=== PATIENT | female | born 1960 | race Two or more races ===

== ENCOUNTER 2016-12-13 15:48 | Emergency (ER) | payer SELFPAY ==
[~2016-12-13] VITALS: Ht 162.6 cm; Wt 72.6 kg
[2016-12-13] MEDS ORDERED: VITATAB11 PO (16:08)
[2016-12-13] MEDS ORDERED: LOSA25TA8 PO (16:08)
[2016-12-13] MEDS ORDERED: GLYB5TA PO (16:08)
[2016-12-13] MEDS ORDERED: [UNRECOGNIZED DRUG - OTHER] SQ (16:08)
[2016-12-13] MEDS ORDERED: PLAV75TA38 PO (16:08)
[2016-12-13] MEDS ORDERED: HYDR50TAB PO (16:08)
[2016-12-13] MEDS ORDERED: ASPI325T PO (16:08)
[2016-12-13] MEDS ORDERED: METO50TA2 PO (16:08)
[2016-12-13] MEDS ORDERED: LORA2TAB9 PO (16:08)
[2016-12-13 18:59] VITALS: BP 178/8
== END 2016-12-13 19:04 | disposition home or self-care (01) ==
LOC: M ED 18:09
DX: I10 Essential (primary) hypertension (principal); Z86.73 Personal history of transient ischemic attack (TIA), and cerebral infarction without residual deficits; Z79.02 Long term (current) use of antithrombotics/antiplatelets; Z79.82 Long term (current) use of aspirin; Z79.899 Other long term (current) drug therapy

== ENCOUNTER → 2017-01-12 | Outpatient (REF) | payer OTHER ==
[~2017-01-12] MED LIST: ASPI325T PO; GLYB5TA PO; HYDR50TAB PO; LORA2TAB9 PO; LOSA25TA8 PO; METO50TA2 PO; PLAV75TA38 PO; VITATAB11 PO; [UNRECOGNIZED DRUG - OTHER] SQ
== END ==
LOC: M LABDRAWP 11:18 → MERGE 11:18
DX: Z11.3 Encounter for screening for infections with a predominantly sexual mode of transmission (principal); Z53.9 Procedure and treatment not carried out, unspecified reason

== ENCOUNTER → 2017-01-12 | Outpatient (CLI) | payer SELFPAY | LOC: M LAB 13:23 | DX: R76.11 Nonspecific reaction to tuberculin skin test without active tuberculosis (principal) ==

== ENCOUNTER → 2017-01-12 | Outpatient (REF) | payer OTHER | LOC: MERGE 11:08 → M SFHCPLAZ 11:08 | PROVIDERS: ATTEND Family Medicine | DX: Z13.0 Encounter for screening for diseases of the blood and blood-forming organs and certain disorders involving the immune mechanism (principal); I10 Essential (primary) hypertension; R22.1 Localized swelling, mass and lump, neck; E11.9 Type 2 diabetes mellitus without complications; Z11.4 Encounter for screening for human immunodeficiency virus [HIV]; Z11.3 Encounter for screening for infections with a predominantly sexual mode of transmission ==

== ENCOUNTER → 2017-01-21 | Outpatient (CLI) | payer SELFPAY ==
[2017-01-21 09:48] LABS: MEAN CORPUSCULAR HEMOGLOBIN 23.9 pg (27.0-33.0); MEAN CORPUSCULAR HGB CONC 31.7 g/dl (32.0-36.5); MEAN CORPUSCULAR VOLUME 75.5 fl (80.0-96.0); RED CELL DISTRIBUTION WIDTH 14.1 % (11.5-14.5); WHITE BLOOD COUNT 14.7 K/mm3 (4.0-10.0)
[2017-01-21 10:11] LABS: ALBUMIN 3.3 GM/DL (3.2-5.2); ALBUMIN/GLOBULIN RATIO 0.66 (1.00-1.93); ALKALINE PHOSPHATASE 166 U/L (45-117); ALT/SGPT 18 U/L (12-78); ANION GAP 9 MEQ/L (8-16); AST/SGOT 9 U/L (15-37); BILIRUBIN,TOTAL 0.2 MG/DL (0.2-1.0); BLOOD UREA NITROGEN 63 MG/DL (7-18); CALCIUM LEVEL 8.9 MG/DL (8.5-10.1); CARBON DIOXIDE LEVEL 21 MEQ/L (21-32); CHLORIDE LEVEL 100 MEQ/L (98-107); CHOLESTEROL LEVEL 239 MG/DL (<200); CREATININE FOR GFR 1.78 MG/DL (0.55-1.02); FREE T4 1.26 NG/DL (0.76-1.46); GLOMERULAR FILTRATION RATE 31.2 (>51); GLUCOSE, FASTING 208 MG/DL (70-105); SODIUM LEVEL 130 MEQ/L (136-145); TOTAL PROTEIN 8.3 GM/DL (6.4-8.2); TRIGLYCERIDES LEVEL 612 MG/DL (<150)
[2017-01-22 09:59] LABS: FOLATE > 24.0 NG/ML; VITAMIN B12 LEVEL > 2000 PG/ML
== END ==
LOC: M LAB 08:01
PROVIDERS: ATTEND Family Medicine
DX: Z13.0 Encounter for screening for diseases of the blood and blood-forming organs and certain disorders involving the immune mechanism (principal); Z11.1 Encounter for screening for respiratory tuberculosis; E11.9 Type 2 diabetes mellitus without complications; R22.1 Localized swelling, mass and lump, neck; I10 Essential (primary) hypertension

== ENCOUNTER → 2017-01-21 | Outpatient (CLI) | payer SELFPAY | LOC: M LAB 08:09 | DX: Z11.3 Encounter for screening for infections with a predominantly sexual mode of transmission (principal) ==

== ENCOUNTER → 2017-01-31 | Outpatient (REF) | payer OTHER ==
[~2017-01-31] MED LIST changes: -METO50TA2 PO; +METO50TA7 PO; +PLAV1TAB2 PO; -PLAV75TA38 PO
== END ==
LOC: M SFHCPLAZ 15:40
PROVIDERS: ATTEND Family Medicine
DX: E11.29 Type 2 diabetes mellitus with other diabetic kidney complication (principal)

== ENCOUNTER → 2017-05-01 | Outpatient (REF) | payer OTHER ==
[2017-05-01 12:27] LABS: BASO # 0.1 10^3/uL (0.0-0.2); BASO % 0.6 % (0.0-1.0); EOS # 0.4 10^3/uL (0.0-0.50); IMMATURE GRANULOCYTE % 0.4 % (0-0); LYMPH # 2.4 10^3/uL (1.5-4.5); LYMPH % 23.1 % (24.0-44.0); MEAN CORPUSCULAR HEMOGLOBIN 22.7 pg (27.0-33.0); MEAN CORPUSCULAR HGB CONC 31.4 g/dl (32.0-36.5); MONO # 0.6 10^3/uL (0.0-0.8); MONO % 5.4 % (0.0-5.0); NEUTROPHILS # 6.9 10^3/uL (1.8-7.7); NEUTROPHILS % 66.5 % (36.0-66.0); PLATELET COUNT, AUTOMATED 528 10^3/uL (150-450); WHITE BLOOD COUNT 10.4 10^3/uL (4.0-10.0)
[2017-05-01 12:29] LABS: ADD MANUAL DIFFER NO; ADD MORPHOLOGY? YES; DIFF SLIDE NUMBER 239; MEAN CORPUSCULAR VOLUME 72.2 fl (80.0-96.0)
[2017-05-01 12:58] LABS: INR 0.92
[2017-05-01 13:01] LABS: CALCIUM LEVEL 9.1 MG/DL (8.5-10.1); GLOMERULAR FILTRATION RATE 27.2 (>51); POTASSIUM SERUM 4.7 MEQ/L (3.5-5.1)
[2017-05-01 13:30] LABS: HYPOCHROMASIA 1+; MICROCYTOSIS 2+
== END ==
LOC: M LAB REF 12:01
PROVIDERS: ATTEND Surgery Vascular Surgery
DX: Z01.818 Encounter for other preprocedural examination (principal); D69.8 Other specified hemorrhagic conditions; I70.213 Atherosclerosis of native arteries of extremities with intermittent claudication, bilateral legs

== ENCOUNTER → 2017-05-10 | Outpatient (REF) | payer OTHER ==
[2017-05-10 14:12] LABS: CREATININE FOR GFR 2.09 MG/DL (0.55-1.02); GLOMERULAR FILTRATION RATE 25.9 (>51)
== END ==
LOC: M LAB REF 11:32
PROVIDERS: ATTEND Surgery Vascular Surgery
DX: N18.6 End stage renal disease (principal); I70.213 Atherosclerosis of native arteries of extremities with intermittent claudication, bilateral legs

== ENCOUNTER → 2017-08-13 | Outpatient (REF) | payer OTHER | LOC: M SFHCPLAZ 18:52 | DX: E11.59 Type 2 diabetes mellitus with other circulatory complications (principal); D50.9 Iron deficiency anemia, unspecified; L97.419 Non-pressure chronic ulcer of right heel and midfoot with unspecified severity; E87.1 Hypo-osmolality and hyponatremia ==

== ENCOUNTER → 2017-08-24 | Outpatient (REF) | payer OTHER ==
[2017-08-24 14:21] LABS: ESTIMATED AVERAGE GLUCOSE 226 MG/DL (60-110); HEMOGLOBIN A1c 9.5 %
[2017-08-27 15:33] LABS: CREATININE, URINE 45.7 MG/DL; MAU/CREAT RATIO 509.8 MCG/MG (0.0-30.0)
== END ==
LOC: M SFHCPLAZ 12:00
DX: E11.59 Type 2 diabetes mellitus with other circulatory complications (principal)

== ENCOUNTER → 2017-08-30 | Outpatient (CLI) | payer MEDICAID, OTHER ==
[2017-08-30 14:37] LABS: BASO # 0.1 10^3/uL (0.0-0.2); BASO % 0.6 % (0.0-1.0); EOS # 0.8 10^3/uL (0.0-0.50); EOS % 6.8 % (0.0-3.0); HEMATOCRIT 32.2 % (36.0-47.0); HEMOGLOBIN 9.8 g/dl (12.0-16.0); IMMATURE GRANULOCYTE # 0.1 10^3/uL (0-0); IMMATURE GRANULOCYTE % 0.4 % (0-0); LYMPH # 3.2 10^3/uL (1.5-4.5); LYMPH % 27.2 % (24.0-44.0); MEAN CORPUSCULAR HGB CONC 30.4 g/dl (32.0-36.5); MEAN CORPUSCULAR VOLUME 72.4 fl (80.0-96.0); MONO # 0.7 10^3/uL (0.0-0.8); MONO % 5.7 % (0.0-5.0); NEUTROPHILS % 59.3 % (36.0-66.0); PLATELET COUNT, AUTOMATED 558 10^3/uL (150-450); RED BLOOD COUNT 4.45 10^6/uL (4.00-5.40); RED CELL DISTRIBUTION WIDTH 14.9 % (11.5-14.5); WHITE BLOOD COUNT 11.8 10^3/uL (4.0-10.0)
[2017-08-30 14:57] LABS: ERYTHROCYTE SEDIMENTATION RATE 118 mm/hr (0-30)
[2017-08-30 15:42] LABS: ESTIMATED AVERAGE GLUCOSE 226 MG/DL (60-110); HEMOGLOBIN A1c 9.5 %
[2017-08-30 16:03] LABS: ANION GAP 10 MEQ/L (8-16); BLOOD UREA NITROGEN 58 MG/DL (7-18); CALCIUM LEVEL 9.2 MG/DL (8.5-10.1); CARBON DIOXIDE LEVEL 22 MEQ/L (21-32); CHLORIDE LEVEL 104 MEQ/L (98-107); CREATININE FOR GFR 1.83 MG/DL (0.55-1.30); FERRITIN 110 NG/ML (8-252); GLOMERULAR FILTRATION RATE 30.2 (>51); GLUCOSE, FASTING 274 MG/DL (70-100); IRON (FE) 64 UG/DL (50-170); PERCENT SATURATION 22.9 % (13.2-45.0); POTASSIUM SERUM 4.8 MEQ/L (3.5-5.1); SODIUM LEVEL 136 MEQ/L (136-145); TOTAL IRON BINDING CAPACITY 279 UG/DL (250-450)
== END ==
LOC: M LAB 13:01
DX: M85.9 Disorder of bone density and structure, unspecified (principal); E11.59 Type 2 diabetes mellitus with other circulatory complications; L97.419 Non-pressure chronic ulcer of right heel and midfoot with unspecified severity; D50.9 Iron deficiency anemia, unspecified; E87.1 Hypo-osmolality and hyponatremia; S66.912D Strain of unspecified muscle, fascia and tendon at wrist and hand level, left hand, subsequent encounter; X58.XXXD Exposure to other specified factors, subsequent encounter; Y92.89 Other specified places as the place of occurrence of the external cause
CPT/HCPCS: 73110

== ENCOUNTER → 2017-09-01 | Outpatient (REF) | payer MEDICAID | LOC: M LAB 14:05 | DX: E11.59 Type 2 diabetes mellitus with other circulatory complications (principal); D50.9 Iron deficiency anemia, unspecified; L97.419 Non-pressure chronic ulcer of right heel and midfoot with unspecified severity; E87.1 Hypo-osmolality and hyponatremia | CPT/HCPCS: 82270 ==

== ENCOUNTER → 2017-09-02 | Outpatient (REF) | payer MEDICAID ==
[2017-09-02 13:20] LABS: MAU/CREAT RATIO 465.8 MCG/MG (0.0-30.0)
== END ==
LOC: M LAB 12:14
DX: Z00.00 Encounter for general adult medical examination without abnormal findings (principal)

== ENCOUNTER → 2017-12-28 | Outpatient (REF) | payer MEDICAID, OTHER ==
[2017-12-28 14:21] LABS: BASO # 0.1 10^3/uL (0.0-0.2); BASO % 0.6 % (0.0-1.0); EOS # 0.4 10^3/uL (0.0-0.50); EOS % 4.1 % (0.0-3.0); HEMATOCRIT 27.6 % (36.0-47.0); HEMOGLOBIN 8.7 g/dl (12.0-15.5); IMMATURE GRANULOCYTE % 0.5 % (0-3.0); LYMPH # 2.9 10^3/uL (1.5-4.5); LYMPH % 27.6 % (24.0-44.0); MEAN CORPUSCULAR HEMOGLOBIN 23.8 pg (27.0-33.0); MEAN CORPUSCULAR HGB CONC 31.5 g/dl (32.0-36.5); MEAN CORPUSCULAR VOLUME 75.4 fl (80.0-96.0); MONO # 0.6 10^3/uL (0.0-0.8); MONO % 5.5 % (0.0-5.0); NEUTROPHILS # 6.5 10^3/uL (1.8-7.7); NEUTROPHILS % 61.7 % (36.0-66.0); PLATELET COUNT, AUTOMATED 452 10^3/uL (150-450); RED BLOOD COUNT 3.66 10^6/uL (4.00-5.40); RED CELL DISTRIBUTION WIDTH 16.4 % (11.5-14.5); WHITE BLOOD COUNT 10.5 10^3/uL (4.0-10.0)
[2017-12-28 14:27] LABS: APPEARANCE, URINE MANUAL CLOUDY (CLEAR); COLOR, URINE MANUAL LT YELLOW (YELLOW); PROTEIN, URINE MANUAL 3+ mg/dL (NEGATIVE); SPECIFIC GRAVITY,URINE MANUAL 1.006 (1.002-1.035)
[2017-12-28 14:29] LABS: BILIRUBIN, URINE MANUAL NEGATIVE (NEGATIVE); BLOOD URINE MANUAL POSITIVE (NEGATIVE); GLUCOSE, URINE (UA) MANUAL NEGATIVE (NEGATIVE); KETONE, URINE MANUAL NEGATIVE (NEGATIVE); LEUKOCYTE ESTERASE, URINE MAN POSITIVE (NEGATIVE); NITRITE, URINE MANUAL NEGATIVE (NEGATIVE); UROBILINOGEN, URINE MANUAL NORMAL (NORMAL)
[2017-12-28 14:30] LABS: MICROSCOPIC INDICATED? MAN YES (NO)
[2017-12-28 14:31] LABS: BACTERIA, URINE LARGE AMOUNT; HYALINE CAST, URINE NONE SEEN /lpf (0-1); MICROSCOPIC EXAM PERFORMED; SQUAMOUS EPITHELIAL CELL URINE SMALL AMOUNT /hpf (SMALL AMT); WBC, URINE 15-20 /hpf (0-3)
[2017-12-28 14:37] LABS: ALBUMIN 3.1 GM/DL (3.2-5.2); ANION GAP 10 MEQ/L (8-16); BLOOD UREA NITROGEN 67 MG/DL (7-18); CALCIUM LEVEL 8.9 MG/DL (8.5-10.1); CARBON DIOXIDE LEVEL 18 MEQ/L (21-32); CHLORIDE LEVEL 111 MEQ/L (98-107); CREATININE FOR GFR 2.13 MG/DL (0.55-1.30); GLOMERULAR FILTRATION RATE 25.2 (>51); GLUCOSE, FASTING 209 MG/DL (70-100); MAGNESIUM LEVEL 2.2 MG/DL (1.8-2.4); PHOSPHORUS LEVEL 4.5 MG/DL (2.5-4.9); POTASSIUM SERUM 4.9 MEQ/L (3.5-5.1); SODIUM LEVEL 139 MEQ/L (136-145); URIC ACID 6.2 MG/DL (2.6-6.0)
[2017-12-28 14:41] LABS: TOTAL 25(OH) VITAMIN D 18.1 NG/ML (30.0-100.0)
[2017-12-28 14:42] LABS: PTH INTACT 69.8 PG/ML (18.5-88.0)
[2017-12-31 14:23] LABS: FERRITIN 112 NG/ML (8-252); IRON (FE) 53 UG/DL (50-170); PERCENT SATURATION 21.5 % (13.2-45.0); TOTAL IRON BINDING CAPACITY 247 UG/DL (250-450)
== END ==
LOC: M LAB REF 13:51
DX: N18.3 Chronic kidney disease, stage 3 (moderate) (principal); E11.22 Type 2 diabetes mellitus with diabetic chronic kidney disease; N25.81 Secondary hyperparathyroidism of renal origin; D63.1 Anemia in chronic kidney disease; E55.9 Vitamin D deficiency, unspecified

== ENCOUNTER 2018-01-03 10:45 | Emergency (ER) | payer MEDICAID, OTHER ==
[2018-01-03] MEDS: CLINDAMYCIN 150 MG CAP PO (11:54)
== END 2018-01-03 12:03 | disposition home or self-care (01) ==
LOC: M ED 10:45
DX: J34.0 Abscess, furuncle and carbuncle of nose (principal); I10 Essential (primary) hypertension; E78.70 Disorder of bile acid and cholesterol metabolism, unspecified; Z86.73 Personal history of transient ischemic attack (TIA), and cerebral infarction without residual deficits; Z79.899 Other long term (current) drug therapy
CPT/HCPCS: 99282

== ENCOUNTER 2018-01-16 06:44 | Outpatient (CLI) | payer MEDICAID ==
[2018-01-16] MEDS ORDERED: IRON SUCROSE 475 MG in NS 250 ML IV (07:00)
[2018-01-16] MEDS ORDERED: IRON SUCROSE 25 MG in NS 50 ML IV (07:00)
== END 2018-01-16 08:45 | disposition home or self-care (01) ==
LOC: M INFU 06:44
DX: D50.9 Iron deficiency anemia, unspecified (principal); Z53.8 Procedure and treatment not carried out for other reasons

== ENCOUNTER → 2018-01-25 | Outpatient (CLI) | payer MEDICAID ==
[2018-01-25 10:20] LABS: CREATININE,RANDOM URINE 32.6 MG/DL
[2018-01-25 10:20] LABS: TOTAL PROTEIN,RANDOM URINE 56.4 MG/DL (0.0-12.0)
[2018-01-25 10:24] LABS: FERRITIN 126 NG/ML (8-252); IRON (FE) 65 UG/DL (50-170); PERCENT SATURATION 28.8 % (13.2-45.0); TOTAL IRON BINDING CAPACITY 226 UG/DL (250-450)
== END ==
LOC: M LAB 09:25
DX: N18.4 Chronic kidney disease, stage 4 (severe) (principal)
CPT/HCPCS: 83550

== ENCOUNTER → 2018-01-29 | Outpatient (CLI) | payer MEDICAID ==
[2018-01-29 14:16] LABS: BASO # 0.1 10^3/uL (0.0-0.2); BASO % 0.7 % (0.0-1.0); EOS # 0.9 10^3/uL (0.0-0.50); EOS % 8.4 % (0.0-3.0); HEMOGLOBIN 8.9 g/dl (12.0-15.5); IMMATURE GRANULOCYTE % 0.4 % (0-3.0); LYMPH # 2.7 10^3/uL (1.5-4.5); LYMPH % 24.1 % (24.0-44.0); MEAN CORPUSCULAR HEMOGLOBIN 24.3 pg (27.0-33.0); MEAN CORPUSCULAR HGB CONC 31.8 g/dl (32.0-36.5); MEAN CORPUSCULAR VOLUME 76.5 fl (80.0-96.0); MONO # 0.6 10^3/uL (0.0-0.8); MONO % 5.6 % (0.0-5.0); NEUTROPHILS # 6.7 10^3/uL (1.8-7.7); NEUTROPHILS % 60.8 % (36.0-66.0); PLATELET COUNT, AUTOMATED 418 10^3/uL (150-450); RED BLOOD COUNT 3.66 10^6/uL (4.00-5.40); RED CELL DISTRIBUTION WIDTH 15.9 % (11.5-14.5); WHITE BLOOD COUNT 11.1 10^3/uL (4.0-10.0)
[2018-01-29 14:25] LABS: APPEARANCE, URINE CLOUDY (CLEAR); BACTERIA, URINE AUTO 3+ (NEGATIVE); BILIRUBIN, URINE AUTO NEGATIVE (NEGATIVE); BLOOD, URINE BLOOD NEGATIVE (NEGATIVE); COLOR, URINE YELLOW (YELLOW); GLUCOSE, URINE (UA) AUTO 1+ mg/dL (NEGATIVE); KETONE, URINE AUTO NEGATIVE (NEGATIVE); LEUKOCYTE ESTERASE, URINE AUTO 3+ (NEGATIVE); MUCUS, URINE SMALL (NEGATIVE); NITRITE, URINE AUTO NEGATIVE (NEGATIVE); PROTEIN, URINE AUTO 2+ mg/dL (NEGATIVE); RBC, URINE AUTO 17 /HPF (0-3); SPECIFIC GRAVITY URINE AUTO 1.013 (1.002-1.035); SQUAMOUS EPITHELIAL CELL UR AU 0 /HPF (0-6); UROBILINOGEN, URINE AUTO 0.2 mg/dL (0.0-2.0); WBC, URINE AUTO TNTC /HPF (0-3)
[2018-01-29 14:53] LABS: TOTAL PROTEIN,RANDOM URINE 173.5 MG/DL (0.0-12.0); URINE TOTAL PROTEIN 173.5 MG/DL (0-12)
[2018-01-29 14:57] LABS: ALBUMIN 3.1 GM/DL (3.2-5.2); ANION GAP 12 MEQ/L (8-16); BLOOD UREA NITROGEN 56 MG/DL (7-18); CALCIUM LEVEL 8.6 MG/DL (8.5-10.1); CARBON DIOXIDE LEVEL 22 MEQ/L (21-32); CHLORIDE LEVEL 102 MEQ/L (98-107); COMPLEMENT C3 165 MG/DL (90-180); COMPLEMENT C4 42.2 MG/DL (10-40); CREATININE FOR GFR 2.22 MG/DL (0.55-1.30); GLOMERULAR FILTRATION RATE 24.1 (>51); GLUCOSE, FASTING 307 MG/DL (70-100); MAGNESIUM LEVEL 2.3 MG/DL (1.8-2.4); PHOSPHORUS LEVEL 4.9 MG/DL (2.5-4.9); POTASSIUM SERUM 5.1 MEQ/L (3.5-5.1); SODIUM LEVEL 136 MEQ/L (136-145); TOTAL PROTEIN 7.9 GM/DL (6.4-8.2); URIC ACID 6.7 MG/DL (2.6-6.0)
[2018-01-29 15:05] LABS: PTH INTACT 156.8 PG/ML (18.5-88.0); VITAMIN B12 LEVEL 1709 PG/ML
[2018-01-29 15:06] LABS: FOLATE 21.5 NG/ML
[2018-01-31 11:54] LABS: ALBUMIN 3.84 GM/DL (3.29-5.55); ALBUMIN % 48.6 % (55.8-66.1); ALPHA-1-GLOBULIN % 4.9 % (2.9-4.9); ALPHA-1-GLOBULINS 0.39 GM/DL (0.17-0.41); ALPHA-2-GLOBULINS 1.14 GM/DL (0.42-0.99); ALPHA-2-GLOBULINS % 14.4 % (7.1-11.8); BETA-1-GLOBULINS 0.41 GM/DL (0.28-0.60); BETA-1-GLOBULINS % 5.2 % (4.7-7.2); BETA-2-GLOBULINS 0.52 GM/DL (0.19-0.55); BETA-2-GLOBULINS % 6.6 % (3.2-6.5); GAMMA GLOBULIN % 20.3 % (11.1-18.8)
[2018-01-31 13:13] LABS: UPEP INTERPRETATION NO M-SPIKE NOTED; URINE VOLUME RANDOM ML
[2018-02-01 00:10] LABS: ANTINUCLEAR ANTIBODIES DIRECT Negative (Negative); FREE KAPPA LIGHT CHAINS SERUM 102.3 mg/L (3.3-19.4); FREE LAMBDA LIGHT CHAINS SERUM 38.6 mg/L (5.7-26.3); KAPPA/LAMBDA RATIO SERUM 2.65 (0.26-1.65)
[2018-02-01 14:18] LABS: ANCA-ATYPICAL <1:20 titer (Neg:<1:20); ANTI DOUBLE STRAND-DNA AB 3 IU/mL (0-9); CYTOPLASMIC NEUTROP AB ANCA-C <1:20 titer (Neg:<1:20); PERINUCLEAR AB ANCA-P <1:20 titer (Neg:<1:20)
== END ==
LOC: M LAB 13:28
DX: N18.3 Chronic kidney disease, stage 3 (moderate) (principal); E11.22 Type 2 diabetes mellitus with diabetic chronic kidney disease; N25.81 Secondary hyperparathyroidism of renal origin
CPT/HCPCS: 82746

== ENCOUNTER → 2018-01-29 | Outpatient (CLI) | payer MEDICAID ==
[2018-02-02 00:12] LABS: HEMOGLOBIN A2 QUANTITATIVE 2.2 % (1.8-3.2)
== END ==
LOC: M LAB 13:32
DX: D50.9 Iron deficiency anemia, unspecified (principal)

== ENCOUNTER → 2018-02-20 | Outpatient (REF) | payer MEDICAID ==
[2018-02-20 11:32] LABS: APPEARANCE, URINE HAZY (CLEAR); BACTERIA, URINE AUTO 2+ (NEGATIVE); BILIRUBIN, URINE AUTO NEGATIVE (NEGATIVE); BLOOD, URINE BLOOD NEGATIVE (NEGATIVE); COLOR, URINE YELLOW (YELLOW); GLUCOSE, URINE (UA) AUTO NEGATIVE (NEGATIVE); KETONE, URINE AUTO NEGATIVE (NEGATIVE); LEUKOCYTE ESTERASE, URINE AUTO 3+ (NEGATIVE); MUCUS, URINE SMALL (NEGATIVE); NITRITE, URINE AUTO NEGATIVE (NEGATIVE); PROTEIN, URINE AUTO 2+ mg/dL (NEGATIVE); RBC, URINE AUTO 1 /HPF (0-3); SQUAMOUS EPITHELIAL CELL UR AU 0 /HPF (0-6); UROBILINOGEN, URINE AUTO 0.2 mg/dL (0.0-2.0); WBC, URINE AUTO 53 /HPF (0-3)
[2018-02-20 11:44] LABS: BASO # 0.1 10^3/uL (0.0-0.2); BASO % 0.6 % (0.0-1.0); EOS # 0.5 10^3/uL (0.0-0.50); EOS % 4.4 % (0.0-3.0); HEMATOCRIT 30.3 % (36.0-47.0); HEMOGLOBIN 9.5 g/dl (12.0-15.5); IMMATURE GRANULOCYTE % 0.3 % (0-3.0); LYMPH # 3.1 10^3/uL (1.5-4.5); LYMPH % 26.4 % (24.0-44.0); MEAN CORPUSCULAR HEMOGLOBIN 23.7 pg (27.0-33.0); MEAN CORPUSCULAR HGB CONC 31.4 g/dl (32.0-36.5); MEAN CORPUSCULAR VOLUME 75.6 fl (80.0-96.0); MONO # 0.7 10^3/uL (0.0-0.8); MONO % 5.7 % (0.0-5.0); NEUTROPHILS # 7.3 10^3/uL (1.8-7.7); NEUTROPHILS % 62.6 % (36.0-66.0); PLATELET COUNT, AUTOMATED 468 10^3/uL (150-450); RED BLOOD COUNT 4.01 10^6/uL (4.00-5.40); RED CELL DISTRIBUTION WIDTH 15.1 % (11.5-14.5); WHITE BLOOD COUNT 11.7 10^3/uL (4.0-10.0)
[2018-02-20 12:04] LABS: ALBUMIN 3.3 GM/DL (3.2-5.2); ANION GAP 12 MEQ/L (8-16); BLOOD UREA NITROGEN 77 MG/DL (7-18); CALCIUM LEVEL 8.9 MG/DL (8.5-10.1); CARBON DIOXIDE LEVEL 18 MEQ/L (21-32); CHLORIDE LEVEL 108 MEQ/L (98-107); CREATININE FOR GFR 2.07 MG/DL (0.55-1.30); GLOMERULAR FILTRATION RATE 26.1 (>51); GLUCOSE, FASTING 168 MG/DL (70-100); MAGNESIUM LEVEL 1.9 MG/DL (1.8-2.4); PHOSPHORUS LEVEL 4.5 MG/DL (2.5-4.9); POTASSIUM SERUM 4.9 MEQ/L (3.5-5.1); SODIUM LEVEL 138 MEQ/L (136-145); URIC ACID 5.6 MG/DL (2.6-6.0)
[2018-02-20 12:28] LABS: PTH INTACT 73.6 PG/ML (18.5-88.0)
== END ==
LOC: SKLABADC 10:12
DX: N18.3 Chronic kidney disease, stage 3 (moderate) (principal); N39.0 Urinary tract infection, site not specified; E11.22 Type 2 diabetes mellitus with diabetic chronic kidney disease; N25.81 Secondary hyperparathyroidism of renal origin

== ENCOUNTER → 2018-04-10 | Outpatient (REF) | payer MEDICAID ==
[2018-04-10 14:44] LABS: FERRITIN 140 NG/ML (8-252); IRON (FE) 59 UG/DL (50-170); TOTAL IRON BINDING CAPACITY 210 UG/DL (250-450); TOTAL PROTEIN,RANDOM URINE 145.5 MG/DL (0.0-12.0)
[2018-04-10 14:44] LABS: CREATININE,RANDOM URINE 41.1 MG/DL
== END ==
LOC: M LAB REF 13:27
DX: N18.4 Chronic kidney disease, stage 4 (severe) (principal); E11.22 Type 2 diabetes mellitus with diabetic chronic kidney disease; D63.1 Anemia in chronic kidney disease

== ENCOUNTER → 2018-07-08 | Outpatient (REF) | payer OTHER ==
[2018-07-08 18:10] LABS: FERRITIN 188 NG/ML (8-252); IRON (FE) 83 UG/DL (50-170); PERCENT SATURATION 38.8 % (13.2-45.0); TOTAL IRON BINDING CAPACITY 214 UG/DL (250-450)
== END ==
LOC: M LAB REF 17:06
DX: N18.4 Chronic kidney disease, stage 4 (severe) (principal); E11.22 Type 2 diabetes mellitus with diabetic chronic kidney disease; D63.1 Anemia in chronic kidney disease
CPT/HCPCS: 83550

== ENCOUNTER → 2018-09-28 | Outpatient (CLI) | payer OTHER ==
[~2018-09-28] MED LIST changes: +AGGR1CAP; +ALLO100T; +ALLO100T PO; +ASPI1CHW2; +AURY1TAB PO; +CHLO25TA PO; +CLEO300C2 PO; +CLOP75TA2; +D-101000; +FURO20TA2; +FURO20TA2 PO; +FURO40TA2 PO; +GABA-843; +GLIP5TAB20 PO; +GLIP5TAB8; +KEPP1TAB PO; +LANTINJ4 SC; +LEVETIRACETAM; +LOSA25TA14 PO; -LOSA25TA8 PO; +MAPA325T2 PO; +MUPI2OI; +NIFE60TA40; +OMEP20CA3 PO; +PROC1INJ5 IJ; +PROC20004 IJ; +SIMV20TA2 PO; +SODI325T9; +VITA100067 PO
--- NOTE | 2018-09-29 21:30 | ECGEPIP ---
Stationary ECG Study [facility] Test Date: 2018-09-28 Pat Name: KIRSTEN GARCIA Department: Room: - Gender: F Interrelated Special Education Teacher: MICHELLE : 1960 Requested By: Lyndon Awan Order Number: [id number] Reading MD: Sourav Weeks Measurements Intervals [place] Rate: 87 P: 32 AK: 160 QRS: -5 QRSD: 91 T: 31 QT: 366 QTc: 440 Interpretive Statements SINUS RHYTHM POSSIBLE ANTERIOR MYOCARDIAL INFARCTION, PROBABLY OLD VERSUS POOR R-WAVE PROGRESSION NO PRIOR TRACING IN THE SYSTEM Electronically Signed On 09-29-2018 21:30:51 EST by Sourav Weeks
== END ==
LOC: M EKG 12:44
PROVIDERS: ATTEND Anesthesiology
DX: Z01.818 Encounter for other preprocedural examination (principal); I10 Essential (primary) hypertension; E11.9 Type 2 diabetes mellitus without complications; Z86.73 Personal history of transient ischemic attack (TIA), and cerebral infarction without residual deficits; N28.89 Other specified disorders of kidney and ureter

== ENCOUNTER 2018-10-04 11:18 | Day surgery (SDC) | payer OTHER ==
[~2018-10-04] VITALS: Ht 167.6 cm; Wt 66.2 kg
[2018-10-04] MEDS ORDERED: LIDOCAINE 2% INJ 100 MG/5 ML SDV (FOR ANES.) As Ordered ONE (12:53)
[2018-10-04] MEDS ORDERED: ONDANSETRON 4MG/2ML VIAL (J2405) As Ordered ONE (12:53)
[2018-10-04] MEDS ORDERED: PROPOFOL 200 MG/20 ML VIAL As Ordered ONE (12:53)
[2018-10-04] MEDS ORDERED: fentaNYL 250 MCG/5 ML INJECTION (J3010) As Ordered ONE (12:53)
[2018-10-04] MEDS ORDERED: MIDAZOLAM INJ 2 MG/2 ML VIAL (J2250) As Ordered ONE (12:56)
[2018-10-04] MEDS ORDERED: KETAMINE HCL 200 MG/20 ML VIAL As Ordered ONE (12:56)
[2018-10-04] MEDS ORDERED: PHENYLEPHRINE INJ 10MG/ML VIAL (J2370) As Ordered ONE (12:59)
[2018-10-04] MEDS ORDERED: HumaLOG INSULIN (NovoLOG) PER UNIT As Ordered ONE (13:06)
[2018-10-04] MEDS ORDERED: HumaLOG INSULIN (NovoLOG) PER UNIT SC ONE ×3 (13:15→15:45)
[2018-10-04] MEDS ORDERED: HEPARIN SOD (PORCINE) 5000 UNITS/ML VIAL As Ordered ONE (13:25)
[2018-10-04] MEDS ORDERED: ISOVUE-300 61% 50ML VIAL (Q9967) As Ordered ONE (13:25)
[2018-10-04] MEDS ORDERED: LIDOCAINE 1% SDV INJ 30 ML VIAL As Ordered ONE (13:25)
[2018-10-04] MEDS ORDERED: BUPIVACAINE HCL 0.5% 30 ML VIAL As Ordered ONE (13:26)
[2018-10-04] MEDS ORDERED: D5W/0.45% SODIUM CHLORIDE 1,000 ML IV SCH (13:30)
[2018-10-04] MEDS ORDERED: D5W/0.2% SODIUM CHLORIDE 1,000 ML IV ONE (13:45)
[2018-10-04 15:40] VITALS: BP 180/88
[2018-10-04] MEDS ORDERED: LR 1,000 ML IV SCH (15:45)
[2018-10-04] MEDS ORDERED: fentaNYL 100 MCG/2 ML INJECTION (J3010) IV PRN (15:45)
[2018-10-04] MEDS ORDERED: PERCOCET 5MG/325MG TAB PO PRN (15:45)
--- NOTE | 2018-10-30 10:13 | RO ---
DATE OF PROCEDURE: 10/04/2018 PREOPERATIVE DIAGNOSIS: Chronic renal insufficiency nearing end-stage renal disease. POSTOPERATIVE DIAGNOSIS: Chronic renal insufficiency nearing end-stage renal disease. PROCEDURE Left brachiocephalic arteriovenous fistula autogenous creation. ATTENDING SURGEON: Taryn Hebert MD QA REVIEWER: None. ANESTHESIA: Local monitored anesthesia care (MAC). INDICATION: Patient is a 57-year-old female with chronic renal insufficiency nearing end-stage renal disease who will require access for hemodialysis. The patient will undergo placement of a left radiocephalic possible brachiocephalic arteriovenous fistula. Risks, benefits and alternative treatment options were discussed with the patient. ESTIMATED BLOOD LOSS: 15 mL. IV FLUIDS: 300 mL. HEPARIN: None. COMPLICATIONS: None. DRAINS: None. SPECIMENS: None. IMPLANTS: None. PROCEDURE: Patient was taken to the operating room, placed supine on the operating table and the left upper extremity was prepped and draped in a standard surgical fashion. A tourniquet was applied to the forearm which showed no good cephalic vein at the wrist. The tourniquet was moved into the upper arm and there was a small cephalic vein at the antecubital fossa. A transverse incision was made after anesthetizing overlying skin with 1% lidocaine mixed with 0.5% Marcaine. The cephalic vein and brachial artery were sharply dissected free and encircled with vessel loops. The cephalic vein was then transected as far distal as possible with the remnant ligated with a #2-0 silk suture ligature. The cephalic vein was dilated using heparinized saline and anastomosed to the brachial artery in an end-to-side fashion using #6-0 Prolene suture. The incision was then closed using #3-0 Monocryl in a running subcuticular fashion. Steri-Strips and dressings were applied. The patient tolerated the procedure well. All instrument, sponge, and needle counts were correct at the end of the case. There were no complications. Dr. Hebert was present for and directed the entire case. The patient was transferred to the recovery room awake, alert, extubated and in stable condition.
== END 2018-10-04 16:03 | disposition home or self-care (01) ==
LOC: M SDC 11:18
PROVIDERS: ATTEND Surgery Vascular Surgery
DX: N18.6 End stage renal disease (principal); I12.0 Hypertensive chronic kidney disease with stage 5 chronic kidney disease or end stage renal disease; E11.22 Type 2 diabetes mellitus with diabetic chronic kidney disease; E78.00 Pure hypercholesterolemia, unspecified; M10.9 Gout, unspecified; K21.9 Gastro-esophageal reflux disease without esophagitis; F41.9 Anxiety disorder, unspecified; F32.9 Major depressive disorder, single episode, unspecified; D63.1 Anemia in chronic kidney disease; G40.909 Epilepsy, unspecified, not intractable, without status epilepticus; I69.964 Other paralytic syndrome following unspecified cerebrovascular disease affecting left non-dominant side; R60.0 Localized edema; E79.0 Hyperuricemia without signs of inflammatory arthritis and tophaceous disease; N25.81 Secondary hyperparathyroidism of renal origin; Z79.899 Other long term (current) drug therapy; Z79.82 Long term (current) use of aspirin; Z79.01 Long term (current) use of anticoagulants; Z86.718 Personal history of other venous thrombosis and embolism; Z90.710 Acquired absence of both cervix and uterus
CPT/HCPCS: 36415; 36818; 84132; J2250; J2370; J2405; J3010

== ENCOUNTER → 2018-10-17 | Outpatient (CLI) | payer OTHER ==
[~2018-10-17] MED LIST changes: +ASPI-1 PO; -ASPI325T PO; +HEPARIN 1,000 UNITS/ML 10ML VIAL (FOR RADIOLOGY& DIALYSIS ONLY) As Ordered ONE; +ISOVUE-300 61% 50ML VIAL (Q9967) As Ordered ONE; +LIDOCAINE 2% MDV 20 ML VIAL As Ordered ONE; +MIDAZOLAM INJ 2 MG/2 ML VIAL (J2250) As Ordered ONE; +PROTAMINE SULF INJ 50 MG/5 ML VIAL (J2720) As Ordered ONE; +diphenhydrAMINE INJ 50MG/ML VIAL (J1200) As Ordered ONE; +fentaNYL 100 MCG/2 ML INJECTION (J3010) As Ordered ONE
--- NOTE | 2018-10-30 11:52 | REPIR ---
DATE OF PROCEDURE: 10/17/2018 ATTENDING SURGEON: Dr. Taryn Hebert ASSISTANTS: Gavi Meza and Hannah Hurt PREOPERATIVE DIAGNOSES: Bilateral lower extremity heel ulcers. Chronic renal insufficiency. POSTOPERATIVE DIAGNOSES: Bilateral lower extremity heel ulcers. Chronic renal insufficiency. PROCEDURE: Ultrasound-guided left common femoral artery cannulation. Selective right common femoral artery catheter placement. Selective right superficial femoral artery catheter placement. MYNX closure of the left common femoral arteriotomy. INDICATION: Patient is a 57-year-old female with bilateral lower extremity heel ulcers which are not healing and nonpalpable pulses with the right lower extremity being worse than the left. The patient will undergo angiogram with possible angioplasty, stent and/or atherectomy. Risks, benefits and alternative treatment options were discussed with the patient. ANESTHESIA: Local with sedation with 1 mg Versed, 50 mcg of fentanyl, 10 mL of 2% lidocaine. FLUORO TIME: 0.9 minutes. CONTRAST: 2 mL. SEDATION TIME: was from 7:46 a.m. to 08:15 a.m. for a total of 29 minutes. COMPLICATIONS: None. DRAINS: None. SPECIMENS: None. PROCEDURE: Patient was taken to the angiography suite, placed supine on the angiography table and the left common femoral artery was cannulated. Catheter was brought up and over the bifurcation, placed in the right common femoral artery and an angiogram was performed. Catheter was advanced into the profunda femoris artery and a right lower extremity angiogram was performed. This showed complete occlusion of the superficial femoral artery and high-grade stenosis in the midportion of the profunda femoris artery. Catheters and wires were removed. A MYNX closure device was used to close the arteriotomy in the left common femoral artery with an additional 10 minutes of adjunctive pressure applied for hemostasis. Dressings were then applied. The patient tolerated the procedure well. All instrument, sponge and needle counts were correct at the end the case. There were no complications. Dr. Hebert was present for and directed the entire case. The patient was transferred to the recovery area and subsequently discharged in stable condition.
== END | disposition home or self-care (01) ==
LOC: M IRPRO 06:30
PROVIDERS: ATTEND Surgery Vascular Surgery
DX: I70.234 Atherosclerosis of native arteries of right leg with ulceration of heel and midfoot (principal); L97.419 Non-pressure chronic ulcer of right heel and midfoot with unspecified severity; L97.429 Non-pressure chronic ulcer of left heel and midfoot with unspecified severity; I70.92 Chronic total occlusion of artery of the extremities; N18.9 Chronic kidney disease, unspecified
CPT/HCPCS: 36247; 75710; 75774; C1760; C1769; C1887; C1894; G0269; J2250; J3010; Q9967

== ENCOUNTER → 2018-10-28 | Outpatient (CLI) | payer OTHER ==
[~2018-10-28] MED LIST changes: +ACETAMINOPHEN 325 MG TAB As Ordered ONE; +BUPIVACAINE HCL 0.5% 10 ML VIAL As Ordered ONE; +ISOVUE-300 61% 100ML VIAL (Q9967) As Ordered ONE; -ISOVUE-300 61% 50ML VIAL (Q9967) As Ordered ONE; +ISOVUE-370 76% 125ML VIAL (Q9967 PER ML) As Ordered ONE
[2018-10-28 09:45] LABS: HEMATOCRIT 30.6 % (36.0-47.0); HEMOGLOBIN 9.8 g/dl (12.0-15.5); PLATELET COUNT, AUTOMATED 492 10^3/uL (150-450); RED BLOOD COUNT 4.08 10^6/uL (4.00-5.40); WHITE BLOOD COUNT 13.6 10^3/uL (4.0-10.0)
[2018-10-28 10:05] LABS: CALCIUM LEVEL 8.8 MG/DL (8.5-10.1); CREATININE FOR GFR 2.91 MG/DL (0.55-1.30); GLOMERULAR FILTRATION RATE 17.6 (>51); POTASSIUM SERUM 4.4 MEQ/L (3.5-5.1)
--- NOTE | 2018-10-29 16:18 | ROOPDOC ---
[facility] Report Of Operation Report of Operation DATE OF PROCEDURE: PREPROCEDURE DIAGNOSES: . POSTPROCEDURE DIAGNOSES: . PROCEDURE: Aortogram. iliofemoral angiogram. Selective right common femoral artery catheter placement with right lower extremity angiogram. Selective right superficial femoral artery catheter placement with right lower extremity angiogram. Selective right popliteal artery catheter placement with right lower extremity angiogram. Recanalization of the occluded superficial femoral artery and popliteal artery junction. Right popliteal artery angioplasty with 6 x 100 balloon. Right superficial femoral artery angioplasty with 6 x 100 balloon. Right common femoral artery angioplasty with 6 x 100 balloon. MYNX closure of the left common femoral arteriotomy. SURGEON: Dr. Taryn Hebert MD BOOK CUTTER: Gavi Hernandez and Omari Preciado ANESTHESIA: Local with mL of 2% lidocaine INDICATION: The patient is a . The patient presents now with in the left foot and will undergo a left lower extremity angiogram with possible angioplasty, stent and/or arthrectomy. The procedure was described in detail to the patient. Risks, benefits and alternative treatment options were discussed with the patient. Alternative treatment options including but were not limited to no intervention. Benefits include but were not limited to evaluation of ar terial inflow to the right lower extremity with possible intervention improving blood flow to the right foot. Risks included but were not limited to infection, bleeding, renal failure requiring hemodialysis, retroperitoneal hematoma, possible need for surgical intervention, allergic reaction and her complication from the prepping and draping materials, sedation related complication, possible requirement for transfusion of blood products, scarring of the skin, bruising, nerve injury, anesthetic complications, cerebrovascular accident, myocardial infarction, pulmonary embolus, deep venous thrombosis, loss of limb, loss of life and poor outcome. Patient's questions were answered. Patient voices understanding of these risks, benefits and alternative treatment options. Patient voices acceptance of the risks associated with left lower extremity angiogram with possible angioplasty, stent and/or atherectomy and agrees to proceed with the procedure excepting the associated risks of the procedure. SEDATION TIME:. The sedation was administered by . The cardiopulmonary monitoring during sedation was performed by . Administration of sedation and cardiopulmonary monitoring were performed under my direct supervision and direction. I was present for and directed the entire case. There were no sedation related complications. Patient was stable post sedation and returned to pre-sedation status. FLUORO TIME: minutes CONTRAST: mL of isovue 300 HEPARIN: units COMPLICATION: None DRAINS: None. SPECIMENS: None. IMPLANTS: Mynx closure device to close the femoral arteriotomy. DESCRIPTION OF PROCEDURE: The patient was taken to the angiography suite and placed supine on the angiography room table and then prepped and draped in a standard surgical fashion. A procedural time-out was conducted by myself and the team members in the room, confirming the correct procedure, patient and laterality. The left common femoral artery was then cannulated using a micropuncture needle after anesthetized the overlying skin with 2% lidocaine. A micropuncture wire was advanced through the micropuncture needle which was up-sized to a micropunc ture sheath. The Willoughby wire was then advanced through the micropuncture sheath which was up-sized to a 5 Panamanian sheath. The Omni flush catheter was advanced over the Willoughby wire placed in the aorta and an aortogram was performed. The Omni flush catheter was pulled down to the level of the bifurcation of the iliac arteries and and iliofemoral angiogram was performed. The Omni flush catheter was advanced up and over the bifurcation of the iliac arteries using the Willoughby wire, with some difficulty due to the calcific atherosclerotic plaque at the bifurcation of the iliac arteries. The Omni flush catheter was placed in the right common femoral artery and a right lower extremity angiogram was performed showing diffuse moderate atherosclerotic arterial occlusive disease in the common femoral artery above the junction of the superficial femoral and profunda femoris arteries as well as diffuse mild to moderate superficial femoral arterial atherosclerotic disease down to the junction of the popliteal artery where there was occlusion of the superficial femoral and popliteal artery junction. The popliteal artery in the above and below knee region showed diffuse moderate atherosclerotic arterial occlusive disease.. The Willoughby wire was then used to bring a 6 Panamanian destination sheath up and over the bifurcation of the iliac arteries with the tip of the destination sheath was placed in the right common femoral artery. The patient was given 7000 units of heparin. The angled glide catheter was advanced selectively into the superficial femoral artery and used to cross the occlusion in the superficial femoral and popliteal arteries with multiple angiograms performed during the crossing of the occlusion. The angled glide catheter was advanced into the popliteal artery and a selective popliteal artery angiogram was performed confirming intraluminal positioning after crossing the occluded superficial femoral and popliteal arteries. After the occlusion was crossed angioplasty of the common femoral, superficial femoral, and popliteal arteries were performed with a 6 x 100 balloon. The completion angiogram showed resolution of the stenosis and occlusion with good flow into the right lower extremity. The left common femoral destination sheath was exchanged for a short 6 Panamanian sheath over a Willoughby wire. The left common femoral arteriotomy was closed using a 5 Panamanian Mynx closure devices with an additional 10 minutes of adjunctive pressure applied for hemostasis. Patient tolerated the procedure well. All instrument, sponge and needle counts were correct at the end of the case. Dr. Hebert was present for and directed the entire case. Patient was transferred to the recovery area awake, alert and in stable condition. RADIOLOGIC SUPERVISION AND INTERPRETATION: The aortogram showed the suprarenal aorta to be widely patent with good filling of the intercostal arteries. The superior mesenteric and celiac artery were widely patent. The renal arteries were patent bilaterally. The infrarenal aorta showed some atherosclerotic plaquing but was patent. The inferior mesenteric artery was not visualized. The iliofemoral angiogram showed good filling of the lumbar vessels in the infrarenal aorta. The infrarenal aorta showed some atherosclerotic plaquing but was patent. The inferior mesenteric artery was not visualized. The left common iliac, external iliac and internal iliac arteries were widely patent. The left common femoral artery, proximal superficial femoral artery and proximal profunda femoris artery were patent There was no visualization of the left lower extremity below the puncture site. The right common iliac, external iliac and internal iliac arteries were patent. There was mild calcific atherosclerotic arterial occlusive disease in the common femoral artery just above the bi furcation of the superficial femoral and profunda femoris arteries. The selective right common femoral artery catheter placement and angiogram showed the common femoral artery to have mild to moderate atherosclerotic arterial occlusive disease just above the junction of the superficial femoral and profunda femoris arteries. The profunda femoris artery was patent. The superficial femoral artery was patent to the junction of the popliteal artery where there was a short segment occlusion. There was diffuse atherosclerotic arterial occlusive disease along the course of the superficial femoral artery. The angled glide catheter was advanced into the superficial femoral artery selectively and angiogram was performed and then the catheter was used to cross the occlusion in the superficial femoral and popliteal arteries. The angled glide catheter was advanced into the popliteal artery and a selective popliteal artery angiogram was performed confirming intraluminal positioning and showing diffuse moderate atherosclerotic arterial occlusive disease in the above and below knee popliteal artery. The runoff in the below-knee region was via the peroneal artery which was patent into the distal calf with reconstitution of the anterior tibial artery and posterior tibial artery via collaterals from the peroneal artery. The posterior tibial artery occluded shortly after its takeoff and was reconstituted at the ankle via collaterals from the peroneal artery. The anterior tibial artery occluded shortly after its takeoff and reconstituted ankle via collaterals off the peroneal artery. The tibial peroneal trunk showed an approximate 50% stenosis in its midportion. The posterior tibial artery was small in the arch of the foot. The dorsalis pedis artery was patent into the dorsum of the foot and an occluded in the dorsum of the foot. Once intraluminal positioning was confirmed within the right popliteal artery below the superficial femoral artery and popliteal artery occlusion the right popliteal artery was angioplastied with the 6 x 100 mm balloon. The right superficial femoral artery was angioplastied with 6 x 100 mm balloon. The right common femoral artery was angioplastied with the 6 x 100 mm balloon. A completion angiogram showed resolution of the stenoses with good flow through the common femoral artery, superficial femoral artery and popliteal arteries with preserved tibial vessel runoff. The arteriotomy in the left femoral artery was closed using a Mynx closure device. Colin Hebert MD Oct 29, 2018 16:18
== END | disposition home or self-care (01) ==
LOC: M IRPRO 08:15
PROVIDERS: ATTEND Surgery Vascular Surgery
DX: I70.201 Unspecified atherosclerosis of native arteries of extremities, right leg (principal)
CPT/HCPCS: 37224; 75716; 75774; 80048; 85027; C1725; C1769; C1887; C1894; J1200; J2250; J2720; J3010; Q9967

== ENCOUNTER → 2018-12-02 | Outpatient (CLI) | payer OTHER ==
[~2018-12-02] MED LIST changes: -ACETAMINOPHEN 325 MG TAB As Ordered ONE; -ISOVUE-370 76% 125ML VIAL (Q9967 PER ML) As Ordered ONE
[2018-12-02 09:01] LABS: HEMATOCRIT 31.3 % (36.0-47.0); HEMOGLOBIN 9.9 g/dl (12.0-15.5); MEAN CORPUSCULAR HGB CONC 31.6 g/dl (32.0-36.5); PLATELET COUNT, AUTOMATED 475 10^3/uL (150-450); RED BLOOD COUNT 4.12 10^6/uL (4.00-5.40); WHITE BLOOD COUNT 12.7 10^3/uL (4.0-10.0)
[2018-12-02 09:28] LABS: CALCIUM LEVEL 9.1 MG/DL (8.8-10.2); CREATININE FOR GFR 2.83 MG/DL (0.55-1.30); GLOMERULAR FILTRATION RATE 18.1 (>45); POTASSIUM SERUM 4.7 MEQ/L (3.5-5.1)
--- NOTE | 2018-12-04 12:34 | REPIR ---
DATE OF PROCEDURE: 12/02/2018 ATTENDING SURGEON: Dr. Taryn Hebert HANDY MAN: PREOPERATIVE DIAGNOSES: Left lower extremity nonhealing ulcers and pain. POSTOPERATIVE DIAGNOSES: Left lower extremity nonhealing ulcers and pain. PROCEDURE: Left lower extremity angiogram. INDICATION: The patient is a female with end-stage renal disease approaching and diabetes mellitus who has nonhealing ulcers on both feet. The patient will undergo a left lower extremity angiogram with possible angioplasty, stent, and/or atherectomy. Risks, benefits, and alternative treatment options were discussed with the patient. ANESTHESIA: Was local with sedation. ESTIMATED BLOOD LOSS: Minimal. INTRAVENOUS (IV) FLUID: 100 mL. COMPLICATIONS: None. DRAINS: None. SPECIMENS: None. IMPLANTS: Right femoral Mynx closure device. DESCRIPTION OF PROCEDURE: The patient was taken to the angiography suite, placed supine on the angiography room table, and then prepped and draped in a standard surgical fashion. The right common femoral artery was cannulated with a micropuncture needle. A catheter was placed in the left common femoral artery, and an angiogram was performed showing complete occlusion of the left superficial femoral artery at its origin with reconstitution in the above-knee popliteal artery. Catheters and wires were removed. The sheath was removed, and a 5-Frisian Mynx closure device was used close the arteriotomy in the right common femoral artery with an additional 10 minutes of adjunctive pressure applied for hemostasis. Dressings were then applied. The patient tolerated the procedure well. All instrument, sponge, and needle counts were correct at the end of the case. There were no complications. Dr. Hebert was present for and directed the entire case. The patient was transferred to the holding area and subsequently discharged in stable condition.
== END | disposition home or self-care (01) ==
LOC: M IRPRO 08:12
PROVIDERS: ATTEND Surgery Vascular Surgery
DX: E11.22 Type 2 diabetes mellitus with diabetic chronic kidney disease (principal); N18.9 Chronic kidney disease, unspecified; I70.92 Chronic total occlusion of artery of the extremities
CPT/HCPCS: 36246; 75710; 80048; 85027; C1760; C1769; C1887; C1894; G0269; J1200; J2250; J3010; Q9967

== ENCOUNTER → 2019-01-10 | Outpatient (REF) | payer OTHER ==
[~2019-01-10] MED LIST changes: -BUPIVACAINE HCL 0.5% 10 ML VIAL As Ordered ONE; -HEPARIN 1,000 UNITS/ML 10ML VIAL (FOR RADIOLOGY& DIALYSIS ONLY) As Ordered ONE; -ISOVUE-300 61% 100ML VIAL (Q9967) As Ordered ONE; -LIDOCAINE 2% MDV 20 ML VIAL As Ordered ONE; -MIDAZOLAM INJ 2 MG/2 ML VIAL (J2250) As Ordered ONE; -PROTAMINE SULF INJ 50 MG/5 ML VIAL (J2720) As Ordered ONE; -diphenhydrAMINE INJ 50MG/ML VIAL (J1200) As Ordered ONE; -fentaNYL 100 MCG/2 ML INJECTION (J3010) As Ordered ONE
== END ==
LOC: M LABDRAWP 14:40
PROVIDERS: ATTEND Physician Assistant Medical
DX: G40.909 Epilepsy, unspecified, not intractable, without status epilepticus (principal)

== ENCOUNTER → 2019-01-10 | Outpatient (REF) | payer OTHER ==
[2019-01-10 16:55] LABS: CHOLESTEROL LEVEL 188 MG/DL (<200); CHOLESTEROL RISK RATIO 5.222 (<5); HDL CHOLESTEROL 36 MG/DL (>40); NON-HDL-C 152 MG/DL; TRIGLYCERIDES LEVEL 700 MG/DL (<150)
[2019-01-10 16:56] LABS: HEMOGLOBIN A1c 10.2 %
== END ==
LOC: M SFHCPLAZ 14:26
PROVIDERS: ATTEND Family Medicine
DX: E11.59 Type 2 diabetes mellitus with other circulatory complications (principal); E78.00 Pure hypercholesterolemia, unspecified

== ENCOUNTER → 2019-02-03 | Outpatient (CLI) | payer OTHER ==
[~2019-02-03] MED LIST changes: -OMEP20CA3 PO; +OMEP20CA4 PO
--- NOTE | 2019-02-03 14:51 | REP ---
MRI BRAIN WITHOUT CONTRAST: HISTORY: Aneurysm. Carotid stenosis. Pontine stroke. No comparison brain imaging. TECHNIQUE: Axial and sagittal imaging planes are utilized for T1- and T2-weighted scans. Sequences include spin-echo, fast spin echo, FLAIR, and diffusion weighted sequences. A no bony calvarial lesion is seen. There is moderate mucosal thickening affecting the left maxillary sinus. Left frontal sinus is also affected. No intraorbital abnormality. Craniocervical junction and upper cervical cord are unremarkable. On diffusion weighted scans, there is no evidence of restricted diffusion to suggest acute ischemia. There is diffuse moderate cerebral atrophy. There is a somewhat linear area of low T1- and increased T2-signal intensity in the right ventral antoine which may reflect an old infarction. There is mild periventricular T2-hyperintensity consistent with small vessel changes. An old left frontal lobe periventricular lacunar infarction is seen. There is no evidence of intracranial hemorrhage. No mass, extra-axial fluid collection, or midline shift is seen. IMPRESSION: Diffuse atrophy, small vessel changes, and old lacunar infarcts in the left frontal lobe periventricular white matter and in the right ventral antoine. No acute ischemia seen. Left maxillary and left frontal sinus mucosal changes. Electronically Signed by Nazario Hernandez MD 02/03/2019 05:16 P
--- NOTE | 2019-02-03 14:53 | REP ---
MR angiography the brain without contrast: History: Aneurysm. Severe bilateral carotid stenosis. Technique: 3-D [id number] MR angiography of the brain is acquired in the usual fashion and maximal intensity projection images were generated in rotational format about the vertical and horizontal axes. In addition, source axial T1-weighted images are viewed in cine mode. MR angiographic findings: The distal vertebral arteries are patent and co-dominant. Basilar artery is a little tortuous but widely patent. The posterior cerebral and superior cerebellar vessels are normal and symmetric. The distal internal carotid arteries show bilateral atherosclerotic irregularity in the cavernous segments. Mild somewhat diffuse narrowing is seen bilaterally. . Anterior and middle cerebral arteries appear intact. There is no visible carter aneurysm or arteriovenous malformation. Impression: Atherosclerotic irregularity and diffuse narrowing of the cavernous segments of the internal carotid arteries bilaterally. Otherwise unremarkable MR angiography the brain. Electronically Signed by Nazario Hernandez MD 02/03/2019 02:44 P
== END ==
LOC: M RAD 11:58
PROVIDERS: ATTEND Neurological Surgery
DX: I63.9 Cerebral infarction, unspecified (principal)

== ENCOUNTER → 2019-03-03 | Outpatient (REF) | payer OTHER ==
[2019-03-03 14:47] LABS: PERCENT SATURATION 20.8 % (13.2-45.0)
== END ==
LOC: M LAB REF 13:06
PROVIDERS: ATTEND Internal Medicine Nephrology
DX: N18.4 Chronic kidney disease, stage 4 (severe) (principal); E11.22 Type 2 diabetes mellitus with diabetic chronic kidney disease; D63.1 Anemia in chronic kidney disease

== ENCOUNTER → 2019-04-03 | Outpatient (CLI) | payer OTHER ==
[~2019-04-03] MED LIST changes: +BUPIVACAINE HCL 0.5% 10 ML VIAL As Ordered ONE; +HEPARIN 1,000 UNITS/ML 10ML VIAL (FOR RADIOLOGY& DIALYSIS ONLY) As Ordered ONE; +ISOVUE-300 61% 50ML VIAL (Q9967) As Ordered ONE; +LIDOCAINE 1% MDV 20ML VIAL As Ordered ONE; +LIDOCAINE 2% MDV 20 ML VIAL As Ordered ONE; +MIDAZOLAM INJ 2 MG/2 ML VIAL (J2250) As Ordered ONE; +diphenhydrAMINE INJ 50MG/ML VIAL (J1200) As Ordered ONE; +fentaNYL 100 MCG/2 ML INJECTION (J3010) As Ordered ONE
--- NOTE | 2019-04-03 09:17 | IRHP ---
[facility] IR Pre-Procedure H & P General Date of Service: Apr 03, 2019 Procedure: Same Day Surgery Interval History and Physical I have seen the patient and reviewed last H & P performed within 30 days. There is no significant interval change. Patient is stable for procedure. History of Present Illness Chief Complaint The patient is a 58-year-old female admitted with a reason for visit of PAD. PRE-PROCEDURE DIAGNOSIS: PAD HEART: normal rate. LUNGS: normal breathing at rest. ASA Classification ASA Classification: III-Severe systemic dis. Mallampati Score: II NPO: Yes Problems with prior sedation: No Obstructive Sleep Apnea: No Plan moderate sedation Allergies Coded Allergies: No Known Allergies (Unverified , 12/13/16) Home Medications Scheduled Acetaminophen (Mapap), 650 MG PO Q4HP, (Reported) Allopurinol (Allopurinol), 100 MG PO DAILY, (Reported) Aspirin (Aspirin), 81 DAILY, (Reported) B1/B2/B3/B5/B6 (Vitamin B Complex), 1 TAB PO DAILY, (Reported) Chlorthalidone (Chlorthalidone), 25 MG PO DAILY, (Reported) Clopidogrel Bisulfate (Plavix), 75 MG PO DAILY, (Reported) Epoetin Rasheed (Procrit), 10,000 UNIT IJ Q4WKS, (Reported) Ferric Citrate (Auryxia), 210 MG PO BID, (Reported) Furosemide (Furosemide), 20 MG PO DAILY, (Reported) Gabapentin (Gabapentin), 300 DAILY, (Reported) Glipizide (Glipizide ER), 5 MG PO TID, (Reported) Insulin Glargine,Hum.rec.anlog (Lantus Solostar), 30 UNITS SC QAM, (Reported) Levetiracetam (Keppra), 500 MG PO BID, (Reported) Lorazepam (Lorazepam), 6 MG PO QHS, (Reported) Metoprolol Tartrate (Metoprolol Tartrate), 50 MG PO BID, (Reported) Nifedipine (Nifedipine ER), 90 DAILY, (Reported) Omeprazole (Omeprazole), 20 MG PO DAILY, (Reported) Simvastatin (Simvastatin), 20 MG PO QHS, (Reported) Vitamin D (Vitamin D), 1,000 UNIT PO BID, (Reported) Discontinued Medications Losartan Potassium (Losartan Potassium), 25 MG PO DAILY, (Reported) Discontinued Reason: Pt states not taking YOHANNES,DAR MD Apr 03, 2019 09:17
--- NOTE | 2019-04-03 11:51 | POST-OPPD ---
Postoperative Procedure Note Date Of Procedure: Apr 03, 2019 Time Of Procedure: 11:49 PREOPERATIVE DIAGNOSIS: pad POSTOPERATIVE DIAGNOSIS: pad FINDINGS: flush occlusion of SFA and distal reconstitution from hypertrophied profunda at popliteal artery with 2 vessel run off to foot PROCEDURE: left leg angiogram SURGEON: felicia ANESTHESIA: moderate sedation ESTIMATED BLOOD LOSS: < 15 ml COMPLICATIONS: none POSTOPERATIVE CONDITION: stable DAR SHEFFIELD MD Apr 03, 2019 11:51
--- NOTE | 2019-04-03 14:43 | REP ---
IR left leg angiogram. IR ultrasound left groin. IR left leg runoff. IR moderate sedation. Clinical Information: Left leg pain at rest. Non healing left extremity wounds. Physician: Dr Fitch.Procedure: The patient was advised of the benefits, risks, and alternatives of the procedure and informed consent was obtained.A time out was performed with verification of the patient's name, MRN, site of procedure, and type of procedure to be performed. The patient was positioned in the supine position on the angiographic table. The site was prepped and draped in the usual sterile fashion.Moderate sedation was performed by the physician including the presence of an independent trained observer that assisted in monitoring the patient's level of consciousness and physiological status. Following the administration of Fentanyl and Versed, the physician spent 60 minutes of continuous cevg-eg-aaye time with the patient. A enterostomal nurse radiograph reveals no gross abnormality. Ultrasound of the left groin demonstrates calcified but patent left femoral artery. The left femoral artery was accessed antegrade, under ultrasound guidance using a micropuncture kit. The needle was removed over the wire and sheath was advanced into the artery. A pullback arteriogram was performed which demonstrates patent hypertrophic profunda femoris and branches supplying the thigh. The micro sheath was retracted further back and repeat arteriogram was performed which demonstrates good flow through the hypertrophic profunda femoris but no reflux into the superficial femoral artery. The micro sheath was retracted further back and repeat arteriogram was performed which shows flush occlusion of the superficial femoral artery. An arteriogram of the distal thigh and proximal calf was performed and this demonstrates slow flow through many collaterals within the distal thigh and reconstitution of a good sized popliteal artery above the level of the knee joint. Patent popliteal artery, patent proximal anterior tibial and tibioperoneal trunk. A run off arteriogram was performed to the foot and this demonstrates a good sized anterior tibial artery completely patent all the way down to the foot. Patent peroneal and posterior tibial artery giving a three-vessel runoff to the foot. The sheath was removed, pressure held and hemostasis achieved. A sterile dressing was applied to the site. Patient tolerated the procedure well and was transferred to PRU in stable condition. Complications: None. Estimated blood loss: Less than 5 ml. Impression: 1. Left leg angiogram demonstrates flush occlusion of the superficial femoral artery at its origin and through out its entirety. 2. Hypertrophic profunda femoris supplying the proximal thigh but slow flow through small collaterals in the distal thigh. 3. Distal reconstitution of the popliteal artery above the knee joint with good size popliteal artery, patent anterior tibial, peroneal and posterior tibial artery. Three-vessel runoff to the foot. 4. The patient is not a candidate for endovascular recanalization of this complete and flush SFA occlusion. However given good proximal profunda branches and the distal runoff may be a candidate for surgical options. I will refer this patient for evaluation for surgical bypass options. Thank you for this referral. Electronically Signed by Ginette Fitch MD 04/03/2019 02:42 P
[2019-04-03 17:40] VITALS: BP 147/74
== END ==
LOC: M IRPRO 08:42
PROVIDERS: ATTEND Radiology Diagnostic Radiology
DX: I73.9 Peripheral vascular disease, unspecified (principal)
CPT/HCPCS: 36140; 75710; 99152; 99153; C1760; C1769; C1887; C1894; J1200; J2250; J3010; Q9967

== ENCOUNTER 2019-04-26 13:34 | Emergency (ER) | payer OTHER ==
[~2019-04-26] VITALS: Ht 170.2 cm; Wt 65.0 kg
[~2019-04-26 13:34] MED LIST changes: -BUPIVACAINE HCL 0.5% 10 ML VIAL As Ordered ONE; -HEPARIN 1,000 UNITS/ML 10ML VIAL (FOR RADIOLOGY& DIALYSIS ONLY) As Ordered ONE; -ISOVUE-300 61% 50ML VIAL (Q9967) As Ordered ONE; -LIDOCAINE 1% MDV 20ML VIAL As Ordered ONE; -LIDOCAINE 2% MDV 20 ML VIAL As Ordered ONE; -MIDAZOLAM INJ 2 MG/2 ML VIAL (J2250) As Ordered ONE; -diphenhydrAMINE INJ 50MG/ML VIAL (J1200) As Ordered ONE; -fentaNYL 100 MCG/2 ML INJECTION (J3010) As Ordered ONE
[2019-04-26] MEDS ORDERED: OSEN25TA PO (14:29)
[2019-04-26] MEDS ORDERED: D-101000 PO (14:29)
[2019-04-26] MEDS ORDERED: ATIV2TAB PO (14:29)
[2019-04-26] MEDS ORDERED: AURY1TAB PO (14:29)
[2019-04-26] MEDS ORDERED: SM A10CA PO (14:29)
[2019-04-26] MEDS ORDERED: FERR325T18 PO (14:29)
[2019-04-26] MEDS ORDERED: FURO40TA2 PO (14:29)
[2019-04-26] MEDS ORDERED: BASA100I SQ (14:29)
[2019-04-26] MEDS ORDERED: MELA5CAP2 PO (14:29)
[2019-04-26] MEDS ORDERED: CALC500T60 PO (14:29)
[2019-04-26] MEDS ORDERED: TIZA2TA PO (14:29)
[2019-04-26] MEDS ORDERED: GEMF600T5 PO (14:29)
[2019-04-26] MEDS ORDERED: LOSA25TA14 PO (14:29)
[2019-04-26] MEDS ORDERED: FENO43CA PO (14:29)
[2019-04-26 15:54] LABS: BASO % 0.5 % (0.0-1.0); EOS # 0.4 10^3/uL (0.0-0.5); HEMATOCRIT 31.3 % (36.0-47.0); HEMOGLOBIN 9.8 g/dl (12.0-15.5); LYMPH # 1.8 10^3/uL (1.5-5.0); LYMPH % 22.7 % (24.0-44.0); MEAN CORPUSCULAR HEMOGLOBIN 24.9 pg (27.0-33.0); MEAN CORPUSCULAR HGB CONC 31.3 g/dl (32.0-36.5); MEAN CORPUSCULAR VOLUME 79.4 fl (80.0-96.0); MONO # 0.4 10^3/uL (0.0-0.8); MONO % 5.2 % (0.0-5.0); NEUTROPHILS # 5.2 10^3/uL (1.5-8.5); NEUTROPHILS % 66.3 % (36.0-66.0); PLATELET COUNT, AUTOMATED 407 10^3/uL (150-450); RED BLOOD COUNT 3.94 10^6/uL (4.00-5.40); WHITE BLOOD COUNT 7.9 10^3/uL (4.0-10.0)
[2019-04-26] MEDS ORDERED: MACR100C43 PO (16:31)
[2019-04-26 16:45] VITALS: BP 182/80
== END 2019-04-26 16:56 | disposition home or self-care (01) ==
LOC: M ED 13:34
DX: N30.90 Cystitis, unspecified without hematuria (principal); N18.4 Chronic kidney disease, stage 4 (severe); E11.65 Type 2 diabetes mellitus with hyperglycemia; D64.9 Anemia, unspecified; I12.9 Hypertensive chronic kidney disease with stage 1 through stage 4 chronic kidney disease, or unspecified chronic kidney disease; G40.909 Epilepsy, unspecified, not intractable, without status epilepticus; E78.5 Hyperlipidemia, unspecified; K21.9 Gastro-esophageal reflux disease without esophagitis; F33.9 Major depressive disorder, recurrent, unspecified; F41.9 Anxiety disorder, unspecified; Z79.899 Other long term (current) drug therapy; Z79.82 Long term (current) use of aspirin; Z79.4 Long term (current) use of insulin; Z79.01 Long term (current) use of anticoagulants

== ENCOUNTER → 2019-05-09 | Outpatient (REF) | payer OTHER ==
[~2019-05-09] MED LIST changes: +ATIV2TAB PO; +BASA100I SQ; +CALC500T60 PO; +D-101000 PO; +FENO43CA PO; +FERR325T18 PO; +GEMF600T5 PO; +MACR100C43 PO; +MELA5CAP2 PO; +OSEN25TA PO; +SM A10CA PO; +TIZA2TA PO
[2019-05-09 17:24] LABS: BASO # 0.1 10^3/uL (0.0-0.2); BASO % 0.7 % (0.0-1.0); EOS # 0.3 10^3/uL (0.0-0.5); EOS % 2.7 % (0.0-3.0); HEMATOCRIT 31.5 % (36.0-47.0); HEMOGLOBIN 9.7 g/dl (12.0-15.5); LYMPH # 2.5 10^3/uL (1.5-5.0); MEAN CORPUSCULAR HEMOGLOBIN 24.1 pg (27.0-33.0); MEAN CORPUSCULAR HGB CONC 30.8 g/dl (32.0-36.5); MEAN CORPUSCULAR VOLUME 78.2 fl (80.0-96.0); MONO # 0.5 10^3/uL (0.0-0.8); MONO % 5.4 % (0.0-5.0); NEUTROPHILS # 6.6 10^3/uL (1.5-8.5); NEUTROPHILS % 65.8 % (36.0-66.0); PLATELET COUNT, AUTOMATED 528 10^3/uL (150-450); RED BLOOD COUNT 4.03 10^6/uL (4.00-5.40); WHITE BLOOD COUNT 10.1 10^3/uL (4.0-10.0)
[2019-05-09 17:29] LABS: ALBUMIN 3.3 GM/DL (3.2-5.2); ALT/SGPT 12 U/L (12-78); BILIRUBIN,TOTAL 0.2 MG/DL (0.2-1.0); BLOOD UREA NITROGEN 78 MG/DL (7-18); CALCIUM LEVEL 9.5 MG/DL (8.8-10.2); CARBON DIOXIDE LEVEL 26 MEQ/L (21-32); CHLORIDE LEVEL 100 MEQ/L (98-107); CHOLESTEROL LEVEL 192 MG/DL (<200); CREATININE FOR GFR 2.97 MG/DL (0.55-1.30); FERRITIN 147 NG/ML (8-252); GLOMERULAR FILTRATION RATE 17.1 (>45); GLUCOSE, FASTING 284 MG/DL (70-100); HDL CHOLESTEROL 32 MG/DL (>40); IRON (FE) 33 UG/DL (50-170); MAGNESIUM LEVEL 2.2 MG/DL (1.8-2.4); NON-HDL-C 160 MG/DL; PERCENT SATURATION 13.5 % (13.2-45.0); PHOSPHORUS LEVEL 4.1 MG/DL (2.5-4.9); POTASSIUM SERUM 4.2 MEQ/L (3.5-5.1); SODIUM LEVEL 136 MEQ/L (136-145); TOTAL IRON BINDING CAPACITY 245 UG/DL (250-450); TOTAL PROTEIN 8.5 GM/DL (6.4-8.2); TRIGLYCERIDES LEVEL 485 MG/DL (<150)
[2019-05-09 17:59] LABS: PTH INTACT 186.8 PG/ML (18.5-88.0); TOTAL 25(OH) VITAMIN D 21.6 NG/ML (30.0-100.0)
[2019-05-09 18:11] LABS: APPEARANCE, URINE CLOUDY (CLEAR); BACTERIA, URINE AUTO 3+ (NEGATIVE); BILIRUBIN, URINE AUTO NEGATIVE (NEGATIVE); BLOOD, URINE BLOOD 1+ (NEGATIVE); COLOR, URINE YELLOW (YELLOW); GLUCOSE, URINE (UA) AUTO 3+ mg/dL (NEGATIVE); KETONE, URINE AUTO NEGATIVE (NEGATIVE); LEUKOCYTE ESTERASE, URINE AUTO 3+ (NEGATIVE); MUCUS, URINE SMALL (NEGATIVE); NITRITE, URINE AUTO POSITIVE (NEGATIVE); PROTEIN, URINE AUTO 2+ mg/dL (NEGATIVE); RBC, URINE AUTO 2 /HPF (0-3); SQUAMOUS EPITHELIAL CELL UR AU 1 /HPF (0-6); UROBILINOGEN, URINE AUTO 0.2 mg/dL (0.0-2.0); WBC, URINE AUTO 19 /HPF (0-3)
[2019-05-09 18:14] LABS: CREATININE, URINE 59.4 MG/DL; MAU/CREAT RATIO 1851.8 MCG/MG (0.0-30.0)
[2019-05-14 10:35] LABS: LEVETIRACETAM (KEPPRA) 26.5 ug/mL (10.0-40.0); VITAMIN D 1,25 DIHYDROXY 12.7 pg/mL (19.9-79.3)
== END ==
LOC: M SFHCPLAZ 14:49
DX: E78.1 Pure hyperglyceridemia (principal); E11.59 Type 2 diabetes mellitus with other circulatory complications; D50.9 Iron deficiency anemia, unspecified; R56.9 Unspecified convulsions; N18.4 Chronic kidney disease, stage 4 (severe); N30.00 Acute cystitis without hematuria; E61.1 Iron deficiency

== ENCOUNTER → 2019-05-28 | Outpatient (CLI) | payer OTHER ==
[~2019-05-28] MED LIST changes: +ISOVUE-300 61% 50ML VIAL (Q9967) As Ordered ONE; +LIDOCAINE 1% MDV 20ML VIAL As Ordered ONE; +MIDAZOLAM INJ 2 MG/2 ML VIAL (J2250) As Ordered ONE; +fentaNYL 100 MCG/2 ML INJECTION (J3010) As Ordered ONE
--- NOTE | 2019-05-28 12:51 | ROOPDOC ---
[facility] Report Of Operation Report of Operation DATE OF PROCEDURE: 05/28/19 PREPROCEDURE DIAGNOSES: Stage IV renal insufficiency with poor maturation brachiocephalic fistula left upper extremity POSTPROCEDURE DIAGNOSES: Same PROCEDURE: 1. Ultrasound-guided access left cephalic vein 2. Fistulogram and central venogram 3. Angioplasty cephalic vein into subclavian vein with 6 x 200 [place] balloon 4. Completion venograms SURGEON: Kayla Pereyra MD ANESTHESIA: Local anesthesia 4 cc lidocaine. Moderate intravenous conscious sedation was supervised by Dr. Pereyra. The patient was independently monitored by registered nurse decided to the Department of radiology using automated blood pressure, EKG, pulse oximetry. The detailed sedation record is permanently [facility] information system. The following is a brief sedation record: Start time 12:05,. Time 12:34, Versed 1 mg IV, fentanyl 50 g IV. INDICATION FOR PROCEDURE: This is a very pleasant 58-year-old patient with stage IV renal insufficiency progressing towards date 5 who had a brachiocephalic fistula placed with Dr. Hebert several months ago. The fistula is failed to mature. I reviewed his operative note and at the time of fistula creation, the patient did not have a vein mapping. It is not clear if the vein was of a suitable size for fistula creation in the first place, however if there is any way that we can help it to mature we certainly would like to salvage. Her other option is an AV graft, which is not ideal compared to the fistula. Risks benefits and alternatives to a fistulogram and central venogram and intervention were discussed with the patient and her family. I did discuss with them that due to the diminutive nature of her pain she would likely need multiple procedures if maturation was to be possible. They understand this is the case. After lengthy discussion informed consent was obtained. INTERPRETATION: 1. The cephalic vein proximal to the AV anastomosis is extremely small in size on retrograde fistulogram through the anastomosis, partially due to spasm from attempt to access near the AV anastomosis. This will require retrograde access angioplasty at her next procedure to try to improve inflow. I did not want to try to angioplasty the vein in this area while it was in a tight spasm because that puts the fistula at risk for failure. 2. The cephalic vein distal to this is slightly larger in size and was fairly easy to access. It appeared to be about 3 mm diameter through the majority of its length with the few areas of 30-40% stenosis. We were able to dilate this up to a 6 mm with a 6 x 200 Dav[place] balloon. REPORT OF OPERATION: Patient was brought to the angiographic suite in stable condition. Her left upper extremity is prepped and draped in a sterile fashion. A timeout was performed. Sedation was administered without competition. Local anesthesia was a gas dispenser to the skin and subcutaneous tissue over the cephalic vein near the AV anastomosis and we attempted to access this with an ultrasound, but the vein was very small, mobile within the soft tissue and over centimeter deep, and upon access attempt, the vessel spasmed and we were not able to gain access. We held pressure for 1 minute and then obtain a more proximal access towards the biceps in a slightly larger aspect of the vein in a similar fashion. Microwire was passed through this under fluoroscopic guidance and the needle was removed and a micro-sheath was placed. Through the sheath we performed a quick fistulogram to see if the fistula was viable. There is in-line flow through the cephalic vein into the subclavian vein and central systems. This was encouraging that we may still have a chance to mature this fistula. It would be ideal if we could give her a functional autologous access. Glidewire was passed through this access in the sheath was exchanged for 6 Tunisian sheath which was flushed with saline. Following this, we angioplasty the length of the cephalic vein into the subclavian vein with a 6 x 200 Dav[place] balloon. 2 three-minute inflations were performed at low atmospheres and completion venograms showed improved outflow through the fistula. A retrograde injection showed there was still spasm in the proximal cephalic vein near the AV anastomosis, and we will likely need to angioplasty this with a small balloon to improve inflow from a retrograde access at her next visit. We flushed with copious amounts of saline, and a Prolene suture was placed at the sheath site and the sheath was removed. Sterile dressings were applied. The patient was taken to recovery in stable condition. ESTIMATED BLOOD LOSS: Approximately 5 mL. COMPLICATIONS: None. PLAN: We will see the patient back to check her fistula in a week. We'd like to bring her back in 1-2 weeks for another angioplasty to see if we can improve her outflow, we like to get her up to a 7-8 mm balloon at her next visit. As far as the proximal inflow, we will likely have to start with a 4 or 5 mm balloon depending on spasm and this will be angioplasty from a retrograde access. Hopefully this will improve inflow and help with maturation of the fistula. There is still concern that the fistula will not mature due to diminutive size of the vein, but I think it is worth trying to salvage. KAYLA PEREYRA MD May 28, 2019 12:51
[2019-05-28 13:13] VITALS: BP 122/56
== END ==
LOC: M IRPRO 09:22
PROVIDERS: ATTEND Surgery Vascular Surgery
DX: T82.898A Other specified complication of vascular prosthetic devices, implants and grafts, initial encounter (principal); N18.4 Chronic kidney disease, stage 4 (severe); X58.XXXA Exposure to other specified factors, initial encounter; Y93.9 Activity, unspecified; Y92.9 Unspecified place or not applicable; Y99.9 Unspecified external cause status
CPT/HCPCS: 36902; 99152; 99153; C1725; C1769; C1894; J2250; J3010; Q9967

== ENCOUNTER → 2019-07-03 | Outpatient (REF) | payer OTHER ==
[~2019-07-03] MED LIST changes: -ISOVUE-300 61% 50ML VIAL (Q9967) As Ordered ONE; -LIDOCAINE 1% MDV 20ML VIAL As Ordered ONE; -MIDAZOLAM INJ 2 MG/2 ML VIAL (J2250) As Ordered ONE; -SIMV20TA2 PO; +SIMV20TA22 PO; -fentaNYL 100 MCG/2 ML INJECTION (J3010) As Ordered ONE
[2019-07-03 18:25] LABS: TOTAL PROTEIN 8.2 GM/DL (6.4-8.2)
[2019-07-03 18:28] LABS: TOTAL PROTEIN,RANDOM URINE 467.6 MG/DL (0.0-12.0); URINE TOTAL PROTEIN 467.6 MG/DL (0-12)
[2019-07-04 10:31] LABS: HEPATITIS C VIRUS ABY INDEX 0.1 INDEX (<0.8)
[2019-07-04 13:09] LABS: ALBUMIN 4.12 GM/DL (3.29-5.55); ALBUMIN % 50.3 % (55.8-66.1); ALPHA-1-GLOBULIN % 4.8 % (2.9-4.9); ALPHA-1-GLOBULINS 0.39 GM/DL (0.17-0.41); ALPHA-2-GLOBULINS 1.15 GM/DL (0.42-0.99); BETA-1-GLOBULINS % 4.9 % (4.7-7.2); BETA-2-GLOBULINS 0.58 GM/DL (0.19-0.55); BETA-2-GLOBULINS % 7.1 % (3.2-6.5); GAMMA GLOBULIN % 18.9 % (11.1-18.8); GAMMA GLOBULINS 1.55 GM/DL (0.65-1.58)
== END ==
LOC: M SFHCPLAZ 17:08
PROVIDERS: ATTEND Internal Medicine
DX: Z11.59 Encounter for screening for other viral diseases (principal); E88.09 Other disorders of plasma-protein metabolism, not elsewhere classified

== ENCOUNTER → 2019-08-27 | Outpatient (CLI) | payer OTHER ==
[~2019-08-27] MED LIST changes: +FENO1CAP16 PO; -FENO43CA PO; +LORA2TAB14 PO; -LORA2TAB9 PO; +OMEP1CAP73 PO; -OMEP20CA4 PO
== END ==
LOC: M LAB 16:27
PROVIDERS: ATTEND Physician Assistant Medical
DX: G40.89 Other seizures (principal)

== ENCOUNTER → 2019-09-04 | Outpatient (REF) | payer OTHER ==
[~2019-09-04] MED LIST changes: +EQL50TAB2 PO; +NIFE30TA50 PO; +ROCA0.25 PO; +VITA100054 PO
[2019-09-04 17:51] LABS: HEMATOCRIT 33.3 % (36.0-47.0); HEMOGLOBIN 10.1 g/dl (12.0-15.5); MEAN CORPUSCULAR HEMOGLOBIN 24.5 pg (27.0-33.0); MEAN CORPUSCULAR HGB CONC 30.3 g/dl (32.0-36.5); MEAN CORPUSCULAR VOLUME 80.6 fl (80.0-96.0); PLATELET COUNT, AUTOMATED 513 10^3/uL (150-450); RED BLOOD COUNT 4.13 10^6/uL (4.00-5.40); WHITE BLOOD COUNT 10.2 10^3/uL (4.0-10.0)
[2019-09-04 17:53] LABS: CALCIUM LEVEL 9.4 MG/DL (8.8-10.2); CREATININE FOR GFR 3.56 MG/DL (0.55-1.30); GLOMERULAR FILTRATION RATE 13.9 (>45); POTASSIUM SERUM 4.4 MEQ/L (3.5-5.1)
== END ==
LOC: M SFHCPLAZ 14:38
DX: Z01.818 Encounter for other preprocedural examination (principal)

== ENCOUNTER 2019-09-17 06:50 | Day surgery (SDC) | payer OTHER ==
[~2019-09-17] VITALS: Ht 170.2 cm; Wt 64.4 kg
[~2019-09-17 06:50] MED LIST changes: +D5W/0.2% SODIUM CHLORIDE 1,000 ML IV ONE; +ceFAZolin SOD 2 GM in IV 1 EA IV ONE
[2019-09-17] MEDS ORDERED: GEMF600T5 PO (07:47)
[2019-09-17] MEDS ORDERED: OXYMETAZOLINE NASAL SPRAY (AFRIN) As Ordered ONE (08:42)
[2019-09-17] MEDS ORDERED: HumaLOG INSULIN (NovoLOG) PER UNIT SC STA (08:44)
[2019-09-17] MEDS ORDERED: SUGAMMADEX SODIUM 500 MG/5 ML VIAL (BRIDION) As Ordered ONE (08:45)
[2019-09-17] MEDS ORDERED: CHLORHEXIDINE GLUCONATE 0.12 % 15ML UDC (PERIDEX ORAL RINSE) As Ordered ONE (08:45)
[2019-09-17] MEDS ORDERED: ONDANSETRON 4MG/2ML VIAL (J2405) As Ordered ONE (08:45)
[2019-09-17] MEDS ORDERED: dexameTHASONE 4 MG/ML 1ML VIAL (J1100) As Ordered ONE (08:45)
[2019-09-17] MEDS ORDERED: LIDOCAINE 2% INJ 100 MG/5 ML SDV (FOR ANES.) As Ordered ONE (08:45)
[2019-09-17] MEDS ORDERED: ROCURONIUM BROMIDE 50 MG/5 ML VIAL As Ordered ONE (08:45)
[2019-09-17] MEDS ORDERED: propofoL 200 MG/20 ML VIAL As Ordered ONE (08:45)
[2019-09-17] MEDS ORDERED: MIDAZOLAM INJ 2 MG/2 ML VIAL (J2250) As Ordered ONE (08:46)
[2019-09-17] MEDS ORDERED: LIDOCAINE 2% W/ EPINEPHRINE 1.7 ML DENTAL INJ As Ordered ONE (08:46)
[2019-09-17] MEDS ORDERED: fentaNYL 100 MCG/2 ML INJECTION (J3010) As Ordered ONE (08:47)
[2019-09-17] MEDS ORDERED: NS 1,000 ML IV ONE (09:00)
[2019-09-17] MEDS ORDERED: HumaLOG INSULIN (NovoLOG) PER UNIT SC ONE (09:00)
[2019-09-17] MEDS ORDERED: ONDANSETRON 4MG/2ML VIAL (J2405) IV PRN (11:00)
[2019-09-17] MEDS ORDERED: fentaNYL 100 MCG/2 ML INJECTION (J3010) IV PRN (11:00)
[2019-09-17] MEDS ORDERED: PERCOCET 5MG/325MG TAB PO PRN ×2 (11:00)
[2019-09-17] MEDS ORDERED: LR 1,000 ML IV SCH ×2 (11:00)
[2019-09-17] MEDS ORDERED: METOCLOPRAMIDE INJ 10MG/2ML VIAL (J2765) IV PRN (11:00)
[2019-09-17] MEDS ORDERED: NS 1,000 ML IV SCH (11:15)
[2019-09-17 13:35] VITALS: BP 160/90
--- NOTE | 2019-09-18 09:22 | RO ---
DATE OF PROCEDURE: 09/17/2019 PREPROCEDURE DIAGNOSIS: Grossly decayed and periodontally involved teeth numbers 2, 3, 4, 5, 6, 7, 8, 9, 10, 11, 12, 13, 14, 15, 17, 18, 19, 20, 21, 22, 23, 26, 27, 28, 29, 30, 31, and 32. POSTPROCEDURE DIAGNOSIS: Grossly decayed and periodontally involved teeth numbers 2, 3, 4, 5, 6, 7, 8, 9, 10, 11, 12, 13, 14, 15, 17, 18, 19, 20, 21, 22, 23, 26, 27, 28, 29, 30, 31, and 32. SURGEON: Moustapha Maki DDS BARREL CENTERER: Frieda and the nurse for the case was Phyllis. ANESTHESIA: Provided by Dr. Wyman. FINDINGS: Findings during the procedure were consistent with the preoperative diagnosis. FLUIDS: The patient received approximately 200 mL of lactated Ringers. BLOOD LOSS: Approximately 50 mL. DISPOSITION: The patient was taken to the postanesthesia care unit (PACU) in stable condition and later discharged to home with postoperative instructions and a followup appointment. INDICATIONS FOR THE PROCEDURE: The patient was seen in the private setting. Her case was complicated due to the number of teeth, as well as the patient's comorbidities, including kidney issues, poor mobility and multiple medications for high blood pressure and cardiac involvement. Given the patient's complicated medical history, I recommended that the patient undergo the procedure in the main operating room. We also cleared the patient's surgery with her primary care physician and reviewed all the medications that the patient was on, including stopping her Plavix one week prior. After reviewing the risks, complications, and alternatives with the patient, she elected to undergo the procedure in the main operating room and all the necessary paperwork was completed. DESCRIPTION OF PROCEDURE: The patient was seen in the preoperative holding area and all necessary paperwork was completed. She was taken to operating room #3 where she was placed under general anesthesia via nasoendotracheal intubation with no complications. The tube was then secured in the head wrap by the anesthesia team. The patient then underwent a time-out, all were in agreement. The throat was then suctioned clean and dried and a throat pack was placed. We then proceeded with placement of local anesthetic 2% Lidocaine with 1:100,000 epinephrine in all four quadrants of the mouth. After anesthetizing the patient, a full mucoperiosteal flap was raised in the maxilla and the mandible. We then proceeded with removal of buccal bone and removal of sectioning of the teeth as necessary. Teeth numbers 2, 3, 4, 5, 6, 7, 8, 9, 10, 11, 12, 13, 14, 15, 17, 18, 19, 20, 21, 22, 23, 26, 27, 28, 29, 30, 31, and 32 were surgically removed. After removal, the area was thoroughly curetted and irrigated. We also performed alveoloplasty on the area to ensure that no sharp areas would be found underneath the denture. We then proceeded to close each area with 3-0 chromic gut suture in a running fashion. After completing closure, the throat was suctioned clean and dried and the throat pack was removed. Hemostasis was verified. The patient was then allowed to emerge from general anesthesia and did so without any complications. She was taken to the postanesthesia care unit (PACU) in stable condition and later discharged to home with instructions for postoperative care and followup.
== END 2019-09-17 13:50 | disposition home or self-care (01) ==
LOC: M SDC 06:50
PROVIDERS: ATTEND Dentist
DX: K02.9 Dental caries, unspecified (principal); I10 Essential (primary) hypertension; K21.9 Gastro-esophageal reflux disease without esophagitis; E78.5 Hyperlipidemia, unspecified; E11.9 Type 2 diabetes mellitus without complications; D64.9 Anemia, unspecified; Z79.82 Long term (current) use of aspirin; R07.9 Chest pain, unspecified; Z79.899 Other long term (current) drug therapy
CPT/HCPCS: 41899; 88300; J0690; J1100; J2250; J2405; J3010

== ENCOUNTER → 2019-10-09 | Outpatient (REF) | payer OTHER ==
[~2019-10-09] MED LIST changes: -D5W/0.2% SODIUM CHLORIDE 1,000 ML IV ONE; -ceFAZolin SOD 2 GM in IV 1 EA IV ONE
[2019-10-09 16:05] LABS: PERCENT SATURATION 20.7 % (13.2-45.0)
== END ==
LOC: M LAB REF 13:35
PROVIDERS: ATTEND Nurse Practitioner Family
DX: D50.9 Iron deficiency anemia, unspecified (principal)

== ENCOUNTER → 2019-11-12 | Outpatient (REF) | payer OTHER ==
[2019-11-12 14:06] LABS: PERCENT SATURATION 26.2 % (13.2-45.0)
== END ==
LOC: M LAB REF 13:08
PROVIDERS: ATTEND Nurse Practitioner Family
DX: D50.9 Iron deficiency anemia, unspecified (principal)

== ENCOUNTER → 2019-12-18 | Outpatient (REF) | payer OTHER, MEDICAID ==
[~2019-12-18] MED LIST changes: -MAPA325T2 PO; +MAPA325T8 PO
[2019-12-19 10:54] LABS: HEPATITIS B CORE ANTIBODY IGM NEGATIVE (NEGATIVE); HEPATITIS B SURFACE ANTIBODY NEGATIVE (POSITIVE); HEPATITIS B SURFACE ANTIGEN NEGATIVE (NEGATIVE); HEPATITIS C VIRUS ABY INDEX 0.1 INDEX (<0.8)
== END ==
LOC: M LAB REF 16:39
PROVIDERS: ATTEND Nurse Practitioner Family
DX: N18.5 Chronic kidney disease, stage 5 (principal)

== ENCOUNTER → 2020-01-21 | Outpatient (REF) | payer OTHER, MEDICAID | LOC: M LAB REF 16:36 | PROVIDERS: ATTEND Nurse Practitioner Family | DX: N39.0 Urinary tract infection, site not specified (principal) ==

== ENCOUNTER → 2020-03-30 | Outpatient (REF) | payer OTHER, MEDICAID ==
[2020-03-30 19:32] LABS: HEPATITIS B CORE ANTIBODY IGM NEGATIVE (NEGATIVE); HEPATITIS B SURFACE ANTIBODY NEGATIVE (POSITIVE); HEPATITIS B SURFACE ANTIGEN NEGATIVE (NEGATIVE); HEPATITIS C VIRUS ABY INDEX 0.3 INDEX (<0.8)
== END ==
LOC: M LAB REF 18:04
PROVIDERS: ATTEND Nurse Practitioner Family
DX: N18.5 Chronic kidney disease, stage 5 (principal); N39.0 Urinary tract infection, site not specified

== ENCOUNTER → 2020-04-29 | Outpatient (REF) | payer OTHER, MEDICAID ==
[2020-04-30 10:34] LABS: HEPATITIS B CORE ANTIBODY IGM NEGATIVE (NEGATIVE); HEPATITIS B SURFACE ANTIBODY NEGATIVE (POSITIVE); HEPATITIS B SURFACE ANTIGEN NEGATIVE (NEGATIVE); HEPATITIS C VIRUS ABY INDEX 0.1 INDEX (<0.8)
== END ==
LOC: M LAB REF 16:56
PROVIDERS: ATTEND Nurse Practitioner Family
DX: N18.5 Chronic kidney disease, stage 5 (principal)

== ENCOUNTER → 2020-04-30 | Outpatient (CLI) | payer OTHER ==
[~2020-04-30] MED LIST changes: +LIDOCAINE W/EPINEPHRINE 1% 20ML VIAL As Ordered ONE; +MIDAZOLAM INJ 2MG/2ML VIAL (J2250 PER 1MG) As Ordered ONE; +ceFAZolin 1GM VIAL (J0690 PER 500MG) As Ordered ONE; +fentaNYL 100 MCG/2 ML INJECTION (J3010) As Ordered ONE; +hydrALAZINE 20MG/ML 1ML VIAL (J0360 PER 20MG) As Ordered ONE
--- NOTE | 2020-04-30 13:24 | ROOPDOC ---
[facility] Report Of Operation Report of Operation DATE OF PROCEDURE: 04/30/20 PREPROCEDURE DIAGNOSES: End-stage renal disease on hemodialysis POSTPROCEDURE DIAGNOSES: Same PROCEDURE: 1. Ultrasound-guided access right internal jugular vein 2. Placement of a 23 cm tunneled PermCath right internal jugular vein SURGEON: Kayla Pereyra MD ANESTHESIA: Local anesthesia 17 mL lidocaine with epinephrine. Moderate intravenous conscious sedation was supervised by Dr. Pereyra. The patient was independently monitored by registered nurse under the department of radiology using automated blood pressure, EKG, and pulse oximetry. The detailed sedation record is personally stored in the hospital information system. The following is the brief sedation record: Start time 12:50, stop time 13:09, Versed 1 mg IV, fentanyl 50 g IV, Ancef 1 g IV. INDICATION FOR PROCEDURE: This very pleasant 59-year-old patient with end-stage renal disease ready for dialysis and needs IV access for dialysis. Risks benefits and alternatives to a PermCath placement were explained to the patient and she is agreeable to proceed. Informed consent was obtained. INTERPRETATION: 1. Right IJ PermCath is in good position, no kinks in the catheter, tip freely mobile at the right atrial SVC junction. No pneumothorax is present. Okay to use PermCath for dialysis. REPORT OF OPERATION: The patient was brought into graphic suite in stable condition. Her right neck and chest were prepped and draped in sterile fashion. A timeout was performed. Antibiotics and sedation were administered without complication. Local anesthesia was administered to skin and subcutaneous tissue over the right neck and chest. A microneedle was used to access the right internal jugular vein under ultrasound guidance. A wire was passed through this access under fluoroscopic guidance. The needle was removed and a micro-sheath wa s placed. A J-wire was advanced through this access into the SVC and then the IVC under fluoroscopic guidance. A small incision was made in the right chest distal to the clavicle. A 23 cm PermCath was tunneled from the right chest to the jugular access site in the subcutaneous tissue until the cuff was within the subcutaneous tissue. 2 serial dilations were then performed over the wire using a Seldinger technique, and the peel-away sheath was placed over the wire. The inner cannula and wire were removed. The tips of the catheter were advanced through the peel-away sheath into the central system. Both ports andi back and flushed easily. The catheter was adjusted to make sure there were no kinks in the catheter in the tips were freely mobile at the right atrial SVC junction. Once the catheter was in good position, we then heparin locked the catheter. Jugular access site was irrigated and closed with a deep and superficial dermal Monocryl suture, and Dermabond was placed at the skin. A Prolene sutures were placed at the exit site on the right chest and to additional sutures were placed to secure the catheter to the chest wall. Sterile dressings were applied. The patient was then taken to recovery in stable condition. She tolerated the procedure well. ESTIMATED BLOOD LOSS: Approximately 5 mL. COMPLICATIONS: None. PLAN: Okay to use PermCath for dialysis. Keep head of bed elevated greater than 45 for the rest of the day. Try to avoid laying flat to minimize venous pressure and minimize risk of bleeding and bruising. We appreciate the opportunity to participate in the care of this patient. KAYLA PEREYRA MD Apr 30, 2020 13:24
[2020-04-30 14:45] VITALS: BP 215/97
== END ==
LOC: M IRPRO 11:46
PROVIDERS: ATTEND Surgery Vascular Surgery
DX: N18.6 End stage renal disease (principal); E11.22 Type 2 diabetes mellitus with diabetic chronic kidney disease; I12.0 Hypertensive chronic kidney disease with stage 5 chronic kidney disease or end stage renal disease
CPT/HCPCS: 36558; 99152; 99153; C1750; C1894; J0690; J1644; J2250; J3010

== ENCOUNTER → 2020-10-25 | Outpatient (REF) | payer OTHER ==
[~2020-10-25] MED LIST changes: +GABA-282; -GABA-843; -GLYB5TA PO; +GLYB5TAB6 PO; -LIDOCAINE W/EPINEPHRINE 1% 20ML VIAL As Ordered ONE; -MIDAZOLAM INJ 2MG/2ML VIAL (J2250 PER 1MG) As Ordered ONE; -ceFAZolin 1GM VIAL (J0690 PER 500MG) As Ordered ONE; -fentaNYL 100 MCG/2 ML INJECTION (J3010) As Ordered ONE; -hydrALAZINE 20MG/ML 1ML VIAL (J0360 PER 20MG) As Ordered ONE
[2020-10-25 15:56] LABS: CHOLESTEROL LEVEL 216 MG/DL (<200); CHOLESTEROL RISK RATIO 6.352 (<5); HDL CHOLESTEROL 34 MG/DL (>40); NON-HDL-C 182 MG/DL; TRIGLYCERIDES LEVEL 666 MG/DL (<150)
== END ==
LOC: M SFHCPLAZ 11:57
PROVIDERS: ATTEND Family Medicine
DX: E78.1 Pure hyperglyceridemia (principal)

== ENCOUNTER 2021-01-05 10:57 | Emergency (ER) | payer OTHER ==
[~2021-01-05] VITALS: Ht 167.6 cm; Wt 66.8 kg
[~2021-01-05 10:57] MED LIST changes: -GABA-282; +GABA-282 PO
[2021-01-05 12:24] LABS: BASO # 0.1 10^3/uL (0.0-0.2); BASO % 0.6 % (0.0-1.0); EOS # 0.3 10^3/uL (0.0-0.5); EOS % 2.2 % (0.0-3.0); HEMATOCRIT 30.1 % (36.0-47.0); HEMOGLOBIN 9.5 g/dl (12.0-15.5); LYMPH # 2.2 10^3/uL (1.5-5.0); LYMPH % 15.7 % (24.0-44.0); MEAN CORPUSCULAR HEMOGLOBIN 23.8 pg (27.0-33.0); MEAN CORPUSCULAR HGB CONC 31.6 g/dl (32.0-36.5); MEAN CORPUSCULAR VOLUME 75.3 fl (80.0-96.0); MONO # 0.7 10^3/uL (0.0-0.8); MONO % 4.8 % (2.0-8.0); NEUTROPHILS # 10.6 10^3/uL (1.5-8.5); NEUTROPHILS % 75.5 % (36.0-66.0); PLATELET COUNT, AUTOMATED 659 10^3/uL (150-450)
[2021-01-05 12:51] LABS: CALCIUM LEVEL 9.9 MG/DL (8.8-10.2); CREATININE FOR GFR 3.89 MG/DL (0.55-1.30); GLOMERULAR FILTRATION RATE 12.5 (>45); POTASSIUM SERUM 5.3 MEQ/L (3.5-5.1)
--- NOTE | 2021-01-05 13:45 | REP ---
INDICATION: general illness. COMPARISON: None. TECHNIQUE: Single portable AP view of the chest was performed. FINDINGS: There is no acute infiltrate or pulmonary edema. Lungs are clear. The heart is not significantly enlarged. The mediastinal silhouette is unremarkable, except for some calcification of the thoracic aorta. The visualized osseous structures are intact.Right double lumen central venous catheter is seen with tip in the right atrium. IMPRESSION: No acute pulmonary disease. <Electronically signed by Jitendra Boucher > 01/05/21 0726
--- NOTE | 2021-01-05 13:53 | REP ---
INDICATION: right great toe amputation/heel wound; further eval osteo COMPARISON: 08/30/2017. TECHNIQUE: Four views right foot. FINDINGS: There has been amputation at the level of the 1st metatarsophalangeal joint. There is air in the soft tissues adjacent to the head of the 1st metatarsal. There is no fracture or dislocation. There is no radiographic evidence of osseous destruction, periosteal reaction or other signs of osteomyelitis. Diffuse vascular calcifications are present. IMPRESSION: No fracture or dislocation. No compelling radiographic evidence of osteomyelitis. The patient is status post amputation at the 1st metatarsophalangeal joint, with air in the soft tissues surrounding the head of the 1st metatarsal. <Electronically signed by Jitendra Boucher > 01/05/21 0015
[2021-01-05 14:51] VITALS: BP 176/80
--- NOTE | 2021-01-05 19:53 | ECGEPIP ---
[facility] - ED Test Date: 2021-01-05 Pat Name: KIRSTEN GARCIA Department: Room: - Gender: Female Die Developer: : 1960 Requested By: Evelyn Araya Order Number: [id number] Reading MD: Jill Rangel Measurements Intervals [place] Rate: 76 P: 34 [place]: 172 QRS: -14 QRSD: 92 T: 104 QT: 430 QTc: 483 Interpretive Statements Normal sinus rhythm Left ventricular hypertrophy with repolarization abnormality ( Jason product ) prwp NSTTW abnormalities decreased rate 09/28/18 Electronically Signed on 01-05-2021 19:52:35 EDT by Jill Rangel
[2021-01-06] MEDS ORDERED: D31000TA2 PO (09:53)
[2021-01-06] MEDS ORDERED: CLEO300C2 PO (09:53)
[2021-01-06] MEDS ORDERED: MIRA3350 PO (09:53)
[2021-01-06] MEDS ORDERED: ASPI81TA26 PO (09:53)
[2021-01-06] MEDS ORDERED: GLIP5TAB8 PO (09:53)
[2021-01-06] MEDS ORDERED: NIFE1TAB50 PO (09:53)
== END 2021-01-05 15:58 | disposition left against medical advice (07) ==
LOC: M ED 10:57
DX: N18.6 End stage renal disease (principal); Z91.15 Patient's noncompliance with renal dialysis; Z53.20 Procedure and treatment not carried out because of patient's decision for unspecified reasons; E11.9 Type 2 diabetes mellitus without complications; I10 Essential (primary) hypertension; K21.9 Gastro-esophageal reflux disease without esophagitis; Z79.82 Long term (current) use of aspirin; Z79.4 Long term (current) use of insulin; Z79.899 Other long term (current) drug therapy; Z89.421 Acquired absence of other right toe(s); Z99.2 Dependence on renal dialysis

== ENCOUNTER 2021-01-06 08:58 | Inpatient (IN) | payer OTHER ==
[~2021-01-06] VITALS: Ht 167.6 cm; Wt 63.8 kg
[2021-01-06] MEDS ORDERED: CLEO300C2 PO (09:53)
[2021-01-06] MEDS ORDERED: ASPI81TA26 PO (09:53)
[2021-01-06] MEDS ORDERED: GLIP5TAB8 PO (09:53)
[2021-01-06] MEDS ORDERED: MIRA3350 PO (09:53)
[2021-01-06] MEDS ORDERED: NIFE1TAB50 PO (09:53)
[2021-01-06] MEDS ORDERED: D31000TA2 PO (09:53)
[2021-01-06 09:59] LABS: BASO # 0.1 10^3/uL (0.0-0.2); BASO % 0.7 % (0.0-1.0); EOS # 0.3 10^3/uL (0.0-0.5); EOS % 2.6 % (0.0-3.0); HEMATOCRIT 28.7 % (36.0-47.0); HEMOGLOBIN 8.8 g/dl (12.0-15.5); LYMPH # 1.7 10^3/uL (1.5-5.0); LYMPH % 16.5 % (24.0-44.0); MEAN CORPUSCULAR HEMOGLOBIN 23.5 pg (27.0-33.0); MEAN CORPUSCULAR HGB CONC 30.7 g/dl (32.0-36.5); MEAN CORPUSCULAR VOLUME 76.5 fl (80.0-96.0); MONO # 0.6 10^3/uL (0.0-0.8); MONO % 5.9 % (2.0-8.0); NEUTROPHILS # 7.4 10^3/uL (1.5-8.5); NEUTROPHILS % 73.7 % (36.0-66.0); PLATELET COUNT, AUTOMATED 551 10^3/uL (150-450); RED BLOOD COUNT 3.75 10^6/uL (4.00-5.40); WHITE BLOOD COUNT 10.1 10^3/uL (4.0-10.0)
[2021-01-06 10:12] LABS: BLOOD UREA NITROGEN 53 MG/DL (7-18); CARBON DIOXIDE LEVEL 26 MEQ/L (21-32); CHLORIDE LEVEL 96 MEQ/L (98-107); CREATININE FOR GFR 3.84 MG/DL (0.55-1.30); GLOMERULAR FILTRATION RATE 12.7 (>45); GLUCOSE, FASTING 296 MG/DL (70-100); MAGNESIUM LEVEL 2.3 MG/DL (1.8-2.4); PHOSPHORUS LEVEL 4.5 MG/DL (2.5-4.9); SODIUM LEVEL 132 MEQ/L (136-145)
[2021-01-06 10:26] LABS: RSV AMPLIFICATION NEGATIVE (NEGATIVE)
[2021-01-06 11:05] LABS: CHOLESTEROL LEVEL 210 MG/DL (<200); HDL CHOLESTEROL 30 MG/DL (>40); NON-HDL-C 180 MG/DL; TRIGLYCERIDES LEVEL 428 MG/DL (<150)
[2021-01-06 11:15] LABS: HEPATITIS B SURFACE ANTIBODY POSITIVE (POSITIVE)
[2021-01-06 11:25] LABS: HEPATITIS B SURFACE ANTIGEN NEGATIVE (NEGATIVE)
[2021-01-06] MEDS ORDERED: DARBEPOETIN 200MCG/0.4ML *DIALYSIS* SYRINGE (J0882 PER 1MCG) IV SCH (11:35)
[2021-01-06 11:53] LABS: HEPATITIS C VIRUS ABY INDEX < 0.0 INDEX (<0.8)
[2021-01-06 11:54] LABS: HEPATITIS B CORE ANTIBODY IGM NEGATIVE (NEGATIVE)
--- NOTE | 2021-01-06 13:27 | HPEPDOC ---
[facility] Medical History & Physical Date of Admission Jan 06, 2021 Date of Service: Jan 06, 2021 History and Physical CHIEF COMPLAINT: ESRD needing HD HISTORY OF PRESENT ILLNESS: 60-year-old female with history of end-stage renal disease requiring hemodialysis and medical noncompliance presents for hemodialysis. Patient was seen in the emergency room yesterday for the same reason however, she left AGAINST MEDICAL ADVICE. She also notes trauma to her right foot which occurred about two weeks ago. She follows with Dr. Rabago. She denies chest pain, shortness of breath, abdominal pain, N/V/D, headaches. PAST MEDICAL HISTORY: #Diabetes #GERD #Ischemic CVA 2. #Hypertension. #Anemia. #End-stage renal disease on hemodialysis Family History: father, 81, alive, CVA, DM; mother alive, 79, CVA, DM, HTN Social History: never smoker, denies alcohol, illicit drug use ALLERGIES: Please see below. REVIEW OF SYSTEMS: Negative except as per HPI. HOME MEDICATIONS: Please see below. PHYSICAL EXAMINATION: VITAL SIGNS: See below General; NAD, lying comfortably in bed HEENT: NC/AT, edentulous, EOMI Lungs: CTA B/L Heart: +S1S2, RRR, -N/R/G Abd: soft, NT, +BS Ext: trace edema Neuro: AAOx3, no gross focal deficits LABORATORY DATA: See below. MICROBIOLOGY: Please see below. A/P: 60-year-old female with past medical history of end-stage renal disease on hemodialysis and medical noncompliance presents for hemodialysis. #ESRD/HD - nephrology consultation - HD today #right foot wound - wound care - advanced wound care c/s #DM #GERD #Ischemic CVA 2. - asa, simvastatin #HTN - nifedipine, chlorthalidone, lopressor, lasix #Anemia. #DVT prophylaxis Vital Signs Vital Signs Date Time Temp Pulse Resp B/P (MAP) Pulse Ox O2 Delivery O2 Flow Rate FiO2 01/06/21 11:58 66 16 100 Room Air 01/06/21 11:30 221/93 (135) 01/06/21 09:00 96.8 Laboratory Data Labs 24H Laboratory Tests 2 01/06/21 09:17: Immature Granulocyte % (Auto) 0.6, Neutrophils (%) (Auto) 73.7H, Lymphocytes (%) (Auto) 16.5L, Monocytes (%) (Auto) 5.9, Eosinophils (%) (Auto) 2.6, Basophils (%) (Auto) 0.7, Neutrophils # (Auto) 7.4, Lymphocytes # (Auto) 1.7, Monocytes # (Auto) 0.6, Eosinophils # (Auto) 0.3, Basophils # (Auto) 0.1, Nucleated Red Blood Cells % (auto) 0.0, Anion Gap 10, Glomerular Filtration Rate 12.7L, Calcium Level 9.0, Phosphorus Level 4.5, Magnesium Level 2.3, Triglycerides Level 428H, Total Cholesterol 210H, LDL Cholesterol , Non-HDL Cholesterol (LDL + VLDL) 180, Total HDL Cholesterol 30L, Cholesterol/HDL Ratio 7.000H, Hepatitis B Surface Antigen NEGATIVE, Hepatitis B Surface Antibody POSITIVE, Hepatitis B Core IgM Antibody NEGATIVE, Hepatitis C Antibody Index < 0.0 01/06/21 09:25: Coronavirus (COVID-19)(PCR) NEGATIVE, Influenza Type A (RT-PCR) NEGATIVE, Influenza Type B (RT-PCR) NEGATIVE, Respiratory Syncytial Virus (PCR) NEGATIVE CBC/BMP Laboratory Tests 01/06/21 09:17 Home Medications Scheduled Aspirin (Aspirin EC) 81 Mg Tablet.dr, 81 MG PO DAILY Calcitriol (Rocaltrol) 0.25 Mcg Capsule, 0.25 MCG PO 2XW MON/FRI Chlorthalidone (Chlorthalidone) 25 Mg Tab, 25 MG PO DAILY Cholecalciferol (Vitamin D3) (Vitamin D3) 1,000 Unit Tablet, 1,000 UNITS PO DAILY Clindamycin Hcl (Cleocin HCl) 300 Mg Capsule, 600 MG PO BID FOR 14 DAYS, PT STARTED A COUPLE DAYS AGO PER FAMILY Furosemide (Furosemide) 40 Mg Tablet, 40 MG PO BID TAKES AM/AFTERNOON Gabapentin (Gabapentin) 300 Mg Cap, 300 MG PO QHS Glipizide (Glipizide) 5 Mg Tablet, 5 MG PO BID Insulin Glargine,Hum.rec.anlog (Basaglar Kwikpen U-100) 100 Unit/1 Ml Insuln.pen, 20 UNITS SQ BID Metoprolol Tartrate (Metoprolol Tartrate) 50 Mg Tab, 75 MG PO BID Nifedipine (Nifedipine ER) 30 Mg Tablet.er, 30 MG PO DAILY Nifedipine (Nifedipine ER) 90 Mg Tab.er.24, 90 MG PO DAILY Omeprazole (Omeprazole) 20 Mg Cap, 20 MG PO DAILY Polyethylene Glycol 3350 (Miralax) 119 Gm Powder, 17 GM PO DAILY dilute in 8 ounces of water or juice Simvastatin (Simvastatin) 20 Mg Tab, 20 MG PO QHS Allergies Coded Allergies: No Known Allergies (Unverified , 09/04/19) A-FIB/CHADSVASC A-FIB History Current/History of A-Fib/PAF?: No CRISTOFER ELLIOTT MD Jan 06, 2021 13:27
[2021-01-06] MEDS: IRON SUCROSE 100MG 5ML VIAL (J1756 PER 1MG) IV SCH (13:46)
[2021-01-06 16:21] VITALS: BP 150/63
[2021-01-06] MEDS: FUROSEMIDE 40 MG TAB PO SCH (17:35)
[2021-01-06 18:54] LABS: HEMOGLOBIN A1c 9.7 %
[2021-01-06] MEDS: glipiZIDE (GLUCOTROL) 5 MG TAB PO SCH (20:22)
[2021-01-06] MEDS: CLINDAMYCIN 150MG CAPSULE PO SCH (20:22)
[2021-01-06] MEDS: SIMVASTATIN 20 MG TAB PO SCH (20:22)
[2021-01-06] MEDS: GABAPENTIN 300 MG CAP PO SCH (20:23)
[2021-01-06] MEDS: METOPROLOL TART 25 MG TABLET PO SCH (20:23)
[2021-01-06 22:00] VITALS: BP 160/84
--- NOTE | 2021-01-06 23:37 | CR ---
INITIAL INPATIENT CONSULTATION DATE: 01/06/2021 REQUESTING PHYSICIAN: Dr. Adams Olsen CONSULTING PHYSICIAN: Dr. Simeon REASON FOR CONSULTATION: Management of end-stage renal disease. CHIEF COMPLAINT: Patient presented to the Emergency Room after missing dialysis for a week. HISTORY OF PRESENT ILLNESS: Lilliam Rivera is a 60-year-old female with past medical history of end-stage renal disease on hemodialysis, history of diabetes mellitus type 2, hypertension, peripheral vascular disease, left eye blindness, other comorbidities as mentioned below. She used to be a dialysis patient at [facility], however, she went on vacation to [facility] for a couple of weeks and over there she was being dialyzed twice a week (Sunday and Sunday). She was last dialyzed last Sunday. She came back to the [facility], however, she did not get in touch with our dialysis center. Finally she was called to the Emergency Room and she signed out against medical advice again yesterday. Her son brought her again today morning. Patient lost her dialysis spot as an outpatient. She is being admitted under the hospitalist service for re-initiation of hemodialysis and to arrange her hemodialysis as an outpatient. I saw and evaluated the patient today morning at the bedside. Patient is awake and alert. She was able to provide me with history and there was no apparent distress. I arranged her hemodialysis to be done as inpatient today. PAST MEDICAL HISTORY: Hypertension, diabetes mellitus type 2, gastroesophageal reflux disease, ischemic CVA x2, anemia and chronic kidney disease and end-stage renal disease, peripheral vascular disease. PAST SURGICAL HISTORY: Status post right IJ tunneled hemodialysis catheter, status post right big toe amputation when she was in [facility] and as reported by son, she was told that she had wet gangrene. FAMILY HISTORY: No significant family history of end-stage renal disease requiring hemodialysis. SOCIAL HISTORY: Patient denies any smoking, illicit drug abuse or alcohol abuse. She lives with her son. ALLERGIES: No known drug allergies. REVIEW OF SYSTEMS: CONSTITUTIONAL: She denies any fevers or chills. EYES: She denies any blurry vision. She does report left eye blindness. ENT: She denies any dysphagia, odynophagia, CVS: She denies any chest pain or shortness of breath. RESPIRATORY: She denies any cough or shortness of breath. GI: She denies any nausea or vomiting. GENITOURINARY: She reports decreased urine output. MUSCULOSKELETAL: She reports right big toe amputation. SKIN: She reports right big toe amputation site ulcer. HEMATOLOGICAL/ONCOLOGICAL: Denies any easy bleeding or bruising. ENDOCRINE: She reports diabetes mellitus type 2. QUAIL FARMER: No strokes or seizures recently, history of ischemic CVA x2 in the past. All other review of systems is negative. PHYSICAL EXAMINATION: GENERAL: Patient is awake, alert, oriented x3, lying in bed, in no apparent distress. HEAD/NECK: Patient has left eye blindness. Mucous membranes are moist. Neck is supple. Right IJ tunneled hemodialysis catheter is noted. CARDIOVASCULAR: S1, S2, regular rate. No edema of the bilateral lower extremities. RESPIRATORY: Chest is clear to auscultation bilaterally. Bilateral equal air entry. No rales or rhonchi. ABDOMEN: Soft, positive bowel sounds, nontender. No organomegaly. MUSCULOSKELETAL: No clubbing or cyanosis. Pulses are 2+. Patient has dressing on the right big toe amputation site. QUAIL FARMER: No focal deficit. Power is 5/5 in all extremities. LABORATORY REVIEW: CBC showed WBC 10.1, hemoglobin 8.8, platelets 551,000. BMP showed sodium 132, potassium 4, chloride 96, bicarb 26, BUN 53, creatinine 3.8. Hemoglobin A1C 9.7. Magnesium 2.3. Hepatitis B surface antibody is positive. Hepatitis B surface antigen is negative. Hepatitis C antibody is negative. IMAGING: A foot x-ray was done of the right foot, which showed no fracture or dislocation, no compelling evidence of osteomyelitis; status post amputation of the first metatarsophalangeal joint. CURRENT INPATIENT MEDICATIONS: Patient's medications were all reviewed by myself. She is currently on aspirin 81 mg p.o. daily, Calcitriol 0.25 mcg p.o. Sunday and Sunday, Chlorthalidone 25 mg p.o. daily, Clindamycin 600 mg p.o. twice a day. I have started her on Aranesp 200 mcg I.V. with dialysis. She is on Lasix 40 mg p.o. twice a day, Gabapentin 300 mg p.o. q.h.s., Glipizide 5 mg p.o. twice a day. I have started her on Venofer 100 mg I.V. with dialysis. She is on Metoprolol Tartrate 75 mg p.o. twice a day, Nifedipine 120 mg p.o. daily, Omeprazole 20 mg p.o. daily, MiraLax one packet daily, Simvastatin 20 mg q.h.s., and Vitamin D 1,000 units p.o. daily. ASSESSMENT AND PLAN: 1. End-stage renal disease: Patient missed her dialysis for a week, she will be dialyzed today for 3-1/2 hours. She does not have any evidence of edema, minimal fluid removal will be done. 2. Anemia and end-stage renal disease: Hemoglobin level is suboptimal. She is being started on Venofer and Aranesp as mentioned above. 3. Right big toe amputation: Patient is currently on Clindamycin. 4. Secondary hyperparathyroidism: Continue current dose of Calcitriol. 5. Hypertension: Continue current dose of Metoprolol and Nifedipine. 6. Diabetes mellitus type 2: Patient is currently on Glipizide, glucose levels are within the acceptable range. DISPOSITION: I have requested a PFS consult for placement of patient at outpatient dialysis center again. Once she has a spot as an outpatient, she will be discharged home. Thank you for involving me in the care of this patient. I shall be happy to follow the patient along with you tomorrow morning.
[2021-01-07 05:15] LABS: HEMATOCRIT 30.4 % (36.0-47.0); HEMOGLOBIN 9.1 g/dl (12.0-15.5); MEAN CORPUSCULAR HEMOGLOBIN 23.2 pg (27.0-33.0); MEAN CORPUSCULAR HGB CONC 29.9 g/dl (32.0-36.5); MEAN CORPUSCULAR VOLUME 77.6 fl (80.0-96.0); PLATELET COUNT, AUTOMATED 544 10^3/uL (150-450); RED BLOOD COUNT 3.92 10^6/uL (4.00-5.40); WHITE BLOOD COUNT 11.6 10^3/uL (4.0-10.0)
[2021-01-07 05:42] LABS: ALBUMIN 2.7 GM/DL (3.2-5.2); BILIRUBIN,TOTAL 0.3 MG/DL (0.2-1.0); CALCIUM LEVEL 9.3 MG/DL (8.8-10.2); CREATININE FOR GFR 2.7 MG/DL (0.55-1.30); POTASSIUM SERUM 4.4 MEQ/L (3.5-5.1); TOTAL PROTEIN 7.5 GM/DL (6.4-8.2)
[2021-01-07 06:00] VITALS: BP 147/82
[2021-01-07] MEDS ORDERED: NIFEdipine 30 MG XL TAB PO SCH ×2 (09:00)
[2021-01-07] MEDS: MIRALAX *UNIT DOSE* 17GM PACKET PO SCH (09:43)
[2021-01-07] MEDS: NIFEdipine 30 MG XL TAB PO SCH (09:44)
[2021-01-07] MEDS: OMEPRAZOLE 20 MG CAP PO SCH (09:44)
[2021-01-07] MEDS: ASPIRIN 81MG ENTERIC TABLET PO SCH (09:44)
[2021-01-07] MEDS: CALCITRIOL 0.25 MCG CAP (S0169) PO SCH (09:45)
[2021-01-07] MEDS: VITAMIN D 1,000 INTERNATIONAL UNITS TABLET PO SCH (09:45)
[2021-01-07] MEDS: CHLORTHALIDONE 25 MG TAB PO SCH (09:45)
[2021-01-07] MEDS: FUROSEMIDE 40 MG TAB PO SCH ×2 (09:45→17:17)
[2021-01-07] MEDS: glipiZIDE (GLUCOTROL) 5 MG TAB PO SCH ×2 (09:45→21:30)
[2021-01-07] MEDS: CLINDAMYCIN 150MG CAPSULE PO SCH ×2 (09:46→22:21)
[2021-01-07] MEDS: METOPROLOL TART 25 MG TABLET PO SCH ×2 (09:46→22:17)
--- NOTE | 2021-01-07 12:52 | IPNPDOC ---
Text Note Date of Service The patient was seen on 01/07/21. NOTE Subjective: Seen and examined at bedside. No acute overnight events reported. Patient has no new medical complaints this morning. Objective: PHYSICAL EXAMINATION: VITAL SIGNS: See below General; NAD, lying comfortably in bed HEENT: NC/AT, edentulous, EOMI Chest: CTA B/L, right anterior chest catheter in place, area is C/D/I Heart: +S1S2, RRR, -M/R/G Abd: soft, NT, +BS Ext: trace edema, right hallux dressings in place Neuro: AAOx3, no gross focal deficits A/P: 60-year-old female with past medical history of end-stage renal disease on hemodialysis and medical noncompliance presents for hemodialysis. #ESRD/HD - nephrology consultation - HD today #right foot wound - wound care - advanced wound care c/s appreciated - arterial US, continue clindamycin #DM - uncontrolled - A1C 9.7 - continue glipizide - carb consistent diet #GERD #Ischemic CVA 2. - asa, simvastatin #HTN - nifedipine, chlorthalidone, lopressor, lasix #Anemia - venofer, aranesp #DVT prophylaxis VS,Fishbone, I+O VS, Fishbone, I+O Laboratory Tests 01/07/21 04:31 Vital Signs Date Time Temp Pulse Resp B/P (MAP) Pulse Ox O2 Delivery O2 Flow Rate FiO2 01/07/21 09:46 83 195/78 01/07/21 06:00 97.8 18 98 Room Air I&O- Last 24 Hours up to 6 AM 01/07/21 06:00 Intake Total 330 ml Output Total 1000 ml Balance -670 ml CRISTOFER ELLIOTT MD Jan 07, 2021 12:52
[2021-01-07 14:00] VITALS: BP 186/70
--- NOTE | 2021-01-07 17:33 | CR ---
ADVANCED WOUND CARE CONSULTATION VIA TELEMEDICINE DATE: 01/07/2021 CONSULTATION REQUESTED BY: Adams Olsen M.D. REASON FOR CONSULTATION: Recommendations for right foot wounds. Patient identified and verbal consent obtained. HISTORY OF PRESENT ILLNESS: A 60-year-old female with multiple medical problems on dialysis, advanced peripheral vascular disease, has had a stroke in the past, has been seen in the wound clinic in the past, was discharged with no open wounds at that time. Apparently, the patient was in her home [place] of [facility] in [facility]. When she returned, had major issues involving her right foot, more specifically, an open amputation site of great toe and a wound involving her right heel. Patient is in the hospital awaiting dialysis openings as an outpatient. On her right foot, great toe open amputation site measuring 2.0 cm x 3.5 cm with a wound depth of 0.2 cm. According to the nurse at present, there is palpable exposed bone. The right heel medial aspect shows a wound 2.4 cm x 3.0 cm. This has been debrided by podiatry. There is minimal drainage from either wound. Periwounds show no erythema, maceration or ischemic change, and there is no edema involving the right lower extremity. WOUND RECOMMENDATIONS: Clean wounds with Vashe wound cleanser and cover with Hydrofera Blue medicated foam. A heel float boot is mandatory to take pressure off of the right heel. An arterial ultrasound is also indicated and should be obtained prior to discharge. When patient is ready for discharge, please contact our advanced wound care center for followup treatment. Wound care telemedicine provides a visual assessment of a wound without the benefit of physical examination. It can assist with establishing an etiology. This allows for an initial treatment plan. As wounds often change, it may be necessary to modify the original care. Our recommendation is periodic wound reassessment to monitor treatment. Failure to comply may result in nonhealing of the wound, possible complications and/or a poor outcome. The recommendations given will serve as a treatment open. As I will not be following this patient, this care plan will require the attending physician to give and sign the recommended orders. Upon discharge, outpatient followup can be scheduled at our wound care center. LATISHA
--- NOTE | 2021-01-07 18:10 | REP ---
INDICATION: peripheral vascular disease - please do bilateral. COMPARISON: None. TECHNIQUE: Bilateral lower extremity arterial Doppler ultrasound: FINDINGS: The ankle brachial indices are somewhat low bilaterally measured at 0.68 on the right and 0.79 on the left. The vessels are heavily calcified raising the possibility that these ratios may be artificially high. Monophasic arterial Doppler waveforms are noted throughout the lower extremities bilaterally. Severe plaquing is seen extensively and bilaterally. Relatively high velocities are observed in the common femoral arteries region question bilateral inflow disease. There is a 2.821 velocity ratio stenosis in the right common femoral artery and a 2.5-1 proximal right profundal femoral artery stenosis. There is a 1.8-1 velocity ratio stenosis in the left common femoral artery stenotic high velocities are observed in the common femoral arteries bilaterally, velocities greater than 500 cm/S. Multiple SFA occlusions noted bilaterally with revascularization in the right distal SFA and left popliteal artery. The distal right posterior tibial artery is occluded with increased diastolic flow. Right lower extremity arterial Doppler velocity chart: Right INSULATING MACHINE OPERATOR PSV 210/595/174 Profundal 426 Proximal SFA 59/occluded Mid SFA occluded Distal SFA revascularized, 28 cm/S Popliteal 42 Proximal FRANCISCO J 102 Tibial-peroneal trunk 46 Proximal REFRIGERATOR MOVER 48 Distal REFRIGERATOR MOVER occluded Distal FRANCISCO J 35 Left lower extremity arterial Doppler velocity chart: Left INSULATING MACHINE OPERATOR PSV 274/506/194 Profundal 220 cm/S Proximal SFA 234/occluded Mid SFA occluded Distal SFA 53/occluded Popliteal revascularized 35 Proximal FRANCISCO J 29 Tibial-peroneal trunk 17 Proximal REFRIGERATOR MOVER 49 Distal REFRIGERATOR MOVER 20 Distal FRANCISCO J 21 IMPRESSION: Extensive atherosclerotic disease as above. Bilateral common femoral artery stenoses. Bilateral superficial femoral artery occlusions. Distal posterior tibial occlusion on the right. <Electronically signed by Reji Hernandez > 01/07/21 [id number]
[2021-01-07] MEDS: SIMVASTATIN 20 MG TAB PO SCH (21:29)
[2021-01-07] MEDS: GABAPENTIN 300 MG CAP PO SCH (21:30)
[2021-01-07 22:00] VITALS: BP 151/70
--- NOTE | 2021-01-07 22:08 | IPN ---
NEPHROLOGY PROGRESS NOTE DATE: 01/07/2021 SUBJECTIVE: The patient was seen and examined at the bedside today morning. She is afebrile, hemodynamically stable. She was dialyzed yesterday. She tolerated the hemodialysis procedure well. She reports that her dialysis was too long. She was getting 3 hours of dialysis, and she is requesting the dialysis duration to be decreased to 3 hours. Otherwise denies any active complaints. OBJECTIVE: VITAL SIGNS: Temperature is 98.1 degrees Fahrenheit, blood pressure 186/70, pulse is 75, respiratory rate of 18, saturating 99% on room air. INTAKE AND OUTPUT: Urine output is not recorded. She has incontinent voids. Ultrafiltration with hemodialysis was one liter yesterday. PHYSICAL EXAMINATION: GENERAL APPEARANCE: The patient is awake, alert, oriented x3, laying in bed. HEAD AND NECK: The patient has left eye blindness. Otherwise the mucous membranes are moist. Neck is supple. She has a right IJ tunneled hemodialysis catheter. CARDIOVASCULAR: S1, S2, regular rate. EXTREMITIES: No edema of the bilateral lower extremities. RESPIRATORY: Chest is clear to auscultation bilaterally. Bilaterally currently no rales or rhonchi. ABDOMEN: Soft, positive bowel sounds, nontender, no organomegaly. MUSCULOSKELETAL: The patient has a dressing on the right foot, big toe amputation site. APPLICATION INTEGRATION ARCHITECT: The patient has left eye blindness. Otherwise no focal deficits. LAB REVIEW: CBC showed a WBC count of 11.6, hemoglobin 9.1, platelet count 554. BMP showed sodium of 134, potassium 4.4, chloride 102, bicarbonate 23, BUN 28, creatinine is 2.7. IMAGING: Bilateral lower extremity artery yesterday was done. It showed extensive atherosclerotic disease, bilateral common femoral artery stenosis and bilateral superficial femoral artery occlusion. CURRENT INPATIENT MEDICATIONS: The patient's medications were all reviewed by myself. There is no significant change in the medications today as compared with yesterday. ASSESSMENT AND PLAN: 1. End-stage renal disease - The patient was dialyzed yesterday. Next hemodialysis will be done tomorrow morning. I have decreased her dialysis duration to 3 hours. 2. Anemia in end-stage renal disease - The patient is getting Aranesp and Venofer. Hemoglobin is improving. 3. Peripheral vascular disease and right big toe amputation - The patient is on Clindamycin. The rest of the peripheral vascular disease management is as per Vascular. 4. Secondary hyperparathyroidism - continue current dose of Calcitriol. 5. Hypertension - continue Nifedipine and Metoprolol. Optimization of fluid status would also help improve blood pressure.
[2021-01-08 06:00] VITALS: BP 137/59
[2021-01-08] MEDS: CLINDAMYCIN 150MG CAPSULE PO SCH ×2 (06:19→20:37)
[2021-01-08] MEDS: MIRALAX *UNIT DOSE* 17GM PACKET PO SCH (06:19)
[2021-01-08] MEDS: NIFEdipine 30 MG XL TAB PO SCH (06:20)
[2021-01-08] MEDS: ASPIRIN 81MG ENTERIC TABLET PO SCH (06:20)
[2021-01-08] MEDS: CHLORTHALIDONE 25 MG TAB PO SCH (06:21)
[2021-01-08] MEDS: VITAMIN D 1,000 INTERNATIONAL UNITS TABLET PO SCH (06:21)
[2021-01-08] MEDS: OMEPRAZOLE 20 MG CAP PO SCH (06:21)
[2021-01-08] MEDS: FUROSEMIDE 40 MG TAB PO SCH ×2 (06:21→17:46)
[2021-01-08] MEDS: glipiZIDE (GLUCOTROL) 5 MG TAB PO SCH ×2 (06:22→20:38)
[2021-01-08] MEDS: METOPROLOL TART 25 MG TABLET PO SCH ×2 (06:22→20:38)
[2021-01-08 06:46] LABS: HEMATOCRIT 28.4 % (36.0-47.0); HEMOGLOBIN 8.6 g/dl (12.0-15.5); MEAN CORPUSCULAR HEMOGLOBIN 23.3 pg (27.0-33.0); MEAN CORPUSCULAR HGB CONC 30.3 g/dl (32.0-36.5); PLATELET COUNT, AUTOMATED 506 10^3/uL (150-450); RED BLOOD COUNT 3.69 10^6/uL (4.00-5.40); WHITE BLOOD COUNT 12.3 10^3/uL (4.0-10.0)
[2021-01-08 07:03] LABS: CALCIUM LEVEL 9.2 MG/DL (8.8-10.2); CREATININE FOR GFR 3.6 MG/DL (0.55-1.30); GLOMERULAR FILTRATION RATE 13.6 (>45); POTASSIUM SERUM 4.4 MEQ/L (3.5-5.1)
[2021-01-08] MEDS: IRON SUCROSE 100MG 5ML VIAL (J1756 PER 1MG) IV SCH (08:40)
[2021-01-08 14:00] VITALS: BP 141/58
[2021-01-08] MEDS: GABAPENTIN 300 MG CAP PO SCH (20:37)
[2021-01-08] MEDS: SIMVASTATIN 20 MG TAB PO SCH (20:38)
--- NOTE | 2021-01-08 20:47 | IPN ---
PROGRESS NOTE DATE: 01/08/2021 SUBJECTIVE: The patient was seen and examined at the bedside today morning during hemodialysis procedure. She is tolerating the hemodialysis procedure well. She denied any other active complaints at this time. OBJECTIVE: VITAL SIGNS: Temperature 98.9 degrees Fahrenheit, blood pressure 141/58, pulse 82, respiratory rate 18, saturating 98% on room air. INTAKE AND OUTPUT: There is no urine output recorded. She has incontinent voids. Weight on the bed scale is not available. GENERAL: The patient is awake, alert, and oriented x3 laying in bed getting hemodialysis done. HEAD AND NECK: The patient has left eye blindness. Neck is supple. She has a right IJ tunnel hemodialysis catheter. CARDIOVASCULAR: S1, S2. Regular rate. No edema of the bilateral lower extremities. RESPIRATORY: Chest is clear to auscultation bilaterally. Bilaterally currently no rales or rhonchi. ABDOMEN: Soft with positive bowel sounds, nontender, and no organomegaly. MUSCULOSKELETAL: No clubbing or cyanosis. Pulses are 2+. VETERINARY SURGEON: No focal deficit apart from left eye blindness. LABORATORY REVIEW: CBC showed a WBC of 12.3, hemoglobin 8.6, platelets 506,000. BMP showed sodium 131, potassium 4.4, chloride 99, bicarb 24, BUN 45, creatinine 3.6. CURRENT INPATIENT MEDICATIONS: The patient's medications were all reviewed by myself. No significant change in the medication today as compared with yesterday. ASSESSMENT AND PLAN: 1. End-stage renal disease. The patient is being dialyzed according to her regular regimen. She will be dialyzed for three hours today. Volume status is optimal. 2. Hypertension with hypertensive heart disease. Continue current dose of metoprolol and nifedipine. She is also taking a combination of diuretic and chlorthalidone at this time. I will let her continue. Potassium level is within the acceptable range. 3. Secondary hyperparathyroidism. Continue Calcitriol twice a week. 4. Anemia and end-stage renal disease. The patient has been started on Aranesp and Venofer.
[2021-01-08 22:00] VITALS: BP 143/67
[2021-01-09 06:00] VITALS: BP 134/62
[2021-01-09 08:42] LABS: HEMATOCRIT 28.3 % (36.0-47.0); HEMOGLOBIN 8.7 g/dl (12.0-15.5); MEAN CORPUSCULAR HEMOGLOBIN 23.5 pg (27.0-33.0); MEAN CORPUSCULAR HGB CONC 30.7 g/dl (32.0-36.5); MEAN CORPUSCULAR VOLUME 76.3 fl (80.0-96.0); PLATELET COUNT, AUTOMATED 488 10^3/uL (150-450); RED BLOOD COUNT 3.71 10^6/uL (4.00-5.40)
[2021-01-09 09:16] LABS: CALCIUM LEVEL 9.1 MG/DL (8.8-10.2); CREATININE FOR GFR 2.84 MG/DL (0.55-1.30); GLOMERULAR FILTRATION RATE 17.9 (>45)
[2021-01-09] MEDS: NIFEdipine 30 MG XL TAB PO SCH (09:24)
[2021-01-09] MEDS: VITAMIN D 1,000 INTERNATIONAL UNITS TABLET PO SCH (09:25)
[2021-01-09] MEDS: FUROSEMIDE 40 MG TAB PO SCH ×2 (09:25→16:50)
[2021-01-09] MEDS: METOPROLOL TART 25 MG TABLET PO SCH ×2 (09:25→20:08)
[2021-01-09] MEDS: CHLORTHALIDONE 25 MG TAB PO SCH (09:25)
[2021-01-09] MEDS: ASPIRIN 81MG ENTERIC TABLET PO SCH (09:26)
[2021-01-09] MEDS: MIRALAX *UNIT DOSE* 17GM PACKET PO SCH (09:26)
[2021-01-09] MEDS: OMEPRAZOLE 20 MG CAP PO SCH (09:26)
[2021-01-09] MEDS: CLINDAMYCIN 150MG CAPSULE PO SCH ×2 (09:26→20:05)
[2021-01-09] MEDS: glipiZIDE (GLUCOTROL) 5 MG TAB PO SCH ×2 (09:26→20:05)
--- NOTE | 2021-01-09 13:52 | IPNPDOC ---
Text Note Date of Service The patient was seen on 01/08/21. NOTE Subjective: Seen and examined at bedside. No acute overnight events reported. Patient has no new medical complaints this morning. Objective: PHYSICAL EXAMINATION: VITAL SIGNS: See below General; NAD, lying comfortably in bed HEENT: NC/AT, edentulous, EOMI Chest: speaking easily in full sentences, no accessory muscle use, right anterior chest catheter in place Heart: +S1S2, RRR, -M/R/G Abd: soft, NT, +BS Ext: trace edema, right hallux dressings in place Neuro: no gross focal deficits Psych: AAOx3 A/P: 60-year-old female with past medical history of end-stage renal disease on hemodialysis and medical noncompliance presents for hemodialysis. #ESRD/HD - nephrology consultation - HD again today #right foot wound - wound care - advanced wound care c/s appreciated - arterial US noted - severe disease #DM - uncontrolled - A1C 9.7 - continue glipizide - carb consistent diet #GERD #Ischemic CVA 2. - asa, simvastatin #HTN - nifedipine, chlorthalidone, lopressor, lasix #Anemia - venofer, aranesp #DVT prophylaxis VS,Fishbone, I+O VS, Fishbone, I+O Laboratory Tests 01/09/21 08:09 Vital Signs Date Time Temp Pulse Resp B/P (MAP) Pulse Ox O2 Delivery O2 Flow Rate FiO2 01/09/21 09:25 85 01/09/21 09:24 142/58 01/09/21 06:00 97.4 16 98 Room Air I&O- Last 24 Hours up to 6 AM 01/09/21 05:59 Intake Total 1500 ml Output Total 1000 ml Balance 500 ml CRISTOFER ELLIOTT MD Jan 09, 2021 13:52
--- NOTE | 2021-01-09 13:55 | IPNPDOC ---
Text Note Date of Service The patient was seen on 01/09/21. NOTE Subjective: Seen and examined at bedside. No acute overnight events reported. Patient has no new medical complaints this morning. Objective: PHYSICAL EXAMINATION: VITAL SIGNS: See below General; NAD, lying comfortably in bed, in good spirits HEENT: NC/AT, edentulous, EOMI Chest: CTA B/L, right anterior chest catheter in place, area is C/D/I Heart: +S1S2, RRR, -M/R/G Abd: soft, NT, +BS Ext: trace edema, right hallux dressings in place Neuro: no gross focal deficits Psych: AAOx3 A/P: 60-year-old female with past medical history of end-stage renal disease on hemodialysis and medical noncompliance presents for hemodialysis. #ESRD/HD - nephrology consultation - HD again today #right foot wound - wound care - advanced wound care c/s appreciated - arterial US noted - severe disease - patient is not interested in inpatient surgical intervention - wishes to have o/p follow up #DM - uncontrolled - A1C 9.7 - continue glipizide - carb consistent diet #GERD #Ischemic CVA 2. - asa, simvastatin #HTN - nifedipine, chlorthalidone, lopressor, lasix #Anemia - venofer, aranesp #DVT prophylaxis Disposition: pending outpatient setup for dialysis, wound care follow up, PFS/PT VS,Fishbone, I+O VS, Fishbone, I+O Laboratory Tests 01/09/21 08:09 Vital Signs Date Time Temp Pulse Resp B/P (MAP) Pulse Ox O2 Delivery O2 Flow Rate FiO2 01/09/21 09:25 85 01/09/21 09:24 142/58 01/09/21 06:00 97.4 16 98 Room Air I&O- Last 24 Hours up to 6 AM 01/09/21 05:59 Intake Total 1500 ml Output Total 1000 ml Balance 500 ml CRISTOFER ELLIOTT MD Jan 09, 2021 13:55
[2021-01-09] MEDS: SIMVASTATIN 20 MG TAB PO SCH (20:05)
[2021-01-09] MEDS: GABAPENTIN 300 MG CAP PO SCH (20:05)
[2021-01-09 22:00] VITALS: BP 128/54
[2021-01-10 06:00] VITALS: BP 118/58
[2021-01-10 07:40] LABS: HEMATOCRIT 26.4 % (36.0-47.0); MEAN CORPUSCULAR HEMOGLOBIN 23.3 pg (27.0-33.0); MEAN CORPUSCULAR HGB CONC 30.3 g/dl (32.0-36.5); PLATELET COUNT, AUTOMATED 438 10^3/uL (150-450); RED BLOOD COUNT 3.43 10^6/uL (4.00-5.40); WHITE BLOOD COUNT 13.2 10^3/uL (4.0-10.0)
[2021-01-10 08:03] LABS: CALCIUM LEVEL 8.7 MG/DL (8.8-10.2); CREATININE FOR GFR 3.77 MG/DL (0.55-1.30); GLOMERULAR FILTRATION RATE 12.9 (>45); POTASSIUM SERUM 4.2 MEQ/L (3.5-5.1)
[2021-01-10] MEDS ORDERED: SODIUM CHLORIDE 0.9% 1000ML IV PRN (09:20)
[2021-01-10] MEDS: MIRALAX *UNIT DOSE* 17GM PACKET PO SCH (09:31)
[2021-01-10] MEDS: ASPIRIN 81MG ENTERIC TABLET PO SCH (09:32)
[2021-01-10] MEDS: METOPROLOL TART 25 MG TABLET PO SCH ×2 (09:32→20:18)
[2021-01-10] MEDS: CALCITRIOL 0.25 MCG CAP (S0169) PO SCH (09:32)
[2021-01-10] MEDS: CLINDAMYCIN 150MG CAPSULE PO SCH ×2 (09:32→20:19)
[2021-01-10] MEDS: OMEPRAZOLE 20 MG CAP PO SCH (09:33)
[2021-01-10] MEDS: VITAMIN D 1,000 INTERNATIONAL UNITS TABLET PO SCH (09:33)
[2021-01-10] MEDS: FUROSEMIDE 40 MG TAB PO SCH ×2 (09:33→16:40)
[2021-01-10] MEDS: glipiZIDE (GLUCOTROL) 5 MG TAB PO SCH ×2 (09:33→20:19)
[2021-01-10] MEDS: CHLORTHALIDONE 25 MG TAB PO SCH (09:33)
[2021-01-10] MEDS: NIFEdipine 30 MG XL TAB PO SCH (09:34)
--- NOTE | 2021-01-10 10:54 | IPN ---
PROGRESS NOTE DATE: 01/09/2021 SUBJECTIVE: The patient was seen and examined at the bedside today morning. She is afebrile, hemodynamically stable. She denies any active complaints at this time. She was dialyzed yesterday. She tolerated the hemodialysis procedure well. OBJECTIVE: VITAL SIGNS: Temperature is 97.4 degrees Fahrenheit, blood pressure is 142/58, pulse is 85, respiratory rate is 16, saturating 98% on room air. INTAKE AND OUTPUT: Urine output is not recorded. Ultrafiltration with hemodialysis was 1 liter, weight on the bed scale is not available. GENERAL: Patient is awake, alert and oriented x3 laying in bed in no apparent distress. HEAD AND NECK: Left eye is legally blind. Neck is supple. Right IJ tunneled hemodialysis catheter is noted. CARDIOVASCULAR: S1 and S2, regular rate. No edema of the bilateral lower extremities. RESPIRATORY: Chest is clear to auscultation bilaterally. Bilateral equal air entry. No rales or rhonchi. ABDOMEN: Soft, positive bowel sounds, nontender. No organomegaly. MUSCULOSKELETAL: No clubbing or cyanosis. She has a dressing on the right foot. MEDICATION MANAGER: No focal deficit apart from left eye blindness. LABORATORY DATA: CBC showed a WBC of 13, hemoglobin 8.7, platelets are 488, BMP showed a sodium of 132, potassium 4, chloride 98, bicarbonate 24, BUN 25, creatinine is 2.8. CURRENT INPATIENT MEDICATIONS: Patient's medications were all reviewed by myself. There is no significant change in the medications today. ASSESSMENT AND PLAN: 1. Endstage renal disease. Patient was dialyzed yesterday. Next hemodialysis will be on Sunday. Patient is awaiting placement as an outpatient for the dialysis center. 2. Anemia and endstage renal disease. Hemoglobin is stable and gradually improving. She is currently on Aranesp and Venofer with dialysis. 3. Hypertension. Blood pressure is controlled with current multidrug regimen. 4. Status post right big toe amputation. Patient reports that she had the amputation in [facility] and she was told that she had __ gangrene, currently she is on Clindamycin. White cell count is still high. If white cell count remains high, then she will be started on Vancomycin and Zosyn.
[2021-01-10 11:14] LABS: PTH INTACT 257.4 PG/ML (18.5-88.0)
[2021-01-10] MEDS: IRON SUCROSE 100MG 5ML VIAL (J1756 PER 1MG) IV SCH (12:07)
[2021-01-10 15:50] VITALS: BP 162/66
--- NOTE | 2021-01-10 17:26 | IPN ---
NEPHROLOGY PROGRESS NOTE DATE: 01/10/2021 SUBJECTIVE: The patient is seen and examined this morning at the bedside and later in the afternoon receiving her hemodialysis treatment. She denies any complaints. She is being set up again for outpatient hemodialysis. Her dialysis treatments in the hospital have been uneventful. OBJECTIVE: VITAL SIGNS: Temperature is 97.3, pulse 80, respiratory rate 16, blood pressure 118/58, saturating 98% on room air. INTAKE AND OUTPUT: Intake yesterday was one liter. Weight in the bed scale today is 64.4 kg. Goal dialysis removal is one liter. PHYSICAL EXAMINATION: GENERAL APPEARANCE: The patient is seen awake, alert, oriented, comfortable, sitting up in bed in no apparent distress. HEENT: Left eye is legally blind. NECK: Supple. Right IJ tunneled hemodialysis catheter is in place and in use. HEART: Regular, S1, S2. There is no leg edema. EXTREMITIES: Her right foot is in a waffle boot. LUNGS: Clear to auscultation. No crackles or rales. ABDOMEN: Soft and nontender. There are bowel sounds. EXTREMITIES: There is a waffle boot on the right foot. Her right big toe was absent. There is no leg edema. NEUROLOGICAL: Left eye is legally blind. Otherwise no focal deficits. SKIN: Warm and dry. LABORATORY STUDIES: Labs today show a white count of 13.2, hemoglobin 8.0, platelet count 438. Sodium 130, potassium 4.2, bicarbonate 23, BUN 42, glucose 353, parathyroid hormone level 257. CURRENT INPATIENT MEDICATIONS: The patient's medications were all reviewed by myself and I note no change as compared to yesterday. PROBLEMSASSESSMENT: 1. End-stage renal disease, on hemodialysis - The patient was dialyzed today because of scheduling issues in the Dialysis Unit. She is still waiting for placement in the outpatient dialysis center. Her electrolytes and volume status are all acceptable. 2. Poorly controlled type 2 diabetes mellitus her A1c was 9.7. I suggest to add insulin and I defer to the Primary Team. 3. Anemia in end-stage renal disease - hemoglobin is low at 8.0. I would transfuse if her hemoglobin falls below 8. She is presently receiving iron with dialysis along with Aranesp. 4. Secondary hyperparathyroidism of renal origin her parathyroid hormone level is at goal and her phosphorous is likewise controlled. She continues on Calcitriol. 5. Hypertension - The patient's blood pressures are well controlled with systolic 110's to 130's. She continues on Chlorthalidone, Metoprolol, Nifedipine and Lasix. 6. Right foot wound with known underlying peripheral arterial disease - status post right big toe amputation. I note that the patient is not interested in any inpatient surgical interventions for her coronary artery disease and she will follow up outpatient with Vascular Surgery.
--- NOTE | 2021-01-10 17:31 | IPNPDOC ---
Text Note Date of Service The patient was seen on 01/10/21. NOTE Subjective: Seen and examined at bedside. No acute overnight events reported. Patient has no new medical complaints this morning. Objective: PHYSICAL EXAMINATION: VITAL SIGNS: See below General; NAD, lying comfortably in bed, in good spirits HEENT: NC/AT, edentulous, EOMI Chest: CTA B/L, right anterior chest catheter in place, area is C/D/I Heart: +S1S2, RRR, -M/R/G Abd: soft, NT, +BS Ext: trace edema, right hallux dressings in place, right heel float boots in place Neuro: no gross focal deficits Psych: AAOx3 A/P: 60-year-old female with past medical history of end-stage renal disease on hemodialysis and medical noncompliance presents for hemodialysis due to missed H D sessions. #ESRD/HD - nephrology consultation - HD again today - working on authorization for outpatient HD - plan is for M/W/F #right foot wound - wound care - advanced wound care c/s appreciated - arterial US noted - severe disease - patient is not interested in inpatient surgical intervention - wishes to have o/p follow up #severe PAD - discussed with Dr. Rabago, recommending IR intervention - discussed with IR - recommending outpatient follow up - patient advised - patient wants o/p follow up, not interested in inpatient procedure at this time #DM - uncontrolled - A1C 9.7 - continue glipizide - carb consistent diet #GERD #Ischemic CVA 2. - asa, simvastatin #HTN - nifedipine, chlorthalidone, lopressor, lasix #Anemia - venofer, aranesp #DVT prophylaxis Disposition: pending outpatient setup for dialysis, wound care follow up, PFS/PT. Needs o/p setup also for IR for peripheral artery disease. VS,Fishbone, I+O VS, Fishbone, I+O Laboratory Tests 01/10/21 05:52 Vital Signs Date Time Temp Pulse Resp B/P (MAP) Pulse Ox O2 Delivery O2 Flow Rate FiO2 01/10/21 15:50 97.2 84 17 162/66 (98) 97 Room Air I&O- Last 24 Hours up to 6 AM 01/10/21 06:00 Intake Total 1020 ml Output Total 0 ml Balance 1020 ml CRISTOFER ELLIOTT MD Jan 10, 2021 17:31
[2021-01-10] MEDS: GABAPENTIN 300 MG CAP PO SCH (20:18)
[2021-01-10] MEDS: SIMVASTATIN 20 MG TAB PO SCH (20:18)
[2021-01-10 22:00] VITALS: BP 152/63
[2021-01-11 06:00] VITALS: BP 140/63
[2021-01-11 06:08] LABS: HEMATOCRIT 27.8 % (36.0-47.0); HEMOGLOBIN 8.5 g/dl (12.0-15.5); MEAN CORPUSCULAR HEMOGLOBIN 23.4 pg (27.0-33.0); MEAN CORPUSCULAR HGB CONC 30.6 g/dl (32.0-36.5); MEAN CORPUSCULAR VOLUME 76.4 fl (80.0-96.0); PLATELET COUNT, AUTOMATED 451 10^3/uL (150-450); RED BLOOD COUNT 3.64 10^6/uL (4.00-5.40); WHITE BLOOD COUNT 13.7 10^3/uL (4.0-10.0)
[2021-01-11 06:26] LABS: CREATININE FOR GFR 2.5 MG/DL (0.55-1.30); GLOMERULAR FILTRATION RATE 20.8 (>45); POTASSIUM SERUM 3.7 MEQ/L (3.5-5.1)
[2021-01-11] MEDS: MIRALAX *UNIT DOSE* 17GM PACKET PO SCH (09:00)
[2021-01-11] MEDS: ASPIRIN 81MG ENTERIC TABLET PO SCH (09:38)
[2021-01-11] MEDS: CLINDAMYCIN 150MG CAPSULE PO SCH ×2 (09:38→20:59)
[2021-01-11] MEDS: glipiZIDE (GLUCOTROL) 5 MG TAB PO SCH ×2 (09:41→20:56)
[2021-01-11] MEDS: OMEPRAZOLE 20 MG CAP PO SCH (09:41)
[2021-01-11] MEDS: FUROSEMIDE 40 MG TAB PO SCH ×2 (09:42→17:14)
[2021-01-11] MEDS: VITAMIN D 1,000 INTERNATIONAL UNITS TABLET PO SCH (09:42)
[2021-01-11] MEDS: NIFEdipine 30 MG XL TAB PO SCH (09:42)
[2021-01-11] MEDS: CHLORTHALIDONE 25 MG TAB PO SCH (09:43)
[2021-01-11] MEDS: METOPROLOL TART 25 MG TABLET PO SCH ×2 (09:44→20:57)
--- NOTE | 2021-01-11 13:01 | IPNPDOC ---
Text Note Date of Service The patient was seen on 01/11/21. NOTE Subjective: Patient is a 60-year-old female with a PMHx of ESRD on HD, Ischemic CVA, HTN, DM2, Anemia, GERD, who presented to the ER after noncompliance with hemodialysis. Patient was admitted to hospitalist service for further evaluation and treatment. Patient was seen and examined at the bedside. Patient has been out of bed and ambulating to the chair with assistance. Physical therapy. She denies any chest pain, shortness breath, palpitations, nausea, vomiting, abdominal pain or diarrhea.. She does report some pain of her right foot. Objective: Vitals (See below) General: Sitting up in chair, appears to be comfortable, not in any acute distress, is awake, alert, oriented 3 HEENT: NC, AT CVS: +S1S2 Lungs: Fair air entry b/l, -w/r/r Abdomen: Soft, ND, NT Extremities: - Edema, - Calf tenderness, right foot dressing in place Imaging: Arterial US 01/07: Extensive atherosclerotic disease as above. Bilateral common femoral artery stenoses. Bilateral superficial femoral artery occlusions. Distal posterior tibial occlusion on the right. Assessment and plan: ESRD on HD - Patient is noncompliant with dialysis - Nephrology consultation; we appreciate their input - PFS working on authorization for outpatient HD - plan is for M/W/F Right foot wound - likely 2/2 severe PAD - Reports R foot pain - No fevers recently - Leukocytosis persists - Imaging noted above - Will get XR foot - c/w wound care - Advanced wound care on consult; appreciate their recommendations - Imaging studies from above were originally discussed with Dr. Fitch; ad vised outpatient follow up - Will get podiatry evaluation currently DM2 - Uncontrolled - A1C 9.7 - c/w Glipizide Ischemic CVA 2 - c/w ASA, Simvastatin HTN - BP well controlled - c/w Nifedipine, Chlorthalidone, Metoprolol, Furosemide Anemia - c/w Venofer, Aranesp GERD - c/w Omeprazole DVT prophylaxis - Will start Heparin Disposition: - Pending outpatient setup for dialysis - Will be evaluated by podiatry today VS,Bibi, I+O VS, Bibi, I+O Laboratory Tests 01/11/21 05:26 Vital Signs Date Time Temp Pulse Resp B/P (MAP) Pulse Ox O2 Delivery O2 Flow Rate FiO2 01/11/21 09:44 83 170/65 01/11/21 06:00 99.0 16 100 Room Air I&O- Last 24 Hours up to 6 AM 01/11/21 06:00 Intake Total 2100 ml Output Total 1000 ml Balance 1100 ml HANS HERRERA MD Jan 11, 2021 13:01
--- NOTE | 2021-01-11 13:16 | REP ---
INDICATION: Evaluate for osteomyelitis COMPARISON: 01/05/2011. TECHNIQUE: AP and lateral right foot. FINDINGS: Again noted is prior amputation at the level of the 1st metatarsophalangeal joint. There is no fracture or dislocation. No new area of osseous destruction or periosteal reaction is seen. There are diffuse vascular calcifications in the soft tissues. IMPRESSION: Stable exam. <Electronically signed by Jitendra Boucher > 01/11/21 [id number]
[2021-01-11 14:00] VITALS: BP 137/55
[2021-01-11] MEDS: HEPARIN SOD (PORCINE) 5000UNITS/ML 1ML VIAL/SYRINGE SQ SCH ×2 (15:32→20:59)
--- NOTE | 2021-01-11 16:45 | CR ---
CONSULTATION DATE: 01/11/2021 REASON FOR CONSULTATION: Foot ulceration. Nicole is a 60-year-old diabetic female who was admitted due to end-stage renal disease requiring dialysis. She has history of foot ulcerations. She has history of recent amputation of her right hallux, presumably due to wet gangrene in [place]. The toe was removed open-amputation style. There is exposed metatarsal head in the wound. MEDICAL HISTORY: Significant for: 1. Diabetes. 2. Gastroesophageal reflux disease (GERD). 3. Ischemic cerebrovascular accident (CVA). 4. Hypertension. 5. Anemia. 6. End-stage renal disease, on hemodialysis. FAMILY HISTORY: Noncontributory. SOCIAL HISTORY: Denies alcohol or tobacco. ALLERGIES: No known drug allergies (NKDA). REVIEW OF SYSTEMS: Negative for nausea, vomiting, fever, or chills. Vital signs are reviewed. Temperature 98.5. Labs are reviewed. White blood cell count is 13.7. LOWER EXTREMITY EXAMINATION: There is a heel ulcer with some fibrous tissue. There is an open ulcer at the hallux amputation site with some desiccated metatarsal head exposed in the bone. ASSESSMENT: A 60-year-old diabetic female with open ulceration with exposed bone. PLAN: We will bring her to the operating room for removal of metatarsal head and debridement of heel. Nothing by mouth at midnight.
[2021-01-11] MEDS: GABAPENTIN 300 MG CAP PO SCH (20:56)
[2021-01-11] MEDS: SIMVASTATIN 20 MG TAB PO SCH (20:56)
[2021-01-11 22:00] VITALS: BP 117/93
--- NOTE | 2021-01-11 22:44 | IPN ---
PROGRESS NOTE DATE: 01/11/2021 SUBJECTIVE: Patient is seen and examined this morning at the bedside. She offers no complaints. She was dialyzed yesterday without any issues. She has been set up for outpatient hemodialysis on a Sunday, Sunday, Sunday schedule with a chair time of 6:00 a.m. and I discussed the same with her. She complains of unchanged pain in the right foot. OBJECTIVE: VITAL SIGNS: Temperature is 98.5, pulse 82, respiratory rate 17, blood pressure 137/55, saturating 97% on room air. INTAKE AND OUTPUT: Intake yesterday was 1,850. Dialysis removed 1 liter. There were also four incontinent voids and four bowel movements. Weight in the bed scale today is 63.7 kg. PHYSICAL EXAMINATION: GENERAL: Patient is seen sitting in bed, head of the bed elevated, awake, alert, oriented, comfortable, in no distress. HEENT: Extraocular muscles are intact. Tongue is moist. Neck is supple. There is a tunneled catheter present with dressing. HEART: Sounds are regular, S1, S2. There is no leg edema. LUNGS: Show symmetric air entry. No crackle, rale or rhonchus. ABDOMEN: Soft and nontender. EXTREMITIES: She has a poorly developed fistula in the left arm. There is no edema in the legs. There are dressings on the right foot. NEUROLOGIC: She is awake, alert, oriented, at baseline mentation. No focal deficits. LABORATORY STUDIES: Today's labs show white count 13.7, hemoglobin 8.5, platelets 451,000. Sodium 134, potassium 3.7, bicarbonate 25. PTH 257. IMAGING STUDIES: Foot x-ray done today showed no fracture and no dislocation. CURRENT INPATIENT MEDICATIONS: Patient's medications were all reviewed by myself and no changes noted other than the patient has been started on Heparin 5,000 units subcutaneous every 8 hours. PROBLEMS: 1. End-stage renal disease on hemodialysis: Patient has been set up for outpatient dialysis on a Sunday, Sunday, Sunday schedule with a chair time of 6:00 a.m. Her electrolytes and volume status are acceptable. Continue current dialysis prescription. 2. Anemia secondary to chronic renal failure: Hemoglobin is suboptimal but stable at 8.5. She is receiving I.V. iron and Aranesp with dialysis. 3. Poorly controlled type 2 diabetes mellitus: A1C 9.7. She continues on Glipizide. 4. Hypertension: Blood pressures are well controlled with the current regimen. No changes are being made. 5. Secondary hyperparathyroidism of renal origin: Parathyroid hormone level is at goal. Continue Calcitriol.
[2021-01-12 06:00] VITALS: BP 145/67
[2021-01-12 06:03] LABS: HEMATOCRIT 29.4 % (36.0-47.0); MEAN CORPUSCULAR HEMOGLOBIN 23.6 pg (27.0-33.0); MEAN CORPUSCULAR HGB CONC 30.6 g/dl (32.0-36.5); MEAN CORPUSCULAR VOLUME 77.2 fl (80.0-96.0); PLATELET COUNT, AUTOMATED 449 10^3/uL (150-450); RED BLOOD COUNT 3.81 10^6/uL (4.00-5.40); WHITE BLOOD COUNT 12.9 10^3/uL (4.0-10.0)
[2021-01-12] MEDS: HEPARIN SOD (PORCINE) 5000UNITS/ML 1ML VIAL/SYRINGE SQ SCH ×3 (06:20→21:06)
[2021-01-12 06:29] LABS: CALCIUM LEVEL 8.5 MG/DL (8.8-10.2); CREATININE FOR GFR 3.14 MG/DL (0.55-1.30); POTASSIUM SERUM 3.8 MEQ/L (3.5-5.1)
[2021-01-12] MEDS: ASPIRIN 81MG ENTERIC TABLET PO SCH (07:47)
[2021-01-12] MEDS: NIFEdipine 30 MG XL TAB PO SCH (07:48)
[2021-01-12] MEDS: OMEPRAZOLE 20 MG CAP PO SCH (07:48)
[2021-01-12] MEDS: METOPROLOL TART 25 MG TABLET PO SCH ×2 (07:49→21:06)
[2021-01-12] MEDS: FUROSEMIDE 40 MG TAB PO SCH ×2 (07:49→19:07)
[2021-01-12] MEDS: VITAMIN D 1,000 INTERNATIONAL UNITS TABLET PO SCH (07:49)
[2021-01-12] MEDS: CLINDAMYCIN 150MG CAPSULE PO SCH ×2 (07:50→21:04)
[2021-01-12] MEDS: CHLORTHALIDONE 25 MG TAB PO SCH (07:50)
[2021-01-12] MEDS: MIRALAX *UNIT DOSE* 17GM PACKET PO SCH (07:50)
[2021-01-12] MEDS: glipiZIDE (GLUCOTROL) 5 MG TAB PO SCH ×2 (07:50→21:06)
[2021-01-12] MEDS ORDERED: SODIUM CHLORIDE 0.9% 1000ML IV PRN (07:55)
[2021-01-12] MEDS: IRON SUCROSE 100MG 5ML VIAL (J1756 PER 1MG) IV SCH (08:27)
--- NOTE | 2021-01-12 12:02 | IPNPDOC ---
Text Note Date of Service The patient was seen on 01/12/21. NOTE Subjective: Patient is a 60-year-old female with a PMHx of ESRD on HD, Ischemic CVA, HTN, DM2, Anemia, GERD, who presented to the ER after noncompliance with hemodialysis. Patient was admitted to hospitalist service for further evaluation and treatment. Patient was seen and examined at the bedside. Patient was receiving dialysis. Upon my evaluation. She denied any chest pain, shortness of breath, palpitations or cough. Has not experiencing any nausea, vomiting or abdominal pain. Denies any diarrhea. She reports her right foot feels relatively fine today. Objective: Vitals (See below) General: Patient is lying in bed receiving dialysis, does not appear to be in any acute distress, comfortable, awake and alert, oriented 3 HEENT: NC, AT CVS: +S1S2 Lungs: Fair air entry b/l, no appreciable wheezing, rhonchi or rales Abdomen: Soft, nondistended and nontender Extremities: No evidence of edema, right foot with dressing in place and heel boot Imaging: Arterial US 01/07: Extensive atherosclerotic disease as above. Bilateral common femoral artery stenoses. Bilateral superficial femoral artery occlusions. Distal posterior tibial occlusion on the right. XR R foot 01/11: Stable exam. Assessment and plan: ESRD on HD - Patient is noncompliant with dialysis - Nephrology consultation; we appreciate their input - PFS has established outpatient HD (M/W/) with transportation Right foot wound - likely 2/2 severe PAD - Patient remains afebrile and hemodynamically stable - Leukocytosis persists - Imaging noted above - Advanced wound care on consult; appreciate their recommendations - Imaging studies from arterial US were originally discussed with Dr. Fitch; advised outpatient follow up - Podiatry on consultation; plan for surgical intervention today - c/w Clindamycin DM2 - Uncontrolled - A1C 9.7 - c/w Glipizide Ischemic CVA 2 - c/w ASA, Simvastatin HTN - BP well controlled - c/w Nifedipine, Chlorthalidone, Metoprolol, Furosemide Anemia - c/w Venofer, Aranesp GERD - c/w Omeprazole DVT prophylaxis - c/w Heparin Disposition: - OR intervention today - PT / OT evaluation post-op - Outpatient dialysis / transport established for discharge VS,Bibi, I+O VS, Fishbone, I+O Laboratory Tests 01/12/21 05:24 Vital Signs Date Time Temp Pulse Resp B/P (MAP) Pulse Ox O2 Delivery O2 Flow Rate FiO2 01/12/21 07:49 77 145/67 01/12/21 06:00 98.9 18 97 Room Air I&O- Last 24 Hours up to 6 AM 01/12/21 06:00 Intake Total 1000 ml Output Total 0 ml Balance 1000 ml HANS HERRERA MD Jan 12, 2021 12:02
[2021-01-12 13:37] VITALS: BP 120/92
[2021-01-12] MEDS ORDERED: ONDANSETRON 4MG/2ML VIAL IV PRN ×2 (14:30→18:15)
[2021-01-12] MEDS ORDERED: LIDOCAINE 1% MDV 20ML VIAL As Ordered ONE (16:33)
[2021-01-12] MEDS ORDERED: BUPIVACAINE HCL 0.5% 30 ML VIAL As Ordered ONE (16:33)
[2021-01-12] MEDS ORDERED: LIDOCAINE 2% 100MG/5ML SDV (FOR ANES.) As Ordered ONE (16:42)
[2021-01-12] MEDS ORDERED: propofoL 200 MG/20 ML VIAL As Ordered ONE (16:42)
[2021-01-12] MEDS ORDERED: fentaNYL 100 MCG/2 ML INJECTION (J3010) As Ordered ONE (16:43)
[2021-01-12] MEDS ORDERED: MIDAZOLAM INJ 2MG/2ML VIAL (J2250 PER 1MG) As Ordered ONE (16:43)
[2021-01-12] MEDS ORDERED: dexameTHASONE 4 MG/ML 1ML VIAL (J1100 PER 1MG) As Ordered ONE (16:43)
[2021-01-12] MEDS ORDERED: ONDANSETRON 4MG/2ML VIAL As Ordered ONE (16:43)
--- NOTE | 2021-01-12 17:21 | IPN ---
NEPHROLOGY PROGRESS NOTE DATE: 01/12/2021 SUBJECTIVE: Lilliam is seen and examined this morning in the Hemodialysis Unit receiving her maintenance treatment. She denies any complaints. She denies any shortness of breath, chest pain. No nausea, vomiting, diarrhea. She reports her right foot pain is controlled. She is scheduled for the O.R. later this afternoon for surgical intervention for her right foot wound. Her dialysis treatment has been uneventful. OBJECTIVE: PHYSICAL EXAMINATION: VITAL SIGNS: Temperature 97.8, pulse 79, respiratory rate 16, blood pressure 120/92, saturating 98% on room air. INTAKE AND OUTPUT: Intake yesterday was 1,250. Dialysis today removed 1.5 liters. Weight in the bed scale today was 63.8 kg. GENERAL APPEARANCE: The patient is seen awake, alert, oriented, in dialysis receiving her treatment, comfortable. HEENT: The extraocular muscles are intact. Tongue is moist. NECK: Supple. Jugular veins are not elevated. HEART: Regular, S1, S2. There is no leg edema. There is no dependent edema. LUNGS: Symmetric air entry. No crackles or rales. ABDOMEN: Soft and nontender. EXTREMITIES: The right foot is in a dressing with a heel boot. There is otherwise no edema in the legs. NEUROLOGICAL: She is oriented x3, at baseline mentation. SKIN: Warm and dry. The right foot wound was not examined. LABORATORY STUDIES: White count 12.9, hemoglobin 9.0, platelet count 449. Sodium 132, potassium 3.8, bicarbonate 25, glucose 227. CURRENT INPATIENT MEDICATIONS: The patient's medications were reviewed by myself. Desitin topical to the buttocks was ordered today. Zofran p.r.n. was ordered. The remainder medications are unchanged from yesterday. PROBLEMS: 1. End-stage renal disease, on hemodialysis - The patient has been set up for outpatient hemodialysis on a Sunday, Sunday, Sunday schedule at 6:00 a.m. She was dialyzed today. Her treatment has been uneventful. Her volume status and electrolytes are acceptable. 1.5 liters were removed. Her next dialysis will be on Sunday. 2. Uncontrolled type 2 diabetes mellitus, managed by the Primary Team she is only on Glipizide. Sugars have mostly been in the 200's. I am not sure if she takes insulin as an outpatient or not. She will follow up with her Primary Care who manages her diabetes. 3. Hypertension - blood pressures are well controlled. There was no hypotension of hemodialysis. She still makes urine. She is on a diuretic. No changes are being made to the antihypertensive regimen. 4. Anemia related to chronic renal failure and iron deficiency she is receiving Venofer and Aranesp with dialysis. 5. Secondary hyperparathyroidism of renal origin she continues on Calcitriol twice per week. Her parathyroid hormone level is at goal along with her phosphorous level. 6. Right foot wound in the setting of severe peripheral arterial disease - The patient has seen Vascular Surgery as an outpatient. There is ongoing leukocytosis but she has been afebrile. She is on Clindamycin, managed by the Primary Team and she is pending O.R. today for surgical intervention with Podiatry.
[2021-01-12] MEDS ORDERED: PERCOCET 5MG/325MG TAB PO PRN (18:15)
--- NOTE | 2021-01-12 18:27 | RO ---
OPERATIVE NOTE DATE OF OPERATION: 01/12/2021 PREOPERATIVE DIAGNOSIS: Right foot open ulcer with exposed bone. POSTOPERATIVE DIAGNOSIS: Right foot open ulcer with exposed bone. PROCEDURE: Right foot excisional wound debridement and right first metatarsal head excision. SURGEON: Armand Crisostomo DPM SUPERVISOR TELEPH[employer] ANSWERING SERVICE: ANESTHESIA: Monitored anesthesia care. Preop injection of 20 mL 1:1 mix of 1% Lidocaine plain and 0.5% Marcaine plain. ESTIMATED BLOOD LOSS: Minimal. MATERIALS: 3-0 nylon. INJECTABLES: None. SPECIMEN: Right first metatarsal head. COMPLICATIONS: None. CONDITION: Stable. INDICATIONS: Ms. Rivera is a 60-old female who is admitted with open ulceration with exposed bone and a heel ulceration. Decision was made to bring her to the OR for wound debridement as well as removal of exposed bone. The patient's site and side were identified and marked preoperatively in the ER. Consent was reviewed and obtained. The risks, complications, and alternatives to the procedure were explained to the patient in detail, and all questions were answered. DESCRIPTION OF PROCEDURE: The patient was brought to the operating room on the stretcher in the supine position. Monitored anesthesia care was delivered by the anesthesia team. Preop injection of 20 mL of 1:1 mix of 1% Lidocaine plain and 0.5% Marcaine plain was injected in the right foot. The right foot was prepped and draped in normal sterile fashion. No tourniquet was used during the procedure. Attention was first paid to the right lateral heel ulcer. There was some necrotic, nonviable tissue. This was removed using a dermal curet in excisional fashion including subcutaneous tissue and fat. Next attention was paid to the hallux amputation site. The wound was inspected. Exposed metatarsal head was present. A dorsal incision was made for further exposure of the metatarsal head. Using a sagittal saw, the metatarsal head was excised in total. There was some residual capsule in the sesamoids were removed using tenotomy scissors. The site was irrigated with normal saline and partial wound closure was performed with 3-0 nylon. Sterile dressings were applied. The patient was brought to PACU with vital signs stable and neurovascular status intact. She will be readmitted to the floor for continued monitoring.
[2021-01-12 19:08] VITALS: BP 130/88
[2021-01-12] MEDS ORDERED: VITAMIN A & D OINTMENT 60GM TOP SCH (21:00)
[2021-01-12] MEDS: GABAPENTIN 300 MG CAP PO SCH (21:04)
[2021-01-12] MEDS: SIMVASTATIN 20 MG TAB PO SCH (21:04)
[2021-01-12] MEDS: DIAPER RELIEF PASTE (DESITIN) 60GM TOP SCH (21:07)
[2021-01-12 22:00] VITALS: BP 132/56
[2021-01-13 06:00] VITALS: BP 141/63
[2021-01-13] MEDS: HEPARIN SOD (PORCINE) 5000UNITS/ML 1ML VIAL/SYRINGE SQ SCH (06:12)
[2021-01-13 06:48] LABS: HEMATOCRIT 30.2 % (36.0-47.0); HEMOGLOBIN 9.1 g/dl (12.0-15.5); MEAN CORPUSCULAR HEMOGLOBIN 23.5 pg (27.0-33.0); MEAN CORPUSCULAR HGB CONC 30.1 g/dl (32.0-36.5); PLATELET COUNT, AUTOMATED 428 10^3/uL (150-450); RED BLOOD COUNT 3.87 10^6/uL (4.00-5.40); WHITE BLOOD COUNT 13.1 10^3/uL (4.0-10.0)
[2021-01-13 07:08] LABS: CREATININE FOR GFR 2.62 MG/DL (0.55-1.30); GLOMERULAR FILTRATION RATE 19.7 (>45)
[2021-01-13] MEDS: ASPIRIN 81MG ENTERIC TABLET PO SCH (08:16)
[2021-01-13] MEDS: CLINDAMYCIN 150MG CAPSULE PO SCH (08:16)
[2021-01-13] MEDS: METOPROLOL TART 25 MG TABLET PO SCH (08:18)
[2021-01-13] MEDS: CHLORTHALIDONE 25 MG TAB PO SCH (08:18)
[2021-01-13 08:19] VITALS: BP 164/70
[2021-01-13] MEDS: NIFEdipine 30 MG XL TAB PO SCH (08:19)
[2021-01-13] MEDS: OMEPRAZOLE 20 MG CAP PO SCH (08:19)
[2021-01-13] MEDS: VITAMIN D 1,000 INTERNATIONAL UNITS TABLET PO SCH (08:19)
[2021-01-13] MEDS: glipiZIDE (GLUCOTROL) 5 MG TAB PO SCH (08:19)
[2021-01-13] MEDS: FUROSEMIDE 40 MG TAB PO SCH (08:20)
[2021-01-13] MEDS: DIAPER RELIEF PASTE (DESITIN) 60GM TOP SCH (08:23)
[2021-01-13] MEDS: MIRALAX *UNIT DOSE* 17GM PACKET PO SCH (08:23)
[2021-01-13] MEDS ORDERED: ACETAMINOPHEN TAB 650MG DOSE (2X325MG) PO PRN (08:25)
--- NOTE | 2021-01-13 10:05 | DS.PDOC ---
Discharge Summary General Date of Admission Jan 06, 2021 at 11:29 Date of Discharge 01/13/2021 Discharge Summary PROCEDURES PERFORMED DURING STAY: Right foot excisional wound debridement and right first metatarsal head excision with Dr. Crisostomo on 01/12/2021 ADMITTING DIAGNOSES / DISCHARGE DIAGNOSES: ESRD on HD Right foot wound - likely 2/2 severe PAD DM2 Ischemic CVA 2 HTN Anemia GERD DVT prophylaxis COMPLICATIONS/CHIEF COMPLAINT: ESRD on HD / Missed HD HISTORY OF PRESENT ILLNESS: Patient is a 60-year-old female with a PMHx of ESRD on HD, Ischemic CVA, HTN, DM2, Anemia, GERD, who presented to the ER after noncompliance with hemodialysis. Patient was admitted to hospitalist service for further evaluation and treatment. Patient was seen and examined at bedside. Currently denies any chest pain, shortness of breath, palpitations, nausea, vomiting, abdominal pain, denies any diarrhea. Reports that her right foot is achy provide pain medication this morning; Tylenol. HOSPITAL COURSE: ESRD on HD - Patient is noncompliant with dialysis - Nephrology consultation; we appreciate their input - PFS has established outpatient HD (M/W/F) with transportation - Will have outpatient follow-up with nephrology within the next 7 days Right foot wound - likely 2/2 severe PAD - Afebrile and remains hemodynamically stable - Leukocytosis stable - Imaging noted above - s/p Right foot excisional wound debridement and right first metatarsal head excision with Dr. Crisostomo on 01/12/2021 - Advanced wound care / Podiatry on consultation; appreiciate their input - Arterial US results were originally discussed with Dr. Fitch; advised outpatient follow up - c/w Clindamycin on discharge - Will have outpatient follow-up with Dr. Rabago and Dr. Crisostomo within the next 7 days - Will have outpatient follow-up with Dr. Fitch within the next 7 days DM2 - Uncontrolled - A1C 9.7 - c/w Glipizide on discharge Ischemic CVA 2 - c/w ASA, Simvastatin HTN - BP well controlled - c/w Nifedipine, Chlorthalidone, Metoprolol, Furosemide Anemia - c/w Venofer, Aranesp GERD - c/w Omeprazole DVT prophylaxis - c/w Heparin DISCHARGE MEDICATIONS: Please see below. ALLERGIES: Please see below. PHYSICAL EXAMINATION ON DISCHARGE: Vitals (See below) General: Patient sitting up in bed, appears to be comfortable, not in acute distress, is awake, alert, oriented 3 HEENT: Normocephalic and atraumatic CVS: +S1S2 Lungs: There appears to be fair air entry bilaterally without evidence of w heezing, crackles rhonchi Abdomen: Again, abdomen is soft without any appreciated distention or tenderness Extremities: Right foot with dressing in place LABORATORY DATA: Please see below. IMAGING: Arterial US 01/07: Extensive atherosclerotic disease as above. Bilateral common femoral artery stenoses. Bilateral superficial femoral artery occlusions. Distal posterior tibial occlusion on the right. XR R foot 01/11: Stable exam. ACTIVITY: [As tolerated]. DISCHARGE PLAN: Follow-up with primary care provider, Dr. Crisostomo, Dr. Rabago and Dr. Fitch within the next 7 days Remain compliant with treatment plan and medications Return to the ER if you experience any problems DISPOSITION: Home with services Son to provide 19/02 care DISCHARGE CONDITION: [Stable]. TIME SPENT ON DISCHARGE: 35 minutes. Vital Signs/I&Os Vital Signs Date Time Temp Pulse Resp B/P (MAP) Pulse Ox O2 Delivery O2 Flow Rate FiO2 01/13/21 08:19 164/70 01/13/21 06:00 97.8 77 18 99 Room Air I&O- Last 24 Hours up to 6 AM 01/13/21 06:00 Intake Total 545 ml Output Total 1500 ml Balance -955 ml Laboratory Data Labs 24H Laboratory Tests 2 01/13/21 06:35: Nucleated Red Blood Cells % (auto) 0.0, Anion Gap 5L, Glomerular Filtration Rate 19.7L, Calcium Level 9.0 CBC/BMP Laboratory Tests 01/13/21 06:35 Discharge Medications Scheduled Aspirin (Aspirin EC) 81 Mg Tablet., 81 MG PO DAILY, (Reported) Calcitriol (Rocaltrol) 0.25 Mcg Capsule, 0.25 MCG PO 2XW, (Reported) MON/FRI Chlorthalidone (Chlorthalidone) 25 Mg Tab, 25 MG PO DAILY, (Reported) Cholecalciferol (Vitamin D3) (Vitamin D3) 1,000 Unit Tablet, 1,000 UNITS PO DAILY, (Reported) Clindamycin Hcl (Cleocin HCl) 300 Mg Capsule, 600 MG PO BID, (Reported) FOR 14 DAYS, PT STARTED A COUPLE DAYS AGO PER FAMILY Furosemide (Furosemide) 40 Mg Tablet, 40 MG PO BID, (Reported) TAKES AM/AFTERNOON Gabapentin (Gabapentin) 300 Mg Cap, 300 MG PO QHS, (Reported) Glipizide (Glipizide) 5 Mg Tablet, 5 MG PO BID, (Reported) Insulin Glargine,Hum.rec.anlog (Basaglar Kwikpen U-100) 100 Unit/1 Ml Insuln.pen, 20 UNITS SQ BID, (Reported) Metoprolol Tartrate (Metoprolol Tartrate) 50 Mg Tab, 75 MG PO BID, (Reported) Nifedipine (Nifedipine ER) 30 Mg Tablet.er, 30 MG PO DAILY, (Reported) Nifedipine (Nifedipine ER) 90 Mg Tab.er.24, 90 MG PO DAILY, (Reported) Omeprazole (Omeprazole) 20 Mg Cap, 20 MG PO DAILY, (Reported) Polyethylene Glycol 3350 (Miralax) 119 Gm Powder, 17 GM PO DAILY, (Reported) dilute in 8 ounces of water or juice Simvastatin (Simvastatin) 20 Mg Tab, 20 MG PO QHS, (Reported) Allergies Coded Allergies: No Known Allergies (Unverified , 09/04/19) HANS HERRERA MD Jan 13, 2021 10:05
--- NOTE | 2021-01-13 14:47 | IPN ---
PROGRESS NOTE DATE: 01/13/2021 SUBJECTIVE: Patient seen and examined this morning at the bedside. She is discharge pending. She offers no complaints. She underwent right foot excisional wound debridement and right 1st metatarsal head excision with Dr. Crisostomo yesterday. She is set up for outpatient dialysis on Sunday, Sunday, Sunday schedule at 6 a.m., and the patient tells me that she plans to attend and will try to be more compliant than she has been in the past. VITAL SIGNS: Temperature 97.8, pulse 77, respiratory rate 18, blood pressure 141/63, saturating 99% on room air. Intake yesterday was not fully recorded. Dialysis yesterday removed 1.5 liters. Weight in the bed scale is not recorded. GENERAL: Patient is seen awake, alert, oriented, comfortable, sitting in bed. Head of the bed elevated. In no distress. Extraocular muscles are intact. Tongue is moist. Neck is supple. Jugular veins are not elevated. HEART: Sounds are realgar, S1, S2. There is no leg edema. There is no dependent edema. LUNGS: Clear to auscultation bilaterally. No crackle or rale. ABDOMEN: Soft and nontender. EXTREMITIES: Show no edema or cyanosis. The right foot is bandaged and has dressings. DIALYSIS ACCESS: There is a tunneled hemodialysis catheter present in the right chest wall with clean dressing. NEUROLOGIC: She is awake, alert, oriented times three at baseline mentation. LABORATORY DATA: White count 13.1, hemoglobin 9.1, platelets 428. Sodium 131, potassium 4.0. INPATIENT MEDICATIONS: She got a dose of Tylenol as needed. Remainder of medications is unchanged as compared to yesterday. PROBLEMS: 1. End-stage renal disease, on hemodialysis. Patient has been set up for outpatient dialysis on Sunday, Sunday, Sunday schedule at a 6 a.m. She has previously been poorly compliant, and I did discuss with her at the bedside today regarding need for adequate dialysis and compliance with a renal diet and also need for followup with vascular surgery as an outpatient for arteriovenous access placement, as she is still dialyzing with Perm-A-Cath unfortunately. 2. Uncontrolled type 2 diabetes with diabetic neuropathy, nephropathy, and peripheral vascular disease, managed by the primary care physician, and she is on glipizide. 3. Hypertension. Blood pressures are acceptably controlled on current regimen, and I am making no changes. She still has residual renal function and makes urine. We will continue her on diuretics. 4. Anemia related to iron deficiency and end-stage renal disease. She is receiving Venofer with dialysis and Aranesp as well. 5. Secondary hyperparathyroidism of renal orgin. She continues on calcitriol and vitamin D. 6. Peripheral vascular disease and right foot wound. She is going to followup with wound care, podiatry, and interventional radiology as an outpatient. Primary team has treated her with antibiotics, and she is status post right foot excisional wound debridement and right 1st metatarsal head excision.
[2021-01-13] MEDS ORDERED: glipiZIDE (GLUCOTROL) 5 MG TAB PO SCH (18:00)
== END 2021-01-13 15:18 | disposition home health service (06) | DRG 314 ==
LOC: M ED 08:58 → M ED INP 11:29 → ENRESERV 11:38 → M MSPAV 16:15
PROVIDERS: ADMIT Internal Medicine; ATTEND Internal Medicine
PROC: 0JBQ3ZZ Excision of Right Foot Subcutaneous Tissue and Fascia, Percutaneous Approach (ICD-10-PCS; 2021-01-12)
PROC: 0Y6P0Z3 Detachment at Right 1st Toe, Low, Open Approach (ICD-10-PCS; principal; 2021-01-12 09:00)
DX: E11.52 Type 2 diabetes mellitus with diabetic peripheral angiopathy with gangrene (principal); N18.6 End stage renal disease; I12.0 Hypertensive chronic kidney disease with stage 5 chronic kidney disease or end stage renal disease; E11.22 Type 2 diabetes mellitus with diabetic chronic kidney disease; E11.621 Type 2 diabetes mellitus with foot ulcer; N25.81 Secondary hyperparathyroidism of renal origin; Z91.19 Patient's noncompliance with other medical treatment and regimen; K21.9 Gastro-esophageal reflux disease without esophagitis; Z91.15 Patient's noncompliance with renal dialysis; Z79.82 Long term (current) use of aspirin; Z79.899 Other long term (current) drug therapy; Z79.4 Long term (current) use of insulin; Z86.73 Personal history of transient ischemic attack (TIA), and cerebral infarction without residual deficits; D63.1 Anemia in chronic kidney disease

== ENCOUNTER → 2021-01-18 | Outpatient (POV) | payer OTHER ==
[~2021-01-18] VITALS: Ht 167.6 cm; Wt 83.6 kg
[~2021-01-18] MED LIST changes: +ASPI81TA26 PO; +D31000TA2 PO; +GLIP5TAB8 PO; +MIRA3350 PO; +NIFE1TAB50 PO
[2021-01-18 14:09] VITALS: BP 168/76
--- NOTE | 2021-01-20 10:23 | IRCOV ---
[facility] IR Consult Office Visit IR Consult Office Visit DATE: Jan 18, 2021 REASON FOR CONSULTATION/CHIEF COMPLAINT: Right hallux amputation site nonhealing. HISTORY OF PRESENT ILLNESS: 60-year-old female, with diabetes, hypertension and end-stage renal disease, on hemodialysis, [place], " because it turned black". She followed up with Dr. Crisostomo, who found exposed bone at the metatarsal head and a heel ulcer. He performed further surgery on her right lower extremity, removing the metatarsal head and debrided the right heel ulcer. However, there is ongoing ulceration at the amputation site and the site is not healing. Patient denies intermittent claudication or rest pain in the legs. She denies leg swelling. She is known to have extensive left lower extremity peripheral vascular disease with complete occlusion of the SFA and is reliant on flow from the profunda femoris and collaterals in the thigh. No new left lower extremity pain or ulcerations. Patient has suffered one prior stroke with mild left-sided residual weakness. No prior heart attacks. No chest pain, shortness of breath, orthopnea or paroxysmal nocturnal dyspnea. No prior lower extremity bypass surgery. ALLERGIES: Please see below. HOME MEDICATIONS: Please see below. PAST MEDICAL HISTORY: Diabetes GERD Stroke Hypertension Anemia End-stage renal disease on hemodialysis through right PermCath PAST SURGICAL HISTORY: Prior left lower extremity angiography. Right-sided PermCath Fistula never matured FAMILY HISTORY: Noncontributory. SOCIAL HISTORY: Nonsmoker. Denies alcohol or drugs. REVIEW OF SYSTEMS: Otherwise negative. PHYSICAL EXAMINATION: VITAL SIGNS: Please see below. GENERAL APPEARANCE: Appears well. Comfortable at rest. HEENT: No scleral icterus. RESPIRATORY: Normal breathing at rest. CARDIOVASCULAR: Normal rate. ABDOMEN: Soft nontender. EXTREMITIES: Left lower extremity: no edema. Skin color and temperature normal to touch. No ulcerations. No amputation sites. No gangrene. Femoral pulse 2+ popliteal pulse + DP/PT +. Motor 4 out of 5. Sensation intact. Right lower extremity: Mild foot edema. Skin color and temperature normal to touch. Right hallux amputation site dressed and bandaged. Femoral pulse 2+ popliteal pulse + DP/PT nonpalpable. Motor 5 out of 5. Sensation 2 out of 5. NEUROLOGICAL: Alert and oriented. PSYCHIATRIC: Appropriate to circumstance. LABORATORY DATA: 01/13/2021 hemoglobin 9.1 hematocrit 30.2 WBC 13.1 platelets 428. Sodium 131 potassium 4.0 BUN 25 creatinine 2.6 to GFR 19.7 hemoglobin A1c 9.7 Imaging: I personally reviewed the bilateral lower extremity arterial ultrasound performed 01/07/2021. There is severe right common femoral artery stenosis. Multifocal stenosis or occlusion in the superficial femoral artery with poor flow in the distal SFA, parvus tardus flow in the popliteal artery and below- knee runoff. Right lower extremity AMY 0.6 ASSESSMENT/PLAN: 60-year-old female with poorly controlled diabetes and known peripheral vascular disease, presents post right hallux and metatarsal head ampu tation and right heel ulcer refractory to healing. Patient does have right lower extremity arterial disease on ultrasound and would benefit from angiography and intervention if possible. We discussed the risks and benefits of the procedure and patient is agreeable to proceed. We will schedule the patient for right lower extremity angiography, angioplasty and/or stenting if needed. I spent 30 minutes reviewing patient's records, imaging and in consultation with the patient. Thank you for this referral. Cc Dr. Crisostomo Cc Dr. Rabago Allergies Coded Allergies: No Known Allergies (Unverified , 09/04/19) Home Medications Scheduled Aspirin (Aspirin EC), 81 MG PO DAILY, (Reported) Calcitriol (Rocaltrol), 0.25 MCG PO 2XW, (Reported) Chlorthalidone (Chlorthalidone), 25 MG PO DAILY, (Reported) Cholecalciferol (Vitamin D3) (Vitamin D3), 1,000 UNITS PO DAILY, (Reported) Clindamycin Hcl (Cleocin HCl), 600 MG PO BID, (Reported) Furosemide (Furosemide), 40 MG PO BID, (Reported) Gabapentin (Gabapentin), 300 MG PO QHS, (Reported) Glipizide (Glipizide), 5 MG PO BID, (Reported) Insulin Glargine,Hum.rec.anlog (Basaglar Kwikpen U-100), 20 UNITS SQ BID, (Reported) Metoprolol Tartrate (Metoprolol Tartrate), 75 MG PO BID, (Reported) Nifedipine (Nifedipine ER), 30 MG PO DAILY, (Reported) Nifedipine (Nifedipine ER), 90 MG PO DAILY, (Reported) Omeprazole (Omeprazole), 20 MG PO DAILY, (Reported) Polyethylene Glycol 3350 (Miralax), 17 GM PO DAILY, (Reported) Simvastatin (Simvastatin), 20 MG PO QHS, (Reported) VS, I&O, 24H, Fishbone Vital Signs/I&O Vital Signs Date Time Temp Pulse Resp B/P (MAP) Pulse Ox O2 Delivery O2 Flow Rate FiO2 01/18/21 14:09 97.7 86 16 168/76 (106) 100 Room Air DAR SHEFFIELD MD Jan 20, 2021 10:23
== END ==
LOC: M IRPOV 13:37
PROVIDERS: ATTEND Radiology Diagnostic Radiology
DX: T87.89 Other complications of amputation stump (principal); D64.9 Anemia, unspecified; E11.22 Type 2 diabetes mellitus with diabetic chronic kidney disease; I12.0 Hypertensive chronic kidney disease with stage 5 chronic kidney disease or end stage renal disease; I73.9 Peripheral vascular disease, unspecified; L97.419 Non-pressure chronic ulcer of right heel and midfoot with unspecified severity; K21.9 Gastro-esophageal reflux disease without esophagitis; N18.6 End stage renal disease; Z86.73 Personal history of transient ischemic attack (TIA), and cerebral infarction without residual deficits; Z99.2 Dependence on renal dialysis

== ENCOUNTER → 2021-02-09 | Outpatient (CLI) | payer OTHER ==
[~2021-02-09] MED LIST changes: +HumaLOG INSULIN (NovoLOG) PER UNIT As Ordered ONE; +ISOVUE-300 61% 50ML VIAL As Ordered ONE; +LIDOCAINE 1% MDV 20ML VIAL As Ordered ONE; +MIDAZOLAM INJ 2MG/2ML VIAL (J2250 PER 1MG) As Ordered ONE; +diphenhydrAMINE 50MG/ML VIAL (J1200) As Ordered ONE; +fentaNYL 100 MCG/2 ML INJECTION (J3010) As Ordered ONE
[2021-02-09] MEDS: NS 1,000 ML IV SCH (06:57)
--- NOTE | 2021-02-09 07:31 | IRHP ---
[facility] IR Pre-Procedure H & P General Date of Service: Feb 09, 2021 Procedure: Same Day Surgery Interval History and Physical I have seen the patient and reviewed last H & P performed within 30 days. There is no significant interval change. History of Present Illness Chief Complaint The patient is a 60-year-old female admitted with a reason for visit of PAD.. PRE-PROCEDURE DIAGNOSIS: PAD HEART: normal rate. LUNGS: normal breathing at rest. ASA Classification ASA Classification: III-Severe systemic dis. Mallampati Score: II NPO: Yes Problems with prior sedation: No Obstructive Sleep Apnea: No Plan moderate sedation Allergies Coded Allergies: No Known Allergies (Unverified , 09/04/19) Home Medications Scheduled Aspirin (Aspirin EC), 81 MG PO DAILY, (Reported) Calcitriol (Rocaltrol), 0.25 MCG PO 2XW, (Reported) Chlorthalidone (Chlorthalidone), 25 MG PO DAILY, (Reported) Cholecalciferol (Vitamin D3) (Vitamin D3), 1,000 UNITS PO DAILY, (Reported) Clindamycin Hcl (Cleocin HCl), 600 MG PO BID, (Reported) Furosemide (Furosemide), 40 MG PO BID, (Reported) Gabapentin (Gabapentin), 300 MG PO QHS, (Reported) Glipizide (Glipizide), 5 MG PO BID, (Reported) Insulin Glargine,Hum.rec.anlog (Basaglar Kwikpen U-100), 20 UNITS SQ BID, (Reported) Metoprolol Tartrate (Metoprolol Tartrate), 75 MG PO BID, (Reported) Nifedipine (Nifedipine ER), 30 MG PO DAILY, (Reported) Nifedipine (Nifedipine ER), 90 MG PO DAILY, (Reported) Omeprazole (Omeprazole), 20 MG PO DAILY, (Reported) Polyethylene Glycol 3350 (Miralax), 17 GM PO DAILY, (Reported) Simvastatin (Simvastatin), 20 MG PO QHS, (Reported) VS, I&O, 24H, Fishbone Vital Signs/I&O Vital Signs Date Time Temp Pulse Resp B/P (MAP) Pulse Ox O2 Delivery O2 Flow Rate FiO2 02/09/21 06:35 97.9 82 18 97 Room Air DAR SHEFFIELD MD Feb 09, 2021 07:31
[2021-02-09 14:30] VITALS: BP 164/74
--- NOTE | 2021-02-10 10:48 | IRPON ---
IR Postoperative Note Date Of Procedure: Feb 09, 2021 Time Of Procedure: 16:00 IR Postoperative Note IR Right leg angiogram. IR Right below-knee runoff arteriogram. IR Ultrasound-guided left common femoral artery access. IR Moderate sedation. Clinical Information:Nonhealing right first metatarsal amputation site and nonhealing right heel ulcer. Physician: Dr. Fitch. Procedure: The patient was advised of the benefits, risks, and alternatives of the procedure and informed consent was obtained. A time out was performed with verification of the patient's name, MRN, site of procedure, and type of procedure to be performed. The patient was positioned in the supine position on the angiographic table. The site was prepped and draped in the usual sterile fashion. Moderate sedation was performed by the physician including the presence of an independent trained RN, who assisted in monitoring the patient's level of consciousness and physiological status. Following the administration of fentanyl and Versed, the physician spent 90 minutes of continuous [id number] time with the patient. A civil engineering technician radiograph reveals no gross abnormality. Ultrasound of the left groin demonstrates heavily calcified and small left common femoral artery. Lidocaine was used for local anesthesia. The left common femoral artery was accessed, under ultrasound guidance with a microintroducer set. A short 0.018" [place] wire was inserted under fluoroscopy guidance, and the needle was exchanged for a 4 Fr microintroducer sheath. The guidewire and dilator were removed, a 0.035" Bentson wire was advanced under fluoroscopy guidance and placed into the abdominal aorta. A 6 Fr sheath was placed over the wire. An Omni flush catheter was advanced over the wire, under fluoroscopy guidance and used to catheterize the infrarenal abdominal aorta. A pelvic arteriogram was performed and this demonstrates patent infrarenal abdominal aorta, aortic bifurcation and bilateral common iliac arteries. Patent left internal iliac artery but occluded left external iliac artery. This sheath in the left external artery is occlusive, suggesting significant stenosis or occlusion of the underlying left external iliac artery. Patent left femoral artery. Patent right common iliac artery and external iliac artery. Occluded right internal iliac artery. Significant bulky atherosclerotic plaque in the right common femoral artery with greater than 80% stenosis in the right common femoral artery. A glidewire was advanced through the flush catheter, under fluoroscopy guidance and used to gain up and over access into the right common iliac artery. The catheter was removed over the wire. A 4 Georgian glide cath was advanced over the wire, under fluoroscopy guidance and used to catheterize the right external iliac artery. A right leg angiogram was performed, this demonstrates complete occlusion of the proximal and mid superficial femoral artery. Profunda femoris is hypertrophied and patent. There is reconstitution of the distal superficial femoral artery via collaterals. The distal superficial femoral artery has multifocal stenosis. Further angiography down the right leg was performed. This demonstrates patent proximal, mid and distal popliteal artery. Patent anterior tibial artery and tibia peroneal trunk. The posterior tibial artery is occluded. Patent proximal, mid and distal anterior tibial artery, coursing into the right foot. Patent dorsalis pedis. The peroneal artery is hypertrophied and continues to the ankle at which point it gives collateral branches to the plantar and calcaneal branches. The posterior tibial artery remains occluded, with no significant contribution to the right foot. The 4 Georgian angled glide cath, in conjunction with the Glidewire was used under fluoroscopy guidance, to probe the os of the right superficial femoral artery. The catheter was advanced over the wire. Injection of contrast demonstrated unsuccessful intraluminal catheterization and extravasation. Therefore the catheter was retracted back to the right common femoral artery. A follow-up arteriogram was performed. This demonstrates a very small channel, successfully recanalized in the proximal SFA. Profunda femoris remains patent. For further right SFA recanalization, an ipsilateral right antegrade approach would be required. However, given the bulky atherosclerotic plaque in the right common femoral artery, limiting inflow to the right leg, I felt she would be better served with a right common femoral endarterectomy followed by further attempts at ipsilateral, antegrade SFA recanalization in the same session and/or femoropopliteal bypass. The catheter, wire and sheath were removed, pressure held and hemostasis achieved. A sterile dressing was applied to the site. The patient tolerated the procedure well and was returned to the PRU in stable condition. EBL: < 5 mL. Complications:None. Impression: 1. Right leg angiogram demonstrates inflow disease with bulky atherosclerotic plaque in the common femoral artery, limiting inflow to the right leg. 2. Complete occlusion of the proximal and mid right superficial femoral artery with hypertrophy of the profunda femoris and collateral reconstitution the distal superficial femoral artery. 3. Patent popliteal artery, anterior tibial artery and peroneal artery which continue to the right foot. Occluded posterior tibial artery with no significant contribution to the right foot. 4. Given the bulky inflow disease at the common femoral artery, which would not be amenable to stenting, I felt this patient would benefit from a right common femoral cut down and endarterectomy followed by further aggressive attempts at ipsilateral, antegrade SFA recanalization and/or femoropopliteal bypass. I'm referring to vascular surgery for evaluation. Thank you for this referral. Cc DAR Waterman Dr., MD Feb 10, 2021 10:48
== END ==
LOC: M IRPRO 02-04 07:18
PROVIDERS: ATTEND Radiology Diagnostic Radiology
DX: T87.89 Other complications of amputation stump (principal); I70.234 Atherosclerosis of native arteries of right leg with ulceration of heel and midfoot; L97.419 Non-pressure chronic ulcer of right heel and midfoot with unspecified severity; D64.9 Anemia, unspecified; E11.22 Type 2 diabetes mellitus with diabetic chronic kidney disease; E11.51 Type 2 diabetes mellitus with diabetic peripheral angiopathy without gangrene; I12.0 Hypertensive chronic kidney disease with stage 5 chronic kidney disease or end stage renal disease; K21.9 Gastro-esophageal reflux disease without esophagitis; N18.6 End stage renal disease; Z79.4 Long term (current) use of insulin; Z79.82 Long term (current) use of aspirin; Z79.899 Other long term (current) drug therapy; Z86.73 Personal history of transient ischemic attack (TIA), and cerebral infarction without residual deficits; Z99.2 Dependence on renal dialysis
CPT/HCPCS: 36246; 75630; 75774; 99152; 99153; C1769; C1887; C1894; J1200; J1644; J2250; J3010; Q9967

== ENCOUNTER → 2021-03-09 | Outpatient (CLI) | payer OTHER ==
[~2021-03-09] MED LIST changes: -HumaLOG INSULIN (NovoLOG) PER UNIT As Ordered ONE; -ISOVUE-300 61% 50ML VIAL As Ordered ONE; -LIDOCAINE 1% MDV 20ML VIAL As Ordered ONE; -MIDAZOLAM INJ 2MG/2ML VIAL (J2250 PER 1MG) As Ordered ONE; -diphenhydrAMINE 50MG/ML VIAL (J1200) As Ordered ONE; -fentaNYL 100 MCG/2 ML INJECTION (J3010) As Ordered ONE
[2021-03-09 14:35] LABS: CREATININE FOR GFR 1.82 MG/DL (0.55-1.30)
== END ==
LOC: M LAB 13:34
PROVIDERS: ATTEND Surgery Vascular Surgery
DX: N18.6 End stage renal disease (principal)

== ENCOUNTER → 2021-03-21 | Outpatient (CLI) | payer OTHER ==
[2021-03-21 15:57] LABS: HEMATOCRIT 34.1 % (36.0-47.0); HEMOGLOBIN 10.1 g/dl (12.0-15.5); MEAN CORPUSCULAR HEMOGLOBIN 22.9 pg (27.0-33.0); MEAN CORPUSCULAR HGB CONC 29.6 g/dl (32.0-36.5); MEAN CORPUSCULAR VOLUME 77.3 fl (80.0-96.0); PLATELET COUNT, AUTOMATED 832 10^3/uL (150-450); RED BLOOD COUNT 4.41 10^6/uL (4.00-5.40); WHITE BLOOD COUNT 19.1 10^3/uL (4.0-10.0)
[2021-03-21 16:56] LABS: ALBUMIN 2.2 GM/DL (3.2-5.2); BILIRUBIN,TOTAL 0.3 MG/DL (0.2-1.0); CALCIUM LEVEL 9.2 MG/DL (8.8-10.2); CHOLESTEROL RISK RATIO 4.685 (<5); CREATININE FOR GFR 1.29 MG/DL (0.55-1.30); FREE T4 1.31 NG/DL (0.76-1.46); GLOMERULAR FILTRATION RATE 44.6 (>45); POTASSIUM SERUM 4.3 MEQ/L (3.5-5.1); THYROID STIMULATING HORMONE 0.301 uIU/ML (0.358-3.740); TOTAL 25(OH) VITAMIN D 36.8 NG/ML (30.0-100.0); TOTAL PROTEIN 8.1 GM/DL (6.4-8.2)
[2021-03-21 17:25] LABS: HEMOGLOBIN A1c 7.6 %
== END ==
LOC: M PLALAB 12:41
PROVIDERS: ATTEND Student in an Organized Health Care Education/Training Program
DX: Z00.00 Encounter for general adult medical examination without abnormal findings (principal); E11.59 Type 2 diabetes mellitus with other circulatory complications; N25.81 Secondary hyperparathyroidism of renal origin; E61.1 Iron deficiency; E78.1 Pure hyperglyceridemia

== ENCOUNTER → 2021-03-21 | Outpatient (CLI) | payer OTHER | LOC: M PLALAB 12:37 | PROVIDERS: ATTEND Internal Medicine Nephrology | DX: N18.6 End stage renal disease (principal); D63.1 Anemia in chronic kidney disease ==

== ENCOUNTER 2021-03-22 09:17 | Outpatient (CLI) | payer OTHER ==
[2021-03-22] VITALS (8 sets, daily range): BP systolic 170–190; BP diastolic 70–88
[~2021-03-22] VITALS: Ht 162.6 cm; Wt 63.8 kg
[~2021-03-22 09:17] MED LIST changes: +ACETAMINOPHEN 500 MG TAB PO ONE; +diphenhydrAMINE 25MG CAP PO SCH
== END 2021-03-22 14:30 | disposition home or self-care (01) ==
LOC: M INFU 09:17
PROVIDERS: ATTEND Internal Medicine Nephrology
DX: N18.6 End stage renal disease (principal); D63.1 Anemia in chronic kidney disease
CPT/HCPCS: 36430; P9016

== ENCOUNTER → 2021-03-24 | Outpatient (REF) | payer OTHER ==
[~2021-03-24] MED LIST changes: -ACETAMINOPHEN 500 MG TAB PO ONE; -diphenhydrAMINE 25MG CAP PO SCH
== END ==
LOC: M LAB REF 15:43
PROVIDERS: ATTEND Surgery
DX: L97.514 Non-pressure chronic ulcer of other part of right foot with necrosis of bone (principal)